=== PATIENT | female | born 1965 | race Caucasian/White ===

== ENCOUNTER → 2017-07-18 22:21 | Outpatient (CLI) | payer BC, SELFPAY ==
[2017-07-21 15:13] LABS: HPV Reflexed? NOT INDICATED
== END ==
PROVIDERS: Visit Provider Obstetrics & Gynecology
DX: Z12.4 Encounter for screening for malignant neoplasm of cervix (principal); Z12.72 Encounter for screening for malignant neoplasm of vagina
CPT/HCPCS: 88175; G0145

== ENCOUNTER → 2017-08-15 09:14 | Outpatient (CLI) | payer BC, SELFPAY ==
--- NOTE | 2017-08-15 09:17 | BI_ITS ---
MAMMOGRAPHY - BILATERAL SCREENING REASON FOR EXAM: Female, 52 years old. Routine annual screening examination. PERTINENT HISTORY: Non-contributory. TECHNIQUE: Digital bilateral breast allyson (3D mammographic acquisition) in the CC and MLO projections. 2-D mediolateral oblique (MLO) and craniocaudad (CC) views of both breasts were obtained. CAD: Full Field Digital Mammography with Computer Added Detection was performed. COMPARISON: Comparison is made with prior study dated August 09, 2016 and May 05, 2015. FINDINGS: Breast Composition: There are scattered areas of fibroglandular density. There are no dominant masses or suspicious calcifications. Stable benign-appearing bilateral axillary lymph nodes. No other significant abnormalities are identified. There has been no significant change since the prior study. BI/SCREENING MAMM (CAD), BILAT IMPRESSION: Stable bilateral screening mammogram. Yearly follow-up mammogram recommended. (A) ASSESSMENT CATEGORY: BIRADS Category 2: Benign. A letter regarding these results will be sent to the patient by the facility within 30 days. Approximately 10% of breast cancers are not detected by mammography. A normal mammogram should not delay biopsy of a clinically suspicious abnormality. [id number] Electronically Signed: Jac Chandra MD at 11:12 EDT Tel [phone], Service support ,
== END ==
PROVIDERS: Family Provider Family Medicine; PCP Family Medicine; Visit Provider Obstetrics & Gynecology
DX: Z12.31 Encounter for screening mammogram for malignant neoplasm of breast (principal)
CPT/HCPCS: 77063; 77067

== ENCOUNTER → 2017-10-25 14:41 | Outpatient (CLI) | payer BC, SELFPAY ==
--- NOTE | 2017-10-25 14:47 | CT_ITS ---
STUDY: CT CHEST WITHOUT CONTRAST REASON FOR EXAM: Female, 52 years old. Acute midline thoracic back pain RADIATION DOSAGE (If Supplied By Facility): CTDIvol = ( 18.08 ) mGy, DLP = ( 645.96 ) mGycm TECHNIQUE: Transaxial imaging was performed without the administration of intravenous contrast material. Individualized dose optimization techniques were used for this CT. COMPARISON: None. FINDINGS: Closely unremarkable thyroid. Lungs are adequately inflated and clear. There are several pulmonary micronodules noted bilaterally. One in the right upper lobe measuring 4.3 mm. A second in the right middle lobe measuring 2.8 mm and a third in the left upper lobe measuring 4.5 mm. There is no demonstrated pleural abnormality. There is borderline cardiomegaly. Normal pericardium. Several mediastinal lymph nodes are noted without bulky appearance. Normal hilar regions. Normal unenhanced pulmonary arteries. Normal aorta arch and descending thoracic aorta. There are multi-level degenerative changes of the thoracic spine. There is no demonstrated abnormality of the visualized upper abdomen. CT/Chest without Contrast IMPRESSION: 1. No acute airspace disease. 2. Bilateral pulmonary micronodules as above. Recommend repeat chest CT in 3-6 months 3. Several nonspecific small mediastinal lymph nodes Electronically Signed: Butch Egan DO at 11:48 EDT Tel , Service support ,
== END ==
PROVIDERS: Family Provider Family Medicine; PCP Family Medicine; Visit Provider Family Medicine
DX: M54.6 Pain in thoracic spine (principal)
CPT/HCPCS: 71250

== ENCOUNTER → 2018-07-06 14:07 | Outpatient (CLI) | payer BC, SELFPAY ==
--- NOTE | 2018-07-06 14:10 | CT_ITS ---
STUDY: CT CHEST WITH CONTRAST REASON FOR EXAM: Female, 53 years old. Follow-up of mediastinal lymph nodes RADIATION DOSAGE (If Supplied By Facility): CTDIvol = ( 12.99 ) mGy, DLP = ( 592.94 ) mGycm TECHNIQUE: Transaxial imaging was performed following intravenous administration of Isovue 300 100 IV. Individualized dose optimization techniques were used for this CT. COMPARISON: None. FINDINGS: TRACHEA, THYROID, ESOPHAGUS: No tracheomalacia,stricture or wall thickening. Thyroid and esophagus are normal CARDIOVASCULAR SYSTEM: The thoracic aorta is normal with no focal aneurysm or dissection. There are no abnormal calcifications/metallic densities at the aortic root. The pulmonary trunk and the left and right pulmonary arteries and their lobar and segmental branches all fail to show any abnormal and persistent filling defects to indicate the presence of pulmonary embolism. The heart is normal in size with no demonstration of any right ventricular strain. No developmental vascular anomalies are seen. JULIÁN AND LYMPH NODES: No hilar masses and no mediastinal, hilar, axillary or supraclavicular adenopathy the small reactive mediastinal lymph nodes noted in the examination of October 25, 2017 are no more evident LUNGS, LOW-ATTENUATION: No traction bronchiectasis, honeycombing,emphysema, lung cysts or cavitations LUNGS, HIGH ATTENUATION: No nodules/masses, ground glass opacities/consolidations or increased interstitial markings LUNGS, MOSAIC/CRAZY PAVING: Not evident PLEURA AND CHEST WALL: No plural effusions, pneumothoraces,rib fractures or any osteolytic/osteoblastic changes . The soft tissue chest wall including the breasts are normal UPPER ABDOMEN: Fatty infiltration of the liver. CT/Chest WITH Contrast IMPRESSION: No acute findings in the lungs. No evidence of any pulmonary embolism. The thoracic aorta is normal. The small mediastinal lymph nodes noted in the lateral examination of October 26, 2007 seen are no more evident Electronically Signed: Davon Claudio MD at 5:54 EST Tel , Service support ,
[2018-07-06 15:05] LABS: CREATININE FINGERSTICK 1.1 mg/dL (0.55-1.02)
== END ==
PROVIDERS: Family Provider Family Medicine; PCP Family Medicine; Referring Provider Family Medicine; Visit Provider Family Medicine
DX: R59.0 Localized enlarged lymph nodes (principal)
CPT/HCPCS: 71260; Q9967

== ENCOUNTER → 2018-09-11 | Outpatient (CLI) | payer BC, SELFPAY ==
--- NOTE | 2018-09-11 07:40 | BI_ITS ---
MAMMOGRAPHY - BILATERAL SCREENING 3-D TOMOSYNTHESIS REASON FOR EXAM: Female, 53 years old. Bilateral Screening 3-D tomosynthesis PERTINENT HISTORY: Right nipple tenderness times one week.. TECHNIQUE: 2-D mammograms and 3-D Tomosynthesis of the breast (s) were performed. CAD was performed. COMPARISON: August 15, 2017. FINDINGS: The breast composition is composed of scattered fibroglandular density. Scattered benign calcifications are seen. No dense spiculated masses or suspicious microcalcifications are identified. No architectural distortion is identified. There is no skin thickening or retraction. There has been no significant change since the prior study. BI/SCREENING MAMM (CAD), BILAT IMPRESSION: No mammographic signs of malignancy. Routine yearly mammograms recommended. ASSESSMENT CATEGORY: BIRADS Category 1: Negative. A letter regarding these results will be sent to the patient by the facility within 30 days. FOLLOW UP RECOMMENDATION: Yearly follow up mammogram recommended. (A) Approximately 10% of breast cancers are not detected by mammography. A normal mammogram should not delay biopsy of a clinically suspicious abnormality. Electronically Signed: Jason Chaudhry MD at 15:40 EDT , Service support ,
== END | disposition home or self-care (01) ==
LOC: OPBI 07:39
PROVIDERS: Family Provider Family Medicine; PCP Family Medicine; Referring Provider Family Medicine; Visit Provider Family Medicine
DX: Z00.00 Encounter for general adult medical examination without abnormal findings (principal); Z12.31 Encounter for screening mammogram for malignant neoplasm of breast
CPT/HCPCS: 77063; 77067

== ENCOUNTER → 2019-11-23 11:13 | Outpatient (CLI) | payer OTHER, SELFPAY ==
[2019-11-28 19:59] LABS: HPV Reflexed? NOT INDICATED
== END ==
PROVIDERS: PCP Family Medicine; Visit Provider Obstetrics & Gynecology
DX: Z12.4 Encounter for screening for malignant neoplasm of cervix (principal)
CPT/HCPCS: 88175; G0145

== ENCOUNTER → 2020-08-01 11:30 | Outpatient (CLI) | payer OTHER, SELFPAY ==
--- NOTE | 2020-08-01 11:35 | RAD_ITS ---
EXAM: XR RIGHT RIBS, 2 VIEWS : 1965 CLINICAL INDICATION: PAIN TECHNIQUE: Frontal and oblique views of the right ribs. This report was created using [employer] report generation technology. COMPARISON: CT scan of the chest from July 06, 2018 FINDINGS: LUNGS AND PLEURAL SPACES: Unremarkable. No consolidation or edema. No pneumothorax. No effusion. BONES/JOINTS: Unremarkable. No displaced fracture. No sclerotic or destructive changes observed. SOFT TISSUES: Unremarkable. No soft tissue swelling or gas. RAD/Ribs Unil 2V No CXR IMPRESSION: No evidence of displaced rib fracture. at 2111 Reported and signed by: Parish Rocha MD Electronically Signed: Parish Rocha MD at 21:10 EDT Tel , Service support ,
--- NOTE | 2020-08-01 11:35 | RAD_ITS ---
HISTORY: BACK PAIN COMPARISON: CT scan of the chest from July 06, 2018 FINDINGS: # of images incl. paperwork: 2 XR Spine Thoracic 2 Views: Kyphosis persists. Multiple bridging enthesophytes persists. Thoracic vertebral bodies are normal in height. No acute thoracic spine fracture or subluxation. No significant degenerative change. RAD/Thoracic Spine 2 Views IMPRESSION: No acute thoracic spine fracture or subluxation. at 2004 Reported and signed by: Parish Rocha MD Electronically Signed: Parish Rocha MD at 21:08 EDT Tel , Service support ,
--- NOTE | 2020-08-01 11:35 | RAD_ITS ---
HISTORY: PAIN EXAM: XR Chest 2 Views: COMPARISON: May 19, 2015 FINDINGS: # of images incl. paperwork: 2 Lungs are clear. Heart is not enlarged. No acute osseous pathology perceived. Pulmonary vascularity is distinct. No effusions. RAD/Chest PA and Lateral IMPRESSION: No acute cardiopulmonary disease. at 2108 Reported and signed by: Parish Rocha MD Electronically Signed: Parish Rocha MD at 21:07 EDT Tel , Service support ,
== END ==
PROVIDERS: PCP Family Medicine; Referring Provider Family Medicine; Visit Provider Family Medicine
DX: M54.9 Dorsalgia, unspecified (principal)
CPT/HCPCS: 71046; 71100; 72070

== ENCOUNTER 2020-09-08 10:51 | Day surgery (SDC) | payer OTHER, SELFPAY ==
--- NOTE | 2020-09-05 13:30 | EKG12_ITS ---
Test Reason : PRE-OP Blood Pressure : / mmHG Vent. Rate : 073 BPM Atrial Rate : 073 BPM P-R Int : 164 ms QRS Dur : 082 ms QT Int : 372 ms P-R-T Axes : 053 -11 014 degrees QTc Int : 409 ms Normal sinus rhythm Normal ECG Confirmed by CAM BURK, ANKUSH ([id number]), features editor NEHEMIAH TORRES ([id number]) on 09/08/2020 12:30:44 PM Referred By: Godfrey Russell Confirmed By:ANKUSH LEVY MD
--- NOTE | 2020-09-05 13:32 | RAD_ITS ---
STUDY: X-RAY CHEST REASON FOR EXAM: Female, 55 years old. PREOP TECHNIQUE: PA and lateral views of the chest. COMPARISON: 08/01/2020 FINDINGS: The lungs are clear and expanded. There is no demonstrated pleural abnormality. Normal size heart. Normal mediastinum and kenna. Normal visualized pulmonary arteries. Normal visualized aortic arch and descending thoracic aorta. Normal visualized thoracic spine. Normal visualized ribs, clavicles, and shoulders. There is no demonstrated abnormality of the visualized soft tissue structures of the upper abdomen. RAD/Chest PA and Lateral IMPRESSION: Normal x-ray examination of the chest. Electronically Signed: Adonay Easley MD at 12:07 EDT Tel , Service support ,
[2020-09-05 14:54] LABS: Hematocrit 42.2 % (37-47); Hemoglobin 13.7 g/dL (12.0-15.0); Mean Corp Hgb Conc 32.5 g/dL (32-36); Mean Corpuscular Hgb 31.4 pg (27.0-32.0); Mean Corpuscular Volume 96.6 fL (81-99); Mean Platelet Vol. 9.6 fl (6.2-12.0); Platelet Count 294 K/mm3 (150-450); RBC Distribution Width SD 42.9 fl (35.1-43.9); Red Blood Count 4.37 M/mm3 (4.2-5.4); White Blood Count 8.4 K/mm3 (4.4-11.0)
[2020-09-05 15:01] LABS: Prothrombin Time (Protime)PT. 12.4 SECONDS (11.7-14.9)
[2020-09-05 15:03] LABS: Partial Thromboplast Time 24.3 Seconds (24.1-36.2)
[2020-09-05 15:09] LABS: Microalbumin,Random Urine 10.9 mg/L (NO RANGE EST.)
[2020-09-05 16:04] LABS: ALB/GLOB Ratio 1.1 RATIO (0.9-2.4); AST(SGOT) 24 U/L (15-37); Alanine Aminotransfer ALT/SGPT 40 U/L (13-56); Albumin, Serum 3.9 g/dL (3.2-5.0); Alkaline Phosphatase 73 U/L (45-117); Anion Gap 7 (5-15); BUN 14 mg/dL (7-18); BUN/Creat Ratio 19.3 RATIO (10-20); Calcium,Total 9.6 mg/dL (8.5-10.1); Chloride 105 mmol/L (98-107); Cholesterol 145 mg/dL (200); Creatinine, Serum 0.73 mg/dL (0.55-1.02); EST Glomerular Filtration Rate 88 mL/min (>60); Est Glom Filt Rate - Afr Amer 106 mL/min (>60); Globulin 3.5 g/dL (2.2-4.2); Glucose 86 mg/dL (74-106); High Density Lipoprotein 55 mg/dL; Potassium 3.7 mmol/L (3.5-5.1); Protein, Total 7.4 g/dL (6.4-8.2); Sodium Level 138 mmol/L (136-145); Thyroid Stim Hormone (TSH) 2.25 uIU/mL (0.358-3.74); Triglycerides 135 mg/dL; Very Low Density Lipoprotein 27 mg/dL (5-40)
[2020-09-05 16:23] LABS: Hemoglobin A1c 5.5 % (3.8-5.6)
[2020-09-05 16:39] LABS: Internal QC Validated? YES +Cl - CLEAR BKGD; Pregnancy, Serum, hCG Quali. NEGATIVE Negative
[2020-09-05 18:48] LABS: Vitamin D,25 Hydroxy 13.3 ng/mL
--- NOTE | 2020-09-07 15:31 | PCM.HP.BLA ---
History and Physical Date of Admission: 09/08/20 Surgical History and Physical Ondina Foster, a 55 year old female 0 0 1 0 0, presents for D and C and hysteroscopy on September 08, 2020 at 1:00. 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 Vaginal Discharge which began 1 month ago. Ondina claims it started after normal activity and has been present 1 day. It occurs randomly. It is located in the vagina. Ondina characterizes the quality spotting. Severity is mild; It is aggravated by none. It is relieved by none. Associated signs and symptoms are none. Additional comments are: history of simple EM hyperplasia; EM stripe 7 mm. MEDICATIONS HISTORY: Patient is also takin. trazodone 50 mg tablet, 1 tab po PRN HS 2. fluoxetine 10 mg tablet, one by mouth daily 3. Abilify 5 mg tablet, One tablet by mouth daily 4. lisinopril 20 mg tablet, One tablet by mouth twice daily 5. amlodipine 5 mg tablet, One pill by mouth once a day ALLERGIES: NKDA, codeine sulfate, Nausea, fentanyl, Nausea/vomiting, Codeine, Severe nausea & vomiting, Fentanyl and Severe nausea & vomiting Infections - Chicken pox Illnesses - Obsessive-compulsive disorders and Hypertension Accidents - None Hospitalizations - see surgery Anxiety, Hypochondriasis, Low back pain; Review of Systems: GENERAL - Denies fever, or chills SKIN - Denies skin changes EYES - Denies visual changes EARS - Denies difficulty hearing NOSE - Denies nasal congestion or bleeding MOUTH - Denies sore throat or difficulty swallowing NECK - Denies pain or swelling RESPIRATORY - Denies shortness of breath or wheezing CARDIOVASCULAR - Denies palpitations or chest pain GASTROINTESTINAL - Denies nausea, vomiting, diarrhea, constipation GENITOURINARY - Denies dysuria, frequency of urination, incontinence of urine MUSCULOSKELETAL - Denies joint or muscle pain NEUROLOGICAL - Denies localized numbness or weakness PSYCHIATRIC - Denies depression or anxiety ENDOCRINE - Denies heat or cold intolerance, weight loss or gain HEMATO-IMMUNOLOGIC - Denies excesive bleeding with cuts SOCIAL HISTORY: Alcohol Use - drinks occasionally Smoking - Stopped smoking 09/2016, Uses vapor pen Diet - no special diet Lifestyle - moderate stress lifestyle Exercise - none Seat Belt Use - always Employer - [employer] [employer] 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 Father: -- circulatory issues. MENSTRUAL HISTORY: LMP Known?- ApproximateAmount/Duration - 8 day period, Frequency - 5-6 months days, LMP - 11/15/13, Age Onset Menarche - 10 PAST PREGNANCIES: Total Pregnancies - 1; Full Term Pregnancies - 0; Premature - 0; Abortions, Induced - 1; Abortions, Spontaneous - 0; Ectopics - 0; Multiple Births - 0; Living Children - 0 SURGICAL HISTORY: 1. 05/23/2013 hysteroscopy, D and C, polypectomy ; Dr José Luis Longoria - PHYSICAL EXAM BP- 122/94 Sitting, Right arm, large cuff Weight- 249.67750 lbs Height- 65.25 inch BMI:41.24 CONSTITUTIONAL - NAD, well nourished, and well developed SKIN - No rash, lesions, or ulcers HEENT - Normocephalic, PERRLA, EOMI NECK - No nodes, no nuchal rigidity and thyroid normal size and texture LYMPH NODES - Palpation of lymph nodes in neck and groins within normal limits LUNGS - CTA x2 without wheezes, crackles or rales CARDIAC - Regular rate and rhythm without rubs, murmurs, or gallops BREAST - No dominant masses, no tenderness, no axillary adenopathy, no nipple discharge, no skin changes ABDOMEN - Without hepatosplenomegaly, distention, masses, rebound, or guarding; normal bowel sounds; no hernias EXTREMITIES - No edema or calf tenderness NEUROLOGICAL - Cranial nerves II-XII grossly intact PSYCHIATRIC - A and O to time, place, person, mood and affect External Genitial Vagina - non-tender without lesions Urethra/Urethral Meatus - non-tender Bladder - non-tender Vagina - loss of rugae Cervix - without cervical motion tenderness and has normal size and features without evident lesions Uterus - 5-6 cm in size, mobile and nontender Adnexa - clear without massess or tenderness ASSESSMENT/PLAN: 1. Postmenopausal Bleeding U/S shows thickened EM. Pt declined EMBx. History of simple EM Hyperplasia. Will proceed with D and C, H/S. Discussed RBAS and all questions answered.
[2020-09-08] VITALS (8 sets, daily range): BP systolic 116–144; BP diastolic 68–78; PULSE 63–74; RESP 16–18; TEMP 36.1–36.4; O2SAT 99–100; BMI 41.5
--- NOTE | 2020-09-08 | EMB_PTH ---
PATIENT: BLAINE CHIN LOC: [facility] [place] U#:[id number] AGE/SX: 55/F ROOM: RE09/08/[address]: Dr. Godfrey Russell MD : 1965 BED: DIS: 09/08/2020 SPEC #: [id number] RECD: 09/08/20 13:40 STATUS: SHANNAN RELucinda #: [id number] NAVYA: 09/08/20 00:[address]: Godfrey Russell DEPT: SURGICAL PATHOLOGY RECD BY: Aman Bañuelos ENTERED: 09/09/20 08:03 SP TYPE: ENDOM BX/C OT DR: Dr. Ryan Stone MD Tissues: A - Endometrium, NOS B - Endocervical Procedures: Surgery Specimen Level IV HEADER OPERATION: Hysteroscopy, dilation and curettage PRE-OP DIAGNOSIS: Postmenopausal bleeding TISSUE SUBMITTED: A ? Endometrial curettings, B ? Endocervical curettings MICROSCOPIC DIAGNOSIS A. Endometrium, curettings: Polypoid fragments of simple hyperplasia without atypia with focal glandular breakdown. Rare strips of benign superficial squamous mucosa. B. Endocervix, curettings: Rare strips of benign superficial endocervix and squamous mucosa. No evidence of dysplasia. AM:matty 09/10/2020 COMMENT Case has been reviewed in consultation with Dr. Delcid who concurs with the above diagnosis. IDC:ARNALDO MICROSCOPIC DESCRIPTION Slides are reviewed. GROSS DESCRIPTION A - Received in fixative is one container labeled with the patient's name and designated endometrial curettings. The specimen consists of multiple hemorrhagic fragments of shields soft tissue that in aggregate measure 1.5 x 1.5 x 0.2 cm. The specimen is totally submitted in one cassette. B - Received in fixative is one container labeled with the patient's name and designated endocervical curettings. The specimen consists of multiple fragments of hemorrhagic mucoid tissue that in aggregate measure 1.5 x 1.5 x 0.1 cm. The specimen is totally submitted in one cassette. / ARNALDO:matty 09/09/20 TC:5 CPT: 07932 x2
[2020-09-08 09:20] LABS: PTHIN 48.2 pg/mL (18.4-80.1)
[2020-09-08] MEDS: Lactated Ringers 1,000 ML 100 ML IV (11:38)
--- NOTE | 2020-09-08 12:57 | OP.PCM_ITS ---
Problems Associated Problem List Diagnoses (1) Post-menopausal bleeding: Report of Operation Date of Procedure: 09/08/20 Pre-Operative Diagnosis: Postmenopausal Bleeding, Thickened Endometrium Post-Operative Diagnosis: Postmenopausal Bleeding, Thickened Endometrium Surgery/Procedure Performed:: Diagnostic Hysteroscopy, Dilation and Curettage Description of Surgical Findings:: 8 cm uterus with atrophic endometrium and thin 1 cm polyp. Type of Anesthesia: MAC Anesthesiologist: Domenic Dominguez Specimen's removed: Endocervical and endometrial curettings Drains: None Estimated Blood Loss (mL): Minimal Fluids Replaced: Styloid Description of Procedure: Surgeon: Godfrey Russell MD, FACOG Indications: This is a 55 year old patient who has the above diagnosis. The patient has been counseled regarding the risk and indications of this procedure including the possibility of bleeding, infection, and injury to surrounding structures such as bowel bladder. All questions were answered and we consider the patient well-informed. Procedure: The patient was taken to the operating room where after induction of general anesthesia, she was placed in the dorsolithotomy position and prepped a nd draped in the usual sterile fashion. The bladder was drained of approximately 50 cc of clear yellow urine with a catheter. Anterior cervix was grasped with the tenaculum and dilated to about 4-5 mm. A 3 mm hysteroscope was placed in the uterus of the above findings were noted. Cervix was dilated to about 7-8 mm and uterus was gently curetted removing all contents. Hysteroscope was reinserted and all material was noted to be removed. In the course of the procedure approximately 100 cc of saline distending media was used and virtually all of this was recovered. Patient tolerated procedure well was taken to recovery room in satisfactory condition sponge instrument and needle counts were all reportedly correct. Estimated blood loss for the case was minimal. Specimens to pathology was endometrial curettings Complications: None Complications None Admit VTE Documentation VTE Present on Admission: Yes VTE Mechan Device Prophylaxis: SCD's
--- NOTE | 2020-09-08 13:07 | PCM.DC ---
Discharge Instructions Outpatient Procedure Reason For Visit: Postmenopausal Bleeding Diet Discharge Diet: No restrictions (Increase fluid intake for the next 48 hours.) and - (Increase fluid intake for 48 hours.) Activity Discharge Activity: Return to Normal Activity, May Drive (when you are no longer taking narcotic pain medications.), May Shower and May Take a Tub Bath (in 7 days) May resume sexual activity in: 1 week Additional Activity Instructions:: Ambulate often the next week after surgery. Nothing in the vagina for 5 days. Dressing / Incision Call your doctor if your incision/area has: Continuous Slow Oozing, Sudden Increased Bleeding, Increased Pain/ Swelling, Increased Redness and Foul Smelling Discharge Call your doctor if you observe: Fever of 101 or Higher, Inability to urinate, Inability to have a bowel movement and Using more than one pad per hour Follow Up Care Please Follow Up With: Godfrey Russell MD When: 2-3 weeks Test Results: Test results from this visit will be discussed in further detail at your follow-up appointment, if applicable. Discharge Plan Admission Primary Reason for Your Visit: Polstmenopausal Bleeding Attending Provider: Godfrey Russell Primary Care Provider: Ryan Stone Discharge Orders/Prescriptions Prescriptions: Continued trazodone 50 MG tablet 50 mg PO QHS RF: 0 lisinopril 20 mg Tablet 20 mg PO BID RF: 0 amlodipine 5 mg Tablet 5 mg PO DAILY RF: 0 fluoxetine 10 MG capsule 10 mg PO QHS RF: 0 aripiprazole 5 MG tablet 5 mg PO QHS RF: 0 Referrals: Ryan Stone MD [Primary Care Provider] - Disposition Disposition (needs filled in before D/C Order can be placed): Home, self care
--- NOTE | 2020-09-08 13:24 | DCINST_ITS ---
Discharge Instructions Outpatient Procedure Reason For Visit: Postmenopausal Bleeding Diet Discharge Diet: No restrictions and - (Increase fluid intake for 48 hours.) Activity Discharge Activity: May Drive (when you are no longer taking narcotic pain m edications.), May Shower and May Take a Tub Bath (in 7 days) May resume sexual activity in: 1 week Additional Activity Instructions:: Ambulate often the next week after surgery. Nothing in the vagina for 5 days. Dressing / Incision Call your doctor if your incision/area has: Continuous Slow Oozing, Sudden Increased Bleeding, Increased Pain/ Swelling, Increased Redness and Foul Smelling Discharge Call your doctor if you observe: Fever of 101 or Higher, Inability to urinate, Inability to have a bowel movement and Using more than one pad per hour Follow Up Care Please Follow Up With: Godfrey Russell MD Test Results: Test results from this visit will be discussed in further detail at your follow-up appointment, if applicable. Discharge Plan Admission Primary Reason for Your Visit: Polstmenopausal Bleeding Attending Provider: Godfrey Russell Primary Care Provider: Ryan Stone Discharge Orders/Prescriptions Prescriptions: Continued trazodone 50 MG tablet 50 mg PO QHS RF: 0 lisinopril 20 mg Tablet 20 mg PO BID RF: 0 amlodipine 5 mg Tablet 5 mg PO DAILY RF: 0 fluoxetine 10 MG capsule 10 mg PO QHS RF: 0 aripiprazole 5 MG tablet 5 mg PO QHS RF: 0 Referrals: Ryan Stone MD [Primary Care Provider] - Disposition Disposition (needs filled in before D/C Order can be placed): Home, self care
== END 2020-09-08 14:59 | disposition home or self-care (01) ==
LOC: SDC 10:52 → AC 10:55
PROVIDERS: PCP Family Medicine; Referring Provider Obstetrics & Gynecology; Visit Provider Obstetrics & Gynecology
PROC: 0UDB8ZZ Extraction of Endometrium, Via Natural or Artificial Opening Endoscopic (ICD-10-PCS; CPT 58558; principal; 2020-09-08 12:50)
DX: N85.01 Benign endometrial hyperplasia (principal); N95.0 Postmenopausal bleeding; Z20.822 Contact with and (suspected) exposure to COVID-19; I10 Essential (primary) hypertension; F41.9 Anxiety disorder, unspecified; F42.9 Obsessive-compulsive disorder, unspecified; Z79.899 Other long term (current) drug therapy; F17.290 Nicotine dependence, other tobacco product, uncomplicated
CPT/HCPCS: 00952; 58558; 36415; 71046; 80053; 80061; 82043; 82306; 82570; 83036; 83970; 84443; 84703; 85027; 85610; 85730; 86850; 86900; 86901; 87426; 88305; 93005; C9803; J7120; J2405

== ENCOUNTER → 2020-09-18 07:14 | Outpatient (CLI) | payer OTHER, SELFPAY ==
[2020-09-08 11:22] VITALS: BMI 41.5
--- NOTE | 2020-09-18 07:16 | BI_ITS ---
MAMMOGRAPHY - BILATERAL SCREENING REASON FOR EXAM: Female, 55 years old. Routine annual screening examination. PERTINENT HISTORY: Non-contributory. TECHNIQUE: Digital bilateral breast nayla (3D mammographic acquisition) in the CC and MLO projections. 2-D mediolateral oblique (MLO) and craniocaudad (CC) views of both breasts were obtained. CAD: Full Field Digital Mammography with Computer Added Detection was performed. COMPARISON: Comparison is made with prior study dated 09/11/2018 and 08/15/2017. FINDINGS: Breast Composition: There are scattered areas of fibroglandular density. There are no dominant masses or suspicious calcifications. Stable benign-appearing bilateral axillary lymph nodes. No other significant abnormalities are identified. There has been no significant change since the prior study. BI/SCRN MAMM (CAD)W/NAYLA BILAT IMPRESSION: Stable bilateral screening mammogram. Yearly follow-up mammogram recommended. (A) ASSESSMENT CATEGORY: BIRADS Category 2: Benign. A letter regarding these results will be sent to the patient by the facility within 30 days. Approximately 10% of breast cancers are not detected by mammography. A normal mammogram should not delay biopsy of a clinically suspicious abnormality. [id number] Electronically Signed: Jac Chandra MD at 8:29 EDT , Service support ,
== END ==
PROVIDERS: PCP Family Medicine; Referring Provider Obstetrics & Gynecology; Visit Provider Obstetrics & Gynecology
DX: Z12.31 Encounter for screening mammogram for malignant neoplasm of breast (principal)
CPT/HCPCS: 77063; 77067

== ENCOUNTER 2020-10-27 08:31 | Day surgery (SDC) | payer OTHER, SELFPAY ==
[2020-09-08 11:22] VITALS: BMI 41.5
[2020-10-22 14:55] LABS: Hematocrit 41.8 % (37-47); Hemoglobin 13.8 g/dL (12.0-15.0); Mean Corpuscular Hgb 31.9 pg (27.0-32.0); Mean Corpuscular Volume 96.8 fL (81-99); Mean Platelet Vol. 9.4 fl (6.2-12.0); Platelet Count 304 K/mm3 (150-450); RBC Distribution Width CV 12.7 % (11.6-14.6); RBC Distribution Width SD 45.1 fl (35.1-43.9); Red Blood Count 4.32 M/mm3 (4.2-5.4); White Blood Count 7.6 K/mm3 (4.4-11.0)
[2020-10-22 15:03] LABS: Partial Thromboplast Time 24.8 Seconds (24.1-36.2); Prothrombin Time (Protime)PT. 12.1 SECONDS (11.7-14.9)
[2020-10-22 15:54] LABS: ALB/GLOB Ratio 1.1 RATIO (0.9-2.4); AST(SGOT) 17 U/L (15-37); Alanine Aminotransfer ALT/SGPT 25 U/L (13-56); Albumin, Serum 3.8 g/dL (3.2-5.0); Alkaline Phosphatase 71 U/L (45-117); Anion Gap 6 (5-15); BUN 17 mg/dL (7-18); BUN/Creat Ratio 23.3 RATIO (10-20); Calcium,Total 9.4 mg/dL (8.5-10.1); Chloride 105 mmol/L (98-107); Creatinine, Serum 0.73 mg/dL (0.55-1.02); EST Glomerular Filtration Rate 87 mL/min (>60); Est Glom Filt Rate - Afr Amer 106 mL/min (>60); Globulin 3.4 g/dL (2.2-4.2); Glucose 92 mg/dL (74-106); Magnesium 2.1 mg/dL (1.6-2.6); Potassium 3.8 mmol/L (3.5-5.1); Protein, Total 7.2 g/dL (6.4-8.2); Sodium Level 139 mmol/L (136-145)
[2020-10-22 16:15] LABS: Pregnancy, Serum, hCG Quali. NEGATIVE Negative (0-9 Nonpreg)
[2020-10-22 16:54] LABS: Internal QC Validated? YES +Cl - CLEAR BKGD
--- NOTE | 2020-10-25 14:07 | HP.PCM_ITS ---
History and Physical Date of Admission: 10/27/20 Surgical History and Physical Ondina Foster, a 55 year old female 0 0 1 0 0, presents for RAVH/BSO on October at 12:15. 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 She is postmenopausal. Updated medications, allergies and hx. She had a hysteroscopy and D+C done 09/08/20 which showed simple endometrial hyperplasia. With this result, the patient desires to proceed with hysterectomy. MEDICATIONS HISTORY: Patient is also takin. trazodone 50 mg tablet, 1 tab po PRN HS 2. fluoxetine 10 mg tablet, one by mouth daily 3. Abilify 5 mg tablet, One tablet by mouth daily 4. lisinopril 20 mg tablet, One tablet by mouth twice daily 5. amlodipine 5 mg tablet, One pill by mouth once a day ALLERGIES: NKDA, codeine sulfate, Nausea, fentanyl, Nausea/vomiting, Codeine, Severe nausea & vomiting, Fentanyl and Severe nausea & vomiting Infections - Chicken pox Illnesses - Obsessive-compulsive disorders and Hypertension Accidents - None Hospitalizations - see surgery Anxiety, Hypochondriasis, Low back pain; Review of Systems: GENERAL - Denies fever, or chills SKIN - Denies skin changes EYES - Denies visual changes EARS - Denies difficulty hearing NOSE - Denies nasal congestion or bleeding MOUTH - Denies sore throat or difficulty swallowing NECK - Denies pain or swelling RESPIRATORY - Denies shortness of breath or wheezing CARDIOVASCULAR - Denies palpitations or chest pain GASTROINTESTINAL - Denies nausea, vomiting, diarrhea, constipation GENITOURINARY - Denies dysuria, frequency of urination, incontinence of urine MUSCULOSKELETAL - Denies joint or muscle pain NEUROLOGICAL - Denies localized numbness or weakness PSYCHIATRIC - Denies depression or anxiety ENDOCRINE - Denies heat or cold intolerance, weight loss or gain HEMATO-IMMUNOLOGIC - Denies excesive bleeding with cuts SOCIAL HISTORY: Alcohol Use - drinks occasionally Smoking - Stopped smoking 09/2016, Uses vapor pen Diet - no special diet Lifestyle - moderate stress lifestyle Exercise - none Seat Belt Use - always 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 Father: -- circulatory issues. MENSTRUAL HISTORY: LMP Known?- ApproximateAmount/Duration - 8 day period, Frequency - 5-6 months days, LMP - 11/15/13, Age Onset Menarche - 10 PAST PREGNANCIES: Total Pregnancies - 1; Full Term Pregnancies - 0; Premature - 0; Abortions, Induced - 1; Abortions, Spontaneous - 0; Ectopics - 0; Multiple Births - 0; Living Children - 0 SURGICAL HISTORY: 1. 09/08/2020 hysteroscopy, D and C ; Godfrey Russell M.D. 2. 05/23/2013 hysteroscopy, D and C, polypectomy ; Dr José Luis Longoria PHYSICAL EXAM BP- 142/84 Sitting, Right arm, large cuff Weight- 250.96248 lbs Height- 65.25 inch BMI:41.37 CONSTITUTIONAL - NAD, well nourished, and well developed SKIN - No rash, lesions, or ulcers HEENT - Normocephalic, PERRLA, EOMI NECK - No nodes, no nuchal rigidity and thyroid normal size and texture LYMPH NODES - Palpation of lymph nodes in neck and groins within normal limits LUNGS - CTA x2 without wheezes, crackles or rales CARDIAC - Regular rate and rhythm without rubs, murmurs, or gallops BREAST - No dominant masses, no tenderness, no axillary adenopathy, no nipple discharge, no skin changes ABDOMEN - Without hepatosplenomegaly, distention, masses, rebound, or guarding; normal bowel sounds; no hernias EXTREMITIES - No edema or calf tenderness NEUROLOGICAL - Cranial nerves II-XII grossly intact PSYCHIATRIC - A and O to time, place, person, mood and affect External Genitial Vagina - non-tender without lesions Urethra/Urethral Meatus - non-tender Bladder - non-tender Vagina - loss of rugae Cervix - without cervical motion tenderness and has normal size and features without evident lesions Uterus - 5-6 cm in size, mobile and nontender Adnexa - clear without massess or tenderness ASSESSMENT/PLAN: Postmenopausal Bleeding and Simple Endometrial Hyperplasia We discussed treatment options at length including long-term progesterone thera py versus proceeding with hysterectomy. Patient desires that we proceed with robotic assisted vaginal hysterectomy and bilateral salpingo-oophorectomy. We discussed the risks, benefits, and alternatives, at length and all questions were answered.
[2020-10-27] VITALS (8 sets, daily range): BP systolic 109–151; BP diastolic 70–88; PULSE 73–88; RESP 16; TEMP 35.8–36.7; O2SAT 95–99; BMI 41.5
[2020-10-27] MEDS: Gabapentin 600 MG Tablet PO (09:24)
[2020-10-27] MEDS: Lactated Ringers 1,000 ML 40 ML IV ×2 (09:24→13:15)
[2020-10-27] MEDS: Acetaminophen 500 MG Tablet 1000 MG PO (09:24)
[2020-10-27 09:35] LABS: Bedside Glucose 94 mg/dL (70-110)
--- NOTE | 2020-10-27 10:30 | HYST_PTH ---
PATIENT: BLAINE CHIN LOC: [facility] – [place] U#:[id number] AGE/SX: 55/F ROOM: RE10/27/[address]: Dr. Godfrey Russell MD : [id number] BED: DIS: 10/27/2020 SPEC #: [id number] RECD: 10/27/20 14:29 STATUS: SHANNAN RELucinda #: [id number] NAVYA: 10/27/20 10:[address]: Godfrey Russell DEPT: SURGICAL PATHOLOGY RECD BY: Kalyn Mosqueda ENTERED: 10/28/20 09:54 SP TYPE: HYSTERECT OTHR DR: Dr. Ryan Stone MD Tissues: Uterus, NOS Procedures: Surgery Specimen Level V HEADER OPERATION: ERAS, lap robotic hysterectomy, BSO PRE-OP DIAGNOSIS: Postmenopausal bleeding and simple endometrial hyperplasia TISSUE SUBMITTED: Uterus, bilateral fallopian tubes and ovaries MICROSCOPIC DIAGNOSIS Uterus, hysterectomy: Cervix ? nabothian cysts and minimal chronic inflammation. Endometrium ? proliferative endometrium with focal cystic change. Myometrium ? leiomyomas and adenomyosis. Right fallopian tube ? benign paratubal fatty tissue. Right ovary ? corpora albicantia. Left fallopian tube - benign paratubal fatty tissue. Left ovary - corpora albicantia. AM:matty 10/29/2020 MICROSCOPIC DESCRIPTION Slides are reviewed. GROSS DESCRIPTION Received in fixative is one container labeled with the patient's name and designated uterus, bilateral fallopian tubes and ovaries. The specimen consists of a hysterectomy specimen consisting of uterus with cervix and attached bilateral fallopian tubes and ovaries. The uterus with cervix weighs 50 gm and measures 7.5 x 5 x 3.5 cm. The serosal surface is shields, congested and glistening. The external os is slit-like in contour. The ectocervical mucosa is unremarkable. The endocervical canal measures 2.7 cm in length and the endocervical mucosa is shields, glistening and unremarkable. Sections of the cervix reveal a few cysts filled with mucoid material. The triangular endometrial cavity measures 3.5 cm in length and 1.5 cm in width. The endometrium is shields, glistening without any mass lesion and measures <0.1 cm in thickness. Sections of the uterine wall reveal multiple intramural masses. The largest mass measures 1 cm in diameter. Sections of the uterine wall reveal focal interrupted cut surfaces suspicious for adenomyosis. The uterine wall measures up to 1.5 cm in thickness. The right ovary measures 2 x 1 x 0.3 cm. The right fallopian tube measures 7 cm in length and 0.3 cm in diameter. The fimbrial end is identified. The middle portion of the fallopian tube shows an adipose tissue mass surrounding the fallopian tube measuring 3.5 x 3.5 x 1.5 cm. Sections of this mass reveal yellow adipose cut surfaces without area of hemorrhage, necrosis or cystic degeneration. The left ovary appears to be markedly atrophic and measures 1 x 0.7 x 0.3 cm. The left fallopian tube measures 4 cm in length and 0.3 cm in diameter. The fimbrial end is identified. The middle portion of the fallopian tube also shows adipose tissue surrounding it which measures 2.5 x 2 x 1.5 cm. Sections of this adipose tissue shows shields-yellow adipose cut surfaces without area of hemorrhage, necrosis or cystic degeneration. Computer Patternmaker sections are submitted in 12 cassettes as follows: 1 - anterior cervix, 2 - posterior cervix, 3-5 - anterior uterine wall, 6-8 - posterior uterine wall, entire endometrium is submitted, 9 - nodular masses, 10 - right fallopian tube and ovary, 11 - right fallopian tube with surrounding adipose tissue, 12 - left fallopian tube, left ovary, entirely submitted and fallopian tube with surrounding adipose tissue mass. / ARNALDO:matty 10/28/20 TC:1 CPT: 33101
[2020-10-27] MEDS: Cefazolin 2 GM in 0.9% Normal Saline 100 ML IV (11:39)
--- NOTE | 2020-10-27 11:55 | PCM.OPRPT ---
Report of Operation Date of Procedure: 10/27/20 Pre-Operative Diagnosis: Postmenopausal Bleeding; Recurrent Simple Endometrial Hyperplasia without Atypia Post-Operative Diagnosis: Postmenopausal Bleeding; Recurrent Simple Endometrial Hyperplasia without Atypia Surgery/Procedure Performed:: Robotic Assisted Vaginal Hysterectomy and Bilateral Salpingo-Oophorectomy Description of Surgical Findings:: 10 cm size uterus with normal-appearing fallopian tubes and ovaries Surgeon: Godfrey Russell paperhanger supervisor: Jonna York Type of Anesthesia: General (Endotracheal) Anesthesiologist: Rishi Wray Specimen's removed: Uterus with bilateral fallopian tubes and ovaries Drains: Burrell to straight drain Estimated Blood Loss (mL): Minimal Fluids Replaced: Crystalloid Description of Procedure: Indication: This is a 55 year old patient who has been having problems with postmenopausal bleeding and simple endometrial hyperplasia. Conservative measures have not been helpful. The patient has been counseled regarding the risks, benefits and alternatives of this procedure including the possibility of bleeding, infection, and injury to surrounding structures such as bowel bladder and all questions were answered. Procedure: Pt taken to the operating room where, after induction of general anesthesia, the patient was prepped and draped in the usual sterile fashion and placed on a non-slip Huggy-u-vac device. Trendelenburg test was satisfactory. Bladder was drained of urine with a Burrell catheter which was left in place. Anterior cervix grasped and cervix was dilated to about 3-4 mm. Uterus sounded to 8 cms. 0-Vicryl suture was placed at the 3:00 and 9:00 position of the cervix. A small Advincula Senior International Tax Manager Uterine Manipulator was then placed in the uterus and attention was turned to the laparoscopic portion of the procedure. Ropivocaine 0.5% was injected approximately 2-3 cm superior to the umbilicus and an 8 mm robotic camera port was introduced directly with intraperitoneal placement confirmed with CO2 insufflation. 8 mm robotic side ports were introduced under direct visualization approximately 11 cm lateral and 2 cm inferior to the umbilical port. A 5 mm left upper quadrant port was introduced and airseal insufflation with CO2 was started. The above findings were noted. Robot was docked without difficulty and attention turned to the robotic portion of the procedure. Approximately 30 cc of Ropivicaine was used. Bilateral infundibulopelvic ligaments/mesosalpinx were ligated with 35 alejandra bipolar coagulation to the level of the round ligament. The posterior aspect of the cervix was identified and then opened for about 1 cm using 25 watt monopolar cautery identifying the uterine manipulating device which had been placed vaginally. Bladder flap was opened and divided to the level of the round ligaments using monopolar cautery. Progressive bites were then ligated on each side of the cervix with 35 alejandra bipolar cautery to the uterine arteries. The anterior vaginal mucosa was entered and cervix circumscribed with monopolar cautery. Uterus and attached tubes and ovaries were removed through the vagina. Vaginal cuff was closed first with 0-Vicryl Kathleen stitches placed at each angle followed by closure of the mid-cuff with 0-Monocryl V-lock suture in two layers. Pelvis was copiously irrigated with saline and the right ureter was noted to peristalse. Robot was undocked and trocars were removed with as much gas as possible. Incisions were closed with 4-0 Monocryl subcuticular sutures and incisions covered with steri-strips. The patient tolerated the procedure well and was taken to the recovery room in satisfactory condition. Sponge, instruments and needle counts were all correct. There were no apparent complications of the surgery. Ancef 2 gms IV was given prior to the procedure. Grafts/Implants Used: None Complications None Admit VTE Documentation VTE Mechan Device Prophylaxis: SCD's
[2020-10-27] MEDS: Ropivacaine 0.5% 30 ML Vial (12:16)
[2020-10-27] MEDS: Lubricating Jelly 60 GM Tube 30 GM TOPICAL (12:16)
--- NOTE | 2020-10-27 13:39 | PCM.DC ---
Discharge Instructions Diet Discharge Diet: No restrictions Activity Discharge Activity: May Shower and May Take a Tub Bath May resume sexual activity in: 6 weeks (nothing in the vagina.) Lifting Restrictions: 25 pounds for 6 weeks. Dressing / Incision Call your doctor if your incision/area has: Continuous Slow Oozing, Sudden Increased Bleeding, Increased Pain/ Swelling, Increased Redness and Foul Smelling Discharge Call your doctor if you observe: Fever of 101 or Higher, Inability to urinate, Inability to have a bowel movement, Using more than 1 pad per hour and - (Some vaginal bleeding may be noted for up to 4-8 weeks.) Cleanse incision/area with: - (Let the soapy water run over your incision, rinse and pat dry.) Additional Dressing/Incision Instructions:: The white strips (Steri Strips) on your incisions will fall off on their own. If they fall off and it bothers you it is okay to put Band-Aids across the incisions. Follow Up Care Please Follow Up With: Godfrey Russell MD When: Call [phone] for an appointment to be seen in 2 weeks. Test Results: Test results from this visit will be discussed in further detail at your follow-up appointment, if applicable. Discharge Plan Admission Primary Reason for Your Visit: Robotic Vaginal Hysterectomy Attending Provider: Godfery Russell Primary Care Provider: Ryan Stone Discharge Orders/Prescriptions Prescriptions: New docusate sodium 100 mg tablet 100 mg PO BID PRN (Reason: constipation) Qty: 60 RF: 1 oxycodone 5 mg capsule 5 mg PO Q6H PRN (Reason: pain) 7 Days Qty: 10 RF: 0 Continued trazodone 50 MG tablet 50 mg PO QHS RF: 0 lisinopril 20 mg Tablet 20 mg PO BID RF: 0 amlodipine 5 mg Tablet 5 mg PO DAILY RF: 0 fluoxetine 10 MG capsule 10 mg PO QHS RF: 0 aripiprazole 5 MG tablet 5 mg PO QHS RF: 0 cholecalciferol (vitamin D3) [Vitamin D3] 50 mcg (2,000 unit) Capsule 50 mcg PO DAILY RF: 0 Referrals / Follow Up: Ryan Stone MD [Primary Care Provider] - Disposition Disposition (needs filled in before D/C Order can be placed): Home, self care
== END 2020-10-27 17:45 | disposition home or self-care (01) ==
LOC: SDC 08:31 → AC 08:32
PROVIDERS: Anesthesiology; PCP Family Medicine; Referring Provider Obstetrics & Gynecology; Visit Provider Obstetrics & Gynecology
PROC: 0UT94ZZ Resection of Uterus, Percutaneous Endoscopic Approach (ICD-10-PCS; CPT 58571; principal; 2020-10-27 10:10)
DX: N85.01 Benign endometrial hyperplasia (principal); D25.9 Leiomyoma of uterus, unspecified; N83.291 Other ovarian cyst, right side; N83.292 Other ovarian cyst, left side; N95.0 Postmenopausal bleeding; I10 Essential (primary) hypertension; F41.9 Anxiety disorder, unspecified; F32.9 Major depressive disorder, single episode, unspecified; G47.30 Sleep apnea, unspecified; Z79.899 Other long term (current) drug therapy; Z87.891 Personal history of nicotine dependence
CPT/HCPCS: 00840; 58571; S2900; 80053; 82962; 83735; 84703; 85027; 85610; 85730; 86850; 86900; 86901; 87426; 88307; C9803; J7120; J2405

== ENCOUNTER 2021-05-31 20:46 | Inpatient (IN) | payer OTHER, SELFPAY ==
[2021-05-31 20:48] VITALS: BP 127/61; PULSE 94; RESP 18; TEMP 36.6; O2SAT 99; BMI 39.8
--- NOTE | 2021-05-31 21:06 | EDS_ITS ---
HPI History of Present Illness HPI Narrative: Tripped over her dog, fell in the floor injuring her left hip. Chief Complaint: Lower Extremity Injury Informant: patient Occured/Mechanism Mechanism/Context: Yes injury Onset/Context/Timing Onset: Today and Hours Context: Sudden Onset Timing: Continuous Quality of Pain: Sharp Current Severity: Moderate Maximum Severity: Moderate Associated Symptoms Associated Symptoms: Negative for Parasthesia, Weakness and Loss of Funtion Narrative Narrative: 56-year-old female past medical history of hypertension. Prior hysterectomy. She was walking in her home and her dog ran by her feet she tripped and fell landing awkwardly injuring her left hip. She denies hitting her head. No LOC. States she felt fine prior to the fall. Complaining of left hip and lower femur pain. No prior history of hip or femur or knee injury or surgery. Prior similar symptoms: No Recent Illness/Hospitalization: No PFSH PFSH Medical History Alcohol use Anxiety CPAP (continuous positive airway pressure) dependence Depression Easy bruising Heartburn Hepatitis History of edema Hx of cardiovascular stress test Hx of echocardiogram Hypertension Injury of back Post-menopausal Smoker Wears glasses Home Medications trazodone 50 mg PO QHS PRN 12/23/15 [History Last Taken Unknown] aripiprazole 5 mg PO DAILY 09/05/20 [History Last Taken Unknown] fluoxetine 10 mg PO DAILY 09/05/20 [History Last Taken Unknown] methylphenidate HCl 17.25 mg PO DAILY 05/31/21 [History Last Taken Unknown] quinapril 20 mg PO DAILY 05/31/21 [History Last Taken Unknown] verapamil 180 mg PO DAILY 05/31/21 [History Last Taken Unknown] Allergy/AdvReac Type Severity Reaction Status Date / Time esomeprazole magnesium Allergy Other Verified 05/31/21 20:47 [From Nexium] codeine AdvReac Nausea Verified 05/31/21 20:47 fentanyl AdvReac Nausea Verified 05/31/21 20:47 Surgical History History of cervical polypectomy History of hysteroscopy Social History Smoking Status: Current every day smoker tobacco type: e-cigarettes ROS ROS ED ROS Narrative Denies recent illness. Review of Systems ROS Unobtainable: Denies due to encephalopathy Constitutional Constitutional ED: Denies chills, fever(s) or subjective Eyes Eyes: Denies blurry vision or change in vision ENT ENT ED: Denies ear pain Cardiovascular Cardiovascular: Denies chest pain or palpitations Respiratory/Chest Respiratory/Chest: Denies cough or dyspnea Gastrointestinal Gastrointestinal: Denies abdominal pain or nausea Genitourinary Genitourinary ED: Denies dysuria or hematuria Musculoskeletal Musculoskeletal: Denies arthralgias or myalgias Integumentary Denies abscess or rash Neurologic Neurologic: Denies headache(s) or weakness Psychiatric Psychiatric: Denies depression Endocrine Endocrinology: Denies polyuria Hematologic/Lymphatic Hematologic/Lymphatic: Denies easy bruising Allergic/Immunologic Allergic/Immunologic ED: Denies urticaria EXAM Physical Exam Narrative Exam Narrative: White female vital signs are stable afebrile. She is lying in bed on a full body brace. H EENT exam gives her a reactive light. Extremities intact. No facial trauma no scalp or head trauma. C-spine nontender. Trachea midline. Lungs clear to auscultation. Chest wall nontender. Heart regular rate and rhythm rate about 90 no murmur. Ribs are nontender. Abdomen soft nontender. Pelvic girdle intact. Left lower extremity is shortened and rotated. She has tenderness to her left hip and femur. She has dorsi and plantar flexion of left foot with normal sensation. Right lower extremity is unremarkable. Both upper extremities have 5-5 airline radio operator strength. Normal range of motion. No deformity or tenderness. Neurologically she is awake and alert with no focal deficits. Const Vital Signs: 05/31/21 20:48 Temperature 97.8 F Temperature Source Oral Pulse Rate 94 Respiratory Rate 18 Blood Pressure 127/61 H Blood Pressure Mean 83 Pulse Ox 99 Oxygen Delivery Method Room Air Positive well nourished, well developed and obese; Negative for cachectic, contractures or unkempt General Appearance ED: well developed and NAD; Negative for unkempt, cachectic or contractures Nutritional Appearance: obese; Negative for cachectic HEENT Reports moist mucous membranes normocephalic and atraumatic; Negative for trauma or tenderness Eyes PERRL Neck full ROM and supple Thyroid: Negative for tender Chest Wall inspection of chest normal and palpation of chest normal Resp normal respiratory effort, no retractions and clear to auscultation bilaterally Auscultation: Negative for rales, rhonchi or wheezes Cardio regular rate, regular rhythm, S1 normal heart sound, S2 normal heart sound and no murmurs GI non-tender, non-distended and no masses Auscultation: normoactive bowel sounds Palpation: soft; Negative for tender or guarding Back/Spine no CVA tenderness General Back: Negative for CVA tenderness Cervical Spine: Negative for cervical spine tenderness Thoracic Spine / Upper Back: Negative for thoracic spinal tenderness Lumbar Spine / Lower Back: Negative for lumbar spinal tenderness Extremity normal to inspection and full ROM Extremity Narrative: Extremities unremarkable except left lower extremity has tenderness at the left hip. Shortened and rotated. Also mild tenderness along the femur. Left foot appears to be neurovascularly intact. She is able to wiggle her toes. Has normal cap refill. Normal touch sensation. General Extremety ED: Negative for cyanosis or edema General Extremity: Negative for cyanosis or edema Neuro oriented x3 and moves all extremities Sensorium / Orientation: alert, oriented to person, oriented to place and oriented to time; Negative for orientation impaired, confused, lethargic or stuporous Motor Exam: strength 5/5 throughout; Negative for general weakness Psych mental status grossly normal Appearance: Negative for unkempt Mood & Affect: Negative for anxious Skin no wounds Lesions: no lesions Rashes: no rashes Trauma: Negative for abrasion or laceration MDM MDM MDM Narrative Medical decision making narrative: 56-year-old female fall she tripped over her dog. Concern for a left hip fracture. X-rays and labs are being obtained. She will be treated with IV morphine and Zofran. Repeat exam patient is doing well. Pain is well controlled currently with her first dose of morphine. I have already spoken to the hospitalist and the orthopedic physician she will be admitted and they will most likely do surgery on her left hip tomorrow. I did go over the films with the patient and her . Lab Data Attestation: I reviewed the patient's lab results. Lab results narrative: CBC shows a white count 9. Hemoglobin 13. Platelets 288. Electrolytes show potassium of 2.9. Gap of 8 normal BUN and creatinine. Glucose of 105. Labs: Laboratory Results - last 24 hr 05/31/21 05/31/21 05/31/21 21:15 21:15 21:15 WBC 9.9 RBC 4.22 Hgb 13.2 Hct 39.6 MCV 93.8 MCH 31.3 MCHC 33.3 RDW Std Deviation 42.0 RDW Coeff of Kecia 12.1 Plt Count 288 MPV 9.5 Sodium 141 Potassium 2.9 L Chloride 110 H Carbon Dioxide 23.0 Anion Gap 8 BUN 12 Creatinine 0.60 Estim Creat Clear Calc 91.97 Est GFR (MDRD) Af Amer 133 Est GFR (MDRD) Non-Af 110 BUN/Creatinine Ratio 20.2 H Glucose 105 Calcium 8.3 L Blood Type AB POSITIVE Antibody Screen NEGATIVE Radiography Diagnostic Testing: Left hip x-ray and pelvis interpreted by myself shows a intertrochanteric left hip fracture with follow-up of both greater and lesser trochanter. Pelvis unremarkable. Left femur x-ray shows the proximal intertrochanteric fracture. The distal femur is unremarkable. Interpreted by myself. Left knee x-ray shows no acute abnormality. Discharge Plan Triage Chief Complaint: Lower Extremity Injury ED Provider: Delmer Rodrigues Dx/Rx/DC Orders Clinical Impression: Fall, Closed left hip fracture, Acute hypokalemia Prescriptions: No Action trazodone 50 MG tablet 50 mg PO QHS PRN (Reason: Sleep) RF: 0 fluoxetine 10 MG capsule 10 mg PO DAILY RF: 0 aripiprazole 5 MG tablet 5 mg PO DAILY RF: 0 verapamil 180 mg capsule,ext rel. pellets 24 hr 180 mg PO DAILY RF: 0 quinapril 20 mg tablet 20 mg PO DAILY RF: 0 methylphenidate HCl 18 mg tablet extended release 24hr 17.25 mg PO DAILY RF: 0 Primary Care Provider: Ryan Stone Referrals: Ryan Stone MD [Primary Care Provider] - Disposition Disposition: [facility]
--- NOTE | 2021-05-31 21:11 | RAD_ITS ---
STUDY: X-RAY - LEFT FEMUR REASON FOR STUDY: Female, 56 years old. FELL, LEFT HIP AND LEG PAIN TECHNIQUE: 5 view(s) of the femur. COMPARISON: Left knee x-ray on the same day FINDINGS: An acute comminuted fracture of the left intertrochanteric region and proximal one third femoral shaft is present with foreshortening and mild displacement. Normal remaining aspects of the femoral shaft down to the knee joint. RAD/Femur Min 2 Views IMPRESSION: 1. An acute comminuted fracture of the left intertrochanteric region and proximal one third femoral shaft is present with foreshortening and mild displacement. Electronically Signed: Adrian Mobley MD at 22:47 EST , Service support ,
--- NOTE | 2021-05-31 21:11 | RAD_ITS ---
STUDY: X-RAY - LEFT KNEE REASON FOR EXAM: Female, 56 years old. FELL, LEFT LEG PAIN Other Info UNABLE TO MOVE LEG TECHNIQUE: 2 view(s) of the knee. COMPARISON: None. FINDINGS: Normal visualized distal femur. Normal visualized proximal tibia and fibula. Normal proximal tibiofibular articulation. There is no demonstrated fracture. Normal medial femorotibial compartment. Normal lateral femorotibial compartment. Normal patellofemoral articulation. There is no demonstrated joint effusion. The soft tissue structures are unremarkable. RAD/Knee 1 or 2 Views IMPRESSION: Normal x-ray examination of the knee. Electronically Signed: Adrian Mobley MD at 22:44 EST , Service support ,
--- NOTE | 2021-05-31 21:11 | RAD_ITS ---
STUDY: X-RAY - PELVIS REASON FOR EXAM: Female, 56 years old. FELL, LEFT LEG PAIN Other Info UNABLE TO MOVE LEG TECHNIQUE: One view of the pelvis was obtained. COMPARISON: None. FINDINGS: There is a non-specific bowel gas pattern. Normal visualized soft tissue structures. An acute comminuted fracture of the left intertrochanteric region and proximal one third femoral shaft is present with foreshortening and mild displacement. Normal bilateral iliac wings, sacroiliac joints and visualized sacrum. Normal visualized bilateral superior and inferior pubic rami. Normal pubic symphysis. Normal ischial tuberosities. Normal visualized right femoral head. Normal right acetabulum. Normal right hip joint. Normal visualized left femoral head. Normal left acetabulum. Normal left hip joint. RAD/Pelvis 1 or 2 Views IMPRESSION: 1. An acute comminuted fracture of the left intertrochanteric region and proximal one third femoral shaft is present with foreshortening and mild displacement. Electronically Signed: Adrian Mobley MD at 22:46 EST , Service support ,
[2021-05-31] MEDS: Ondansetron 4 MG/2 ML Vial IV (21:14)
[2021-05-31] MEDS: morphine 8 MG/ML Syringe IV (21:14)
[2021-05-31 21:42] LABS: Anion Gap 8 (5-15); BUN 12 mg/dL (7-18); BUN/Creat Ratio 20.2 RATIO (10-20); Calcium,Total 8.3 mg/dL (8.5-10.1); Chloride 110 mmol/L (98-107); EST Glomerular Filtration Rate 110 mL/min (>60); Est Glom Filt Rate - Afr Amer 133 mL/min (>60); Estimated Creatinine Clearance 91.97 ml/min; Glucose 105 mg/dL (74-106); Potassium 2.9 mmol/L (3.5-5.1); Sodium Level 141 mmol/L (136-145)
[2021-05-31 21:44] LABS: Hematocrit 39.6 % (37-47); Hemoglobin 13.2 g/dL (12.0-15.0); Mean Corp Hgb Conc 33.3 g/dL (32-36); Mean Corpuscular Hgb 31.3 pg (27.0-32.0); Mean Corpuscular Volume 93.8 fL (81-99); Mean Platelet Vol. 9.5 fl (6.2-12.0); Platelet Count 288 K/mm3 (150-450); RBC Distribution Width CV 12.1 % (11.6-14.6); Red Blood Count 4.22 M/mm3 (4.2-5.4); White Blood Count 9.9 K/mm3 (4.4-11.0)
--- NOTE | 2021-05-31 21:55 | RAD_ITS ---
STUDY: X-RAY CHEST REASON FOR EXAM: Female, 56 years old. FALL TECHNIQUE: Single AP portable view of the chest. COMPARISON: None. FINDINGS: The lungs are clear and expanded. There is no demonstrated pleural abnormality. Normal size heart. Normal mediastinum and kenna. Normal visualized pulmonary arteries. There is atherosclerotic tortuosity of the aortic arch and descending thoracic aorta. There are diffuse degenerative changes of the visualized thoracic spine. Normal visualized ribs, clavicles, and shoulders. There is no demonstrated abnormality of the visualized soft tissue structures of the upper abdomen. RAD/Chest 1 View IMPRESSION: Degenerative changes, as described above. No demonstrated acute cardiopulmonary process. Electronically Signed: Adrian Mobley MD at 22:46 EST , Service support ,
[2021-05-31 22:32] VITALS: BP 153/84; PULSE 88; RESP 15; O2SAT 98
--- NOTE | 2021-05-31 22:34 | PCM.HP.STD ---
HPI - General General Date of Admission: 05/31/21 HPI Narrative BLAINE CHIN, is a 56 F with a significant history of hypertension; obstructive sleep apnea but noncompliant with CPAP who presents to the emergency department with a fall. Reportedly patient tripped over her dog and landed awkwardly on her left lower extremity. She developed excruciating pain at the left lower extremity. The pain increases with movement and it improves with rest. Imaging at the emergency department was positive for fracture of the left hip. FORMERLY [facility] Medical History Alcohol use Anxiety CPAP (continuous positive airway pressure) dependence Depression Easy bruising Heartburn Hepatitis History of edema Hx of cardiovascular stress test Hx of echocardiogram Hypertension Injury of back Post-menopausal Smoker Wears glasses Home Medications trazodone 50 mg PO QHS PRN 12/23/15 [History Last Taken Unknown] aripiprazole 5 mg PO DAILY 09/05/20 [History Last Taken Unknown] fluoxetine 10 mg PO DAILY 09/05/20 [History Last Taken Unknown] methylphenidate HCl 17.25 mg PO DAILY 05/31/21 [History Last Taken Unknown] quinapril 20 mg PO DAILY 05/31/21 [History Last Taken Unknown] verapamil 180 mg PO DAILY 05/31/21 [History Last Taken Unknown] Allergy/AdvReac Type Severity Reaction Status Date / Time esomeprazole magnesium Allergy Other Verified 05/31/21 20:47 [From Nexium] codeine AdvReac Nausea Verified 05/31/21 20:47 fentanyl AdvReac Nausea Verified 05/31/21 20:47 Surgical History History of cervical polypectomy History of hysteroscopy Social History Smoking Status: Current every day smoker tobacco type: e-cigarettes ROS ROS Narrative Constitutional: Denies fever, chills, fatigue, anorexia and change in weight Eyes: Denies blurry vision, change in eye color, change in vision, discharge from eye(s), double vision, erythema, eye pain, loss of vision or other HEENT: Denies abnormal hearing, dysphagia, ear pain, epistaxis, headache(s), hearing loss, nasal congestion, nasal discharge, post nasal drip, sinus pressure, sore throat or other Cardiovascular: Denies chest pain or palpitations. Denies dyspnea on exertion, orthopnea and paroxysmal nocturnal dyspnea Respiratory/Chest: Denies cough, excessive phlegm production, shortness of breath with exertion and wheezing Gastrointestinal: Denies abdominal pain, coffee ground emesis, constipation, diarrhea, dyspepsia, hematemesis, hematochezia, loose stools, melena, nausea, vomiting or other Genitourinary: Denies burning urination, difficulty urinating, dysuria, hematuria, nocturia, urinary frequency, urinary hesitancy, urinary incontinence, urinary urgency or other Musculoskeletal: Left hip pain. Denies arthralgias. Neurologic: Denies abnormal gait, abnormal speech, confusion, disequilibrium, dizziness, focal weakness, headache(s), numbness, paresthesias, seizure-like activity, seizures, syncope, tingling, tremor(s) or other Psychiatric: Denies anxiety, depression, homicidal ideation, suicidal ideation or other Endocrinology: Denies change in body appearance, cold intolerance, excessive sweating, heat intolerance, polydipsia, polyuria or other Hematologic/Lymphatic: Denies anemia, easy bleeding, easy bruising, lymphadenopathy or other Integumentary: Denies rashes Allergic/Immunologic: Denies rhinitis, hives, eczema, asthma or other Vital Signs Vital Signs Vital Signs: 05/31/21 20:48 05/31/21 22:32 Temperature 97.8 F Temperature Source Oral Pulse Rate 94 88 Respiratory Rate 18 15 Blood Pressure 127/61 H 153/84 H Blood Pressure Mean 83 107 Pulse Ox 99 98 Oxygen Delivery Method Room Air Room Air Weight Weight: 108.5 kg Body Mass Index (BMI) 39.8 Physical Exam Narrative Physical exam: General: Well-nourished, well-developed. Head: Normocephalic, atraumatic, no tenderness Eyes: PERRLA, EOMI ENT, no trauma, moist mucous membranes, no rhinorrhea Neck: Nontender, full range of motion, no spinal tenderness, deformities, step-off CVS: Regular rate and rhythm. S1-S2 present. No murmur, gallop or rub. Respiratory : clear to auscultation bilaterally, chest wall nontender, no wheezing Abdomen: Soft, nontender, nondistended, normal bowel sounds, no masses : Deferred Back: Nontender, no CVA tenderness, no midline spinal tenderness, deformities, step-offs Extremities: Limited range of motion of right lower extremity. Left lower extremity was not tested secondary to fracture. Skin: Normal color, no trauma, abrasions Neuro: Alert, oriented, cranial nerves II through XII grossly intact. Psychiatry: Normal mood. Normal affect. Not depressed. Not anxious. Results Lab / Micro Data Result Diagrams: 05/31/21 21:15 05/31/21 21:15 Labs: Laboratory Results - last 24 hr 05/31/21 21:15: WBC 9.9, RBC 4.22, Hgb 13.2, Hct 39.6, MCV 93.8, MCH 31.3, MCHC 33.3, RDW Std Deviation 42.0, RDW Coeff of Kecia 12.1, Plt Count 288, MPV 9.5 05/31/21 21:15: Sodium 141, Potassium 2.9 L, Chloride 110 H, Carbon Dioxide 23.0, Anion Gap 8, BUN 12, Creatinine 0.60, Estim Creat Clear Calc 91.97, Est GFR (MDRD) Af Amer 133, Est GFR (MDRD) Non-Af 110, BUN/Creatinine Ratio 20.2 H, Glucose 105, Calcium 8.3 L 05/31/21 21:15: Blood Type AB POSITIVE, Antibody Screen NEGATIVE Assessment & Plan Assessment/Plan (1) Closed left hip fracture: QUALIFIERS: Encounter type: initial encounter Qualified Code(s): S72.002A - Fracture of unspecified part of neck of left femur, initial encounter for closed fracture (2) Fall: QUALIFIERS: Encounter type: initial encounter Qualified Code(s): W19.XXXA - Unspecified fall, initial encounter PLAN: Acute comminuted fracture of the left intertrochanteric region and proximal one third femoral shaft. Impression of pelvis x-ray by radiologist: An acute comminuted fracture of the left intertrochanteric region and proximal one third femoral shaft is present with foreshortening and mild displacement. Actual pelvis x-ray was independently interpreted and I agree radiologist interpretation. Femur x-ray was independently interpreted. Femur x-ray is consistent with pelvis x-ray. Knee x-ray is unremarkable Emergent department doctor discussed the case with Dr. Franky Dorado. Inpatient consult for orthopedic surgery. Morphine IV and oxycodone as needed ordered. Tylenol as needed ordered. Bowel protocol and antiemetics IV ordered. Keep n.p.o. While n.p.o. lactated Ringer's ordered. Check vitamin D level. Preoperative EKG ordered Revised cardiac risk index showed a 0.6, class I risk 3.9% 30-day risk of , RI or cardiac arrest. This is below average risk. However patient uses a BiPAP to sleep and classify as moderate risk perioperatively. Hypokalemia Potassium was 2.9. P.o. and IV potassium ordered. Trend BMP. Check magnesium. Placed on MedSurg with telemetry. Hypertension Blood pressure is not within goal Home verapamil and ANGUS inhibitor continued . As needed hydralazine ordered. Trend blood pressure and adjust blood pressure medications. DVT prophylaxis Subcutaneous Lovenox ordered. Charges/Coding Visit Charges Inpatient E&M: 95111 Init Hosp L3
--- NOTE | 2021-05-31 22:56 | EKG12_ITS ---
Test Reason : PRE OP Blood Pressure : / mmHG Vent. Rate : 085 BPM Atrial Rate : 085 BPM P-R Int : 168 ms QRS Dur : 074 ms QT Int : 358 ms P-R-T Axes : 065 035 059 degrees QTc Int : 426 ms Normal sinus rhythm Nonspecific ST and T wave abnormality Abnormal ECG Confirmed by ABBEY BURK, NELLY ([id number]), features editor NEHEMIAH TORRES ([id number]) on 06/02/2021 9:35:58 AM Referred By: NATHALIA Confirmed By:NELLY POTTER MD
[2021-05-31 22:58] LABS: Magnesium 1.6 mg/dL (1.6-2.6)
[2021-05-31] MEDS: morphine 10 MG/ML Syringe 8 MG IV (23:48)
[2021-05-31 23:50] VITALS: BP 136/75; PULSE 91; RESP 15; TEMP 36.6; O2SAT 98
[2021-06-01] VITALS (19 sets, daily range): BP systolic 130–165; BP diastolic 71–92; PULSE 74–100; RESP 14–21; TEMP 36.4–37.2; O2SAT 89–98; BMI 36.4; BMI 36.6
[2021-06-01] MEDS: Ondansetron 4 MG/2 ML Vial IV ×2 (00:17→20:24)
[2021-06-01] MEDS: Lactated Ringers 1,000 ML 75 ML IV ×3 (01:24→23:28)
--- NOTE | 2021-06-01 01:27 | NURSING ---
pt unable to tolerate head of bed being raised due to pain. pt attempted to swallow a drink of water and unable to tolerate drink of water refused pills at this time.
[2021-06-01] MEDS: Potassium Chloride 10mEq/100mL 10 MEQ/100 ML IV.SOLN. 100 MEQ IV BOLUS ×4 (01:33→04:36)
[2021-06-01] MEDS: Morphine 2 MG/ML Syringe IV ×3 (04:41→19:57)
--- NOTE | 2021-06-01 05:55 | EKG12_ITS ---
Test Reason : PRE-OP Blood Pressure : / mmHG Vent. Rate : 082 BPM Atrial Rate : 082 BPM P-R Int : 172 ms QRS Dur : 086 ms QT Int : 366 ms P-R-T Axes : 058 008 038 degrees QTc Int : 427 ms Normal sinus rhythm Normal ECG When compared with ECG of 31-MAY-2021 23:45, MANUAL COMPARISON REQUIRED, DATA IS UNCONFIRMED Confirmed by ABBEY BURK, NELLY ([id number]), market editor NEHEMIAH TORRES ([id number]) on 06/02/2021 10:03:01 AM Referred By: TAMRA Confirmed By:NELLY POTTER MD
[2021-06-01 07:14] LABS: Absolute Lymphocyte Count 1.17 X10^3/uL (0.83-4.51); Absolute Neutrophil Count 7.9 X10^3/uL (2.0-7.7); Basophil# 0.03 X10^3/uL; Basophil% 0.3 % (0-1); Hematocrit 35.9 % (37-47); Hemoglobin 12.1 g/dL (12.0-15.0); Lymphocyte # 1.17 X10^3/ul (0.83-4.51); Lymphocyte % 12.1 % (19-41); Mean Corp Hgb Conc 33.7 g/dL (32-36); Mean Platelet Vol. 9.4 fl (6.2-12.0); Monocyte# 0.59 X10^3/uL; Monocyte% 6.1 % (0-10); NRBC Flagged by Analyzer 0 % (0-5); Neutrophil # 7.85 X10^3/uL (2.7-7.7); Neutrophil % 81.1 % (47-70); Platelet Count 265 K/mm3 (150-450); RBC Distribution Width CV 12.4 % (11.6-14.6); RBC Distribution Width SD 43.4 fl (35.1-43.9); Red Blood Count 3.78 M/mm3 (4.2-5.4); White Blood Count 9.7 K/mm3 (4.4-11.0)
[2021-06-01 07:32] LABS: Anion Gap 5 (5-15); BUN 11 mg/dL (7-18); Calcium,Total 9.2 mg/dL (8.5-10.1); Chloride 105 mmol/L (98-107); Creatinine, Serum 0.61 mg/dL (0.55-1.02); EST Glomerular Filtration Rate 107 mL/min (>60); Est Glom Filt Rate - Afr Amer 129 mL/min (>60); Estimated Creatinine Clearance 90.46 ml/min; Glucose 122 mg/dL (74-106); Potassium 4.4 mmol/L (3.5-5.1); Sodium Level 136 mmol/L (136-145)
--- NOTE | 2021-06-01 08:09 | PN.HOSP_ITS ---
Subjective Subjective Patient is a 56-year-old lady who presented with a fall after she tripped while her dog. Imaging studies demonstrated comminuted fracture of the left intertrochanteric region and proximal one third of the femoral shaft. Immobilized and admitted to regular nursing floor with consultation placed orthopedic surgery Objective Data Objective Data Vital Signs: Vital Signs Temp Pulse Resp BP Pulse Ox 97.9 F 91 18 157/92 H 94 06/01/21 05:37 06/01/21 05:37 06/01/21 05:37 06/01/21 05:37 06/01/21 05:37 Oxygen Delivery Method Room Air Weight: 99.3 kg Body Mass Index (BMI) 36.4 Intake & Output: Intake and Output for Last 24 Hours 05/30/21 05/31/21 06/01/21 23:59 23:59 23:59 Intake Total 378.33 / 378.33 Output Total 375 / 375 Balance 3.33 / 3.33 Lab / Micro Data Result Diagrams: 06/01/21 06:40 06/01/21 06:40 Labs: Laboratory Results - last 24 hr 05/31/21 21:15: WBC 9.9, RBC 4.22, Hgb 13.2, Hct 39.6, MCV 93.8, MCH 31.3, MCHC 33.3, RDW Std Deviation 42.0, RDW Coeff of Kecia 12.1, Plt Count 288, MPV 9.5 05/31/21 21:15: Sodium 141, Potassium 2.9 L, Chloride 110 H, Carbon Dioxide 23.0, Anion Gap 8, BUN 12, Creatinine 0.60, Estim Creat Clear Calc 91.97, Est GFR (MDRD) Af Amer 133, Est GFR (MDRD) Non-Af 110, BUN/Creatinine Ratio 20.2 H, Glucose 105, Calcium 8.3 L 05/31/21 21:15: Blood Type AB POSITIVE, Antibody Screen NEGATIVE 05/31/21 21:15: Magnesium 1.6 06/01/21 06:40: WBC 9.7, RBC 3.78 L, Hgb 12.1, Hct 35.9 L, MCV 95.0, MCH 32.0, MCHC 33.7, RDW Std Deviation 43.4, RDW Coeff of Kecia 12.4, Plt Count 265, MPV 9.4, Immature Gran % (Auto) 0.400, Neut % (Auto) 81.1 H, Lymph % (Auto) 12.1 L, [place] % (Auto) 6.1, Eos % (Auto) 0.0, Baso % (Auto) 0.3, Absolute Neuts (auto) 7.9 H, Absolute Lymphs (auto) 1.17, Nucleated RBC % 0 06/01/21 06:40: Sodium 136, Potassium 4.4, Chloride 105, Carbon Dioxide 26.0, Anion Gap 5, BUN 11, Creatinine 0.61, Estim Creat Clear Calc 90.46, Est GFR (MDRD) Af Amer 129, Est GFR (MDRD) Non-Af 107, BUN/Creatinine Ratio 18.0, Glucose 122 H, Calcium 9.2 Micro: Microbiology 05/31/21 23:51 Nasal Secretion SARS-CoV-2 Antigen (Rapid) - Final Radiography Diagnostic Testing: Radiology Impression Femur X-Ray 05/31/21 21:11 IMPRESSION: 1. An acute comminuted fracture of the left intertrochanteric region and proximal one third femoral shaft is present with foreshortening and mild displacement. Electronically Signed: Adrian Mobley MD at 22:47 EST , Service support , Knee X-Ray 05/31/21 21:11 IMPRESSION: Normal x-ray examination of the knee. Electronically Signed: Adrian Mobley MD at 22:44 EST , Service support , Pelvis X-Ray 05/31/21 21:11 IMPRESSION: 1. An acute comminuted fracture of the left intertrochanteric region and proximal one third femoral shaft is present with foreshortening and mild displacement. Electronically Signed: Adrian Mobley MD at 22:46 EST , Service support , Chest X-Ray 05/31/21 21:55 IMPRESSION: Degenerative changes, as described above. No demonstrated acute cardiopulmonary process. Electronically Signed: Adrian Mobley MD at 22:46 EST , Service support , Physical Exam Narrative GENERAL: cooperative HEENT: Atraumatic; EYES; Anicteric, Normal Conjunctiva NECK; supple, normal thyroid, RESPIRATORY: Diminished to auscultation CARDIOVASCULAR: Regular S1 S2, GI: soft, normoactive bowel sounds, : No Renal angle tenderness; EXTREMITIES: No edema, no clubbing, MUSCULOSKELETAL: Lower extremity immobilized NEURO: Awake; no lateralizing signs. SKIN: No Rash PSYCH; Flat affect Assessment & Plan Assessment/Plan (1) Closed left hip fracture: QUALIFIERS: Encounter type: initial encounter Qualified Code(s): S72.002A - Fracture of unspecified part of neck of left femur, initial encounter for closed fracture (2) Fall: QUALIFIERS: Encounter type: initial encounter Qualified Code(s): W19.XXXA - Unspecified fall, initial encounter PLAN: Patient is a 56-year-old lady who presented with a fall after she tripped while her dog. Imaging studies demonstrated comminuted fracture of the left intertrochanteric region and proximal one third of the femoral shaft. Immobilized and admitted to regular nursing floor with consultation placed orthopedic surgery 1. Acute comminuted fracture of the left intertrochanteric region and proximal one third femoral shaft. -Admitted to regular nursing floor. Managed with pain meds immobilization with consultation placed to orthopedic surgery?Dr. Dorado. Decision regarding surgical intervention deferred to orthopedic surgery. Patient patient surgical risk rating regards to intra and perioperative morbidity/mortality as documented by admitting physician 2. Hypokalemia -Corrected per protocol, with subsequent BMP ordered for monitoring 3. Hypertension - Blood pressure controlled, home medications continued with dose adjustment as needed 4. Class III obesity with BMI of 36.4 ?Patient counseled on cessation 5. Depression ?Patient is on fluoxetine did continue 6. DVT prophylaxis ?Do plan to initiate chemoprophylaxis following patient surgical procedure Charges/Coding Visit Charges Inpatient E&M: 73427 Subs Hosp L3
[2021-06-01 08:41] LABS: Vitamin D,25 Hydroxy 21.4 ng/mL
[2021-06-01] MEDS: Verapamil SR 180 MG CAPSULE PO (09:37)
[2021-06-01] MEDS: Lisinopril 20 MG Tablet PO (09:40)
--- NOTE | 2021-06-01 11:20 | CASEMGMT ---
[employer] CM to room to meet with patient for initial transition planning/care coordination assessment. [place] introduced self and role at [facility]. Pt voices understanding and consents to assessment at this time. Pt resting in bed in no distress at this time. Significant other, Fadi Benson, @ bedside. Pt is A/O at this time and answers all questions appropriately. Care providers, pharmacy, and demographics verified/updated at this time. PCP: Dr Ryan Stone Specialists:Dr Barbour-psychiatrist Preferred Pharmacy: [facility] in [place] Insurance: [employer] Prescription Benefit: Yes Living Will/HPOA: Pt does not currently have LW/HCPOA and would like to talk w/SW to complete. SW, Annie, made aware. Pt states she would like Fadi to be her HPOA. [place]: Significant other, Fadi. Parents are , she has not siblings and no children. Dee Dee/1st cousin in [place]. Living Arrangements: Lives w/Fadi in 2-story home w/2-3 steps to enter. Bedroom and full bath on 2nd floor. Partial bath on main floor. Was independent prior to fall and fx. Transportation: Pt and Fadi DME: Does not use or have any DME. She used to have a CPAP, but was non-compliant w/it and does not have it anymore. HHC/SNF: No hx of either. Discussed options of SNF and HHC @ d/c. Pt states she is not sure yet. She would like to talk w/Fadi about it and see how she does after surgery. PLAN: TBD by course of treatment and progress w/therapy. Pt going to surgery today. PT/OT evals pending. Alice ADAMESN [place]
--- NOTE | 2021-06-01 11:56 | CASEMGMT ---
Social Work As per CM, pt may need to go somewhere for rehab, and she would also like to complete Healthcare POA prior to surgery. SW brought pt a list of [facility] facilities in pt's preferred geographic area, that take's pt's insurance, complete with quality and resource use data. SW explained we can see how it goes with therapy tomorrow to see if she is able to return home or will need rehab in a [facility] facility. SW then assisted pt in completing POA for Healthcare. SW also offered support as pt tearful. SW gave pt original and copy of POA form, and copy placed in chart. Pt put significant other Fadi as Healthcare POA. SW will follow up tomorrow. MELISSA Adams
--- NOTE | 2021-06-01 14:00 | RAD_ITS ---
STUDY: INTRAOPERATIVE FLUOROSCOPY TECHNIQUE: The examination was performed with referring physician in attendance. Under fluoroscopic observation, fluoroscopic images were obtained. Radiologist was not present for the study. Radiologist did not perform the procedure. This dictation is for documentation of the radiation dosage only. There is no interpretation of the images. TOTAL NUMBER OF IMAGES: 1 COMPARISON: None RADIATION DOSE: 83 mGy FLUOROSCOPY TIME: 315 seconds REASON FOR EXAM: ORIF, FX left hip Female, 56 years old. FINDINGS: There is metallic hardware noted in the left hip. RAD/Hip 1 view with Pelvis IMPRESSION: Fluoroscopic assistance images were obtained. Dictation for documentation purposes only. Electronically Signed: Salvador Gonzalez MD at 19:01 EST , Service support ,
[2021-06-01] MEDS: Cefazolin 2 GM in 0.9% Normal Saline 100 ML IV (16:09)
--- NOTE | 2021-06-01 16:45 | NURSING ---
This RN received report at this time, pt in surgery not on floor at this time. This RN will be taking over care when pt returns to floor.
--- NOTE | 2021-06-01 18:12 | PCM.CONS.GEN ---
Assessment & Plan Assessment/Plan (1) Closed left hip fracture: QUALIFIERS: Encounter type: initial encounter Qualified Code(s): S72.002A - Fracture of unspecified part of neck of left femur, initial encounter for closed fracture PLAN: Her diagnosis and treatment options regarding her comminuted subtrochanteric left femoral fracture discussed with her and her at length. Surgery was recommended. She did wish to proceed with left hip open reduction internal fixation, long gamma nailing. She understood she may need cerclage wiring. She understood she may need more formal incisions than typical. Risk of surgery including but not limited to from operative or postoperative complications. Risk of anesthetic complications such as heart attacks, strokes, seizures, or . Risk of infections. Risk of damage to nerves arteries tendons. Risk of inadvertent fractures or dislocations. Risk of bone or wound healing complications. Possibility of nonunion malunion pain stiffness weakness. Possible need for further surgery such as hardware removal. Risk of DVT PE and other potential complications could lead to or disability explained. No guarantees were stated or implied. All of their questions were answered. Appropriate informed consent was obtained and signed for surgical intervention. Patient understood increased risk associated with COVID-19 pandemic. Ancef chosen for perioperative antibiotic. We will use aspirin 81 mg twice a day for DVT prevention. She can be 25% weightbearing on her left hip with a walker or crutches. Multiple medical comorbidities including hypertension, sleep apnea, obesity, history of osteopenia, further evaluation and treatment per hospitalist service and/or primary care physician This note was generated with setObject dictation software. It may contain incorrect words, spelling, and punctuation that were not noted in checking the note before signing. HPI Consult Data Date of Consult: 06/01/21 HPI Narrative HPI Narrative: BLAINE CHIN, is a 56 F who presents after falling yesterday sustaining a left hip fracture. She was at home and tripped over her dog. She was brought to [facility]. Orthopedics was consulted. She was admitted to the medical service. Patient denies any pre-existing left hip pain. She did have intermittent right hip pain preoperatively. She has never needed a cane or walker. She denies any history of cancer or any known bone disease. She has been diagnosed with osteopenia previously. She has not had a bone density test in many years. Denies head injury or loss of consciousness. [facility] Medical History (Updated 06/01/21 @ 01:08 by Patrick Chan) Alcohol use Anxiety CPAP (continuous positive airway pressure) dependence Depression Easy bruising Heartburn Hepatitis History of edema History of stress test Hx of cardiovascular stress test Hx of echocardiogram Hypertension Injury of back Post-menopausal Smoker Wears glasses Home Medications trazodone 50 mg PO QHS PRN 12/23/15 [History Last Taken 05/31/21] aripiprazole 5 mg PO DAILY 09/05/20 [History Last Taken 05/31/21] fluoxetine 10 mg PO DAILY 09/05/20 [History Last Taken 05/31/21] methylphenidate HCl 17.25 mg PO DAILY 05/31/21 [History Last Taken 05/31/21] quinapril 20 mg PO DAILY 05/31/21 [History Last Taken 05/31/21] verapamil 180 mg PO DAILY 05/31/21 [History Last Taken 05/31/21] Allergy/AdvReac Type Severity Reaction Status Date / Time esomeprazole magnesium Allergy Other Verified 05/31/21 20:47 [From Nexium] codeine AdvReac Nausea Verified 05/31/21 20:47 fentanyl AdvReac Nausea Verified 05/31/21 20:47 Surgical History History of cervical polypectomy History of hysteroscopy Social History Smoking Status: Current every day smoker tobacco type: e-cigarettes ROS ROS Narrative Denies any recent problems with eyes ears nose or throat heart or lungs bowel or bladder. She does admit to some previous right hip pain. She does admit to vaping. Physical Exam Narrative Patient is lying comfortably in her hospital bed. Seen with her present. Left lower extremity is shortened and externally rotated. Left hip has pain on palpation. No pain at the left knee calf foot or ankle. She can plantarflex and dorsiflex toes and ankle. She had no calf pain or swelling on the right. Negative Homans' sign bilaterally. Distal pulses and sensation are intact. Skin is intact about the left hip. X-rays AP pelvis AP and lateral of left hip shows a comminuted subtrochanteric left hip fracture with displacement and angulation. No obvious apparent right hip fracture. No obvious apparent pre-existing lesions or signs of pathologic fracture. Lab / Micro Data Result Diagrams: 06/01/21 06:40 06/01/21 06:40 Labs: Laboratory Results - last 24 hr 05/31/21 21:15: WBC 9.9, RBC 4.22, Hgb 13.2, Hct 39.6, MCV 93.8, MCH 31.3, MCHC 33.3, RDW Std Deviation 42.0, RDW Coeff of Kecia 12.1, Plt Count 288, MPV 9.5 05/31/21 21:15: Sodium 141, Potassium 2.9 L, Chloride 110 H, Carbon Dioxide 23.0, Anion Gap 8, BUN 12, Creatinine 0.60, Estim Creat Clear Calc 91.97, Est GFR (MDRD) Af Amer 133, Est GFR (MDRD) Non-Af 110, BUN/Creatinine Ratio 20.2 H, Glucose 105, Calcium 8.3 L 05/31/21 21:15: Blood Type AB POSITIVE, Antibody Screen NEGATIVE 05/31/21 21:15: Magnesium 1.6 06/01/21 06:40: WBC 9.7, RBC 3.78 L, Hgb 12.1, Hct 35.9 L, MCV 95.0, MCH 32.0, MCHC 33.7, RDW Std Deviation 43.4, RDW Coeff of Kecia 12.4, Plt Count 265, MPV 9.4, Immature Gran % (Auto) 0.400, Neut % (Auto) 81.1 H, Lymph % (Auto) 12.1 L, [place] % (Auto) 6.1, Eos % (Auto) 0.0, Baso % (Auto) 0.3, Absolute Neuts (auto) 7.9 H, Absolute Lymphs (auto) 1.17, Nucleated RBC % 0 06/01/21 06:40: Sodium 136, Potassium 4.4, Chloride 105, Carbon Dioxide 26.0, Anion Gap 5, BUN 11, Creatinine 0.61, Estim Creat Clear Calc 90.46, Est GFR (MDRD) Af Amer 129, Est GFR (MDRD) Non-Af 107, BUN/Creatinine Ratio 18.0, Glucose 122 H, Calcium 9.2 06/01/21 06:40: Vitamin D 25-Hydroxy 21.4 Micro: Microbiology 05/31/21 23:51 Nasal Secretion SARS-CoV-2 Antigen (Rapid) - Final Radiology Impression Femur X-Ray 05/31/21 21:11 IMPRESSION: 1. An acute comminuted fracture of the left intertrochanteric region and proximal one third femoral shaft is present with foreshortening and mild displacement. Electronically Signed: Adrian Mobley MD at 22:47 EST , Service support , Knee X-Ray 05/31/21 21:11 IMPRESSION: Normal x-ray examination of the knee. Electronically Signed: Adrian Mobley MD at 22:44 EST , Service support , Pelvis X-Ray 05/31/21 21:11 IMPRESSION: 1. An acute comminuted fracture of the left intertrochanteric region and proximal one third femoral shaft is present with foreshortening and mild displacement. Electronically Signed: Adrian Mobley MD at 22:46 EST , Service support , Chest X-Ray 05/31/21 21:55 IMPRESSION: Degenerative changes, as described above. No demonstrated acute cardiopulmonary process. Electronically Signed: Adrian Mobley MD at 22:46 EST , Service support ,
--- NOTE | 2021-06-01 18:37 | OP.PCM_ITS ---
Problems Associated Problem List Diagnoses (1) Closed left hip fracture: Operative Report Date of Procedure: 06/01/21 Preoperative diagnosis: Left hip displaced unstable subtrochanteric fracture Postoperative diagnosis: Same Title of operation: Left hip open reduction internal fixation, intramedullary nail fixation, locked Surgeon: Dr. Franky Dorado Brass Molder: Jaz Olivares PA-C Anesthesia: General Medications: Ancef 2 g Indications for surgery: Patient is an 56-year-old female sustained a left hip fracture yesterday at home. Patient and their family explained diagnosis and treatment options. Patient evaluated by the medical services. Patient did wish to have surgery. Appropriate informed consent obtained and signed. Findings: Patient had a displaced unstable subtrochanteric hip fracture. They underwent standard reduction, internal fixation using a Lesa long gamma nail. X-rays taken throughout. front end assistant, physician electrician's assistant, was utilized throughout the entire procedure. They were vital to the procedure from beginning to end. They help with patient transfer, patient padding and positioning, fracture reduction, maintenance of fracture reduction, internal fixation of implants, wound closure, bandage application, patient transfer. Without surgical services assistant, surgical time would have been significantly increased and surgical outcome could have been less optimal. Procedure: Patient was taken to the operating room. Placed under a general anesthetic and transferred to the operating table with the help of the electrician's assistant. With the help of the electrician's assistant patient was prepped and padded for surgery. Left foot was well-padded and placed in the traction boot. Right lower extremity was abducted and flexed out of harm's way. RAMU hose and SCDs utilized. Fluoroscopy was brought in. With the help of the electrician's assistant and manipulation of the limb, reduction was nicely obtained as verified under AP lateral and oblique fluoroscopic images. Reduction was improved with lateral to medial pressure on the fracture site. Left hip was prepped padded draped in usual orthopedic sterile fashion for the procedure. Longitudinal incision was made just proximal to the greater trochanter. Taken through skin and subcutaneous tissue. Sharp awl was placed on the tip of the greater trochanter. Position verified under AP and lateral fluoroscopic images. This was then taken down inside the bone. Slightly bent ball-tipped guide olayinka was then placed from the tip of the greater trochanter into the intra-medullary canal of the femur. Its position verified radiographically. Guide olayinka was verified to be just above the patella on the AP and lateral x-rays of the knee. We measured the length of the guide olayinka within the bone. Short reamer was then done over the tip of this with the help of the electrician's assistant holding the soft tissue protector appropriately. Long reaming was done starting with a 9 mm reamer and reaming up to 12.5 mm distally. Was then with the help of the electrician's assistant . once reaming was done we placed the short 125? angle device over the guidepin. This was easily introduced. Guide olayinka removed. Outrigger device was utilized to position a guidepin from the lateral cortex of the femur across the fracture site and into the femoral head in a good position centrally, as noted on AP lateral and oblique fluoroscopic images. This was measured. Appropriate reaming done. Appropriate length lag screw was placed from the lateral cortex of the femur into the femoral head. A small amount of the screw was noted to be protruding laterally as planned. No cartilage penetration of the femoral head noted on any x-ray. Fracture was then compressed with the outrigger device. Screw was placed seated down completely, confirmed, and then loosened one fourth turn. Fluoroscopy was utilized distally to verify the position of the olayinka on AP and lateral images. Lateral image was used to verify the holes within the olayinka. We placed a bit with the help of fluoroscopy through the slotted hole distally to allow for compression. We then measured and placed the appropriate length to cross locking screw through the slotted hole this was confirmed to be of adequate length in good position on AP and lateral images. Outrigger device removed. Final set of AP and lateral proximal and distal x-rays taken and saved. Incisions were thoroughly irrigated. Closing by the electrician's assistant with deep 0 Vicryl, mid layer 0 Vicryl, inverted 2-0 Vicryl, skin agustina. Puncture wounds closed with inverted 2-0 Vicryl and agustina. Xeroform 4 x 4's ABD tape applied. Patient was awoken from their anesthetic, transferred back to their [facility] with the help of the electrician's assistant and into recovery room in satisfactory condition. Patient will continue to be admitted to the hospital under the hospitalist service. Patient will be 25% weightbearing on her left lower extremity until radiographic and clinical healing is expected. We plan to use aspirin 81 mg twice a day for DVT prevention. This note was generated with BiOWiSHation software. It may contain incorrect words, spelling, and punctuation that were not noted in checking the note before signing.
[2021-06-01] MEDS: Acetaminophen 325 MG Tablet 650 MG PO (19:58)
[2021-06-01] MEDS: Cefazolin 1 GM/50 ML BAG IV (23:28)
[2021-06-02] VITALS (15 sets, daily range): BP systolic 112–143; BP diastolic 58–77; PULSE 76–85; RESP 12–16; TEMP 36.6–37.1; O2SAT 92–99
[2021-06-02] MEDS: Morphine 2 MG/ML Syringe IV ×2 (03:03→13:34)
[2021-06-02 06:26] LABS: Absolute Lymphocyte Count 0.55 X10^3/uL (0.83-4.51); Absolute Neutrophil Count 7.2 X10^3/uL (2.0-7.7); Hematocrit 31.3 % (37-47); Hemoglobin 10.3 g/dL (12.0-15.0); Lymphocyte # 0.55 X10^3/ul (0.83-4.51); Lymphocyte % 6.6 % (19-41); Mean Corp Hgb Conc 32.9 g/dL (32-36); Mean Corpuscular Hgb 31.6 pg (27.0-32.0); Mean Platelet Vol. 9.6 fl (6.2-12.0); NRBC Flagged by Analyzer 0 % (0-5); Neutrophil # 7.19 X10^3/uL (2.7-7.7); Neutrophil % 86.9 % (47-70); POSITIVE DIFFERENTIAL YES; Platelet Count 220 K/mm3 (150-450); RBC Distribution Width CV 12.2 % (11.6-14.6); RBC Distribution Width SD 42.6 fl (35.1-43.9); Red Blood Count 3.26 M/mm3 (4.2-5.4); White Blood Count 8.3 K/mm3 (4.4-11.0)
[2021-06-02 06:38] LABS: Differential Indicated SCAN CRITERIA MET
[2021-06-02 06:55] LABS: Anion Gap 5 (5-15); BUN 8 mg/dL (7-18); Calcium,Total 8.9 mg/dL (8.5-10.1); Chloride 107 mmol/L (98-107); Creatinine, Serum 0.57 mg/dL (0.55-1.02); EST Glomerular Filtration Rate 116 mL/min (>60); Est Glom Filt Rate - Afr Amer 140 mL/min (>60); Estimated Creatinine Clearance 96.81 ml/min; Glucose 145 mg/dL (74-106); Magnesium 2.1 mg/dL (1.6-2.6); Potassium 4.2 mmol/L (3.5-5.1); Sodium Level 138 mmol/L (136-145)
--- NOTE | 2021-06-02 07:35 | PCM.PN.ORT ---
Subjective Subjective Patient is postoperative day #1 from left hip open reduction internal fixation. Pain is much better than before surgery. Pain is currently 1 or 2 out of 10. She is much more comfortable moving around in bed. Denies chest pain or shortness of breath. Denies productive cough. Hoping for discharge to home soon. Objective Data Objective Data Vital Signs: Vital Signs Temp Pulse Resp BP Pulse Ox 98.4 F 79 14 120/63 94 06/02/21 04:00 06/02/21 04:21 06/02/21 04:00 06/02/21 04:00 06/02/21 04:00 Oxygen Flow Rate (L/min) 1 Oxygen Delivery Method Room Air Weight: 99.932 kg Body Mass Index (BMI) 36.6 Intake & Output: Intake and Output for Last 24 Hours 05/31/21 06/01/21 06/02/21 23:59 23:59 23:59 Intake Total 2252.08 / 2372.08 170 / 170 Output Total 1425 / 2225 1150 / 1150 Balance 827.08 / 147.08 -980 / -980 Lab / Micro Data Result Diagrams: 06/02/21 05:37 06/02/21 05:37 Labs: Laboratory Results - last 24 hr 06/01/21 06:40: Vitamin D 25-Hydroxy 21.4 06/02/21 05:37: WBC 8.3, RBC 3.26 L, Hgb 10.3 L, Hct 31.3 L, MCV 96.0, MCH 31.6, MCHC 32.9, RDW Std Deviation 42.6, RDW Coeff of Kecia 12.2, Plt Count 220, MPV 9.6, Immature Gran % (Auto) 0.500, Neut % (Auto) 86.9 H, Lymph % (Auto) 6.6 L, [place] % (Auto) 6.0, Eos % (Auto) 0.0, Baso % (Auto) 0.0, Absolute Neuts (auto) 7.2, Absolute Lymphs (auto) 0.55 L, Nucleated RBC % 0 06/02/21 05:37: Sodium 138, Potassium 4.2, Chloride 107, Carbon Dioxide 26.0, Anion Gap 5, BUN 8, Creatinine 0.57, Estim Creat Clear Calc 96.81, Est GFR (MDRD) Af Amer 140, Est GFR (MDRD) Non-Af 116, BUN/Creatinine Ratio 14.0, Glucose 145 H, Calcium 8.9, Magnesium 2.1 Micro: Microbiology 05/31/21 23:51 Nasal Secretion SARS-CoV-2 Antigen (Rapid) - Final Radiography Diagnostic Testing: Radiology Impression Hip/Pelvis X-Ray 06/01/21 14:00 IMPRESSION: Fluoroscopic assistance images were obtained. Dictation for documentation purposes only. Electronically Signed: Salvador Gonzalez MD at 19:01 EST , Service support , Physical Exam Narrative Left hip bandages are on clean and dry with no signs of drainage. Clinically leg lengths are equal. She has good active motion toes and ankles. No calf pain or swelling. Negative Homans' sign. Legs are neurovascular intact. No hip pain with axial loading. Very good passive motion of the hip without any significant pain Lab work and vital signs reviewed Assessment & Plan Assessment/Plan (1) Closed left hip fracture: QUALIFIERS: Encounter type: initial encounter Qualified Code(s): S72.002A - Fracture of unspecified part of neck of left femur, initial encounter for closed fracture PLAN: Her diagnosis and treatment options regarding her left hip fracture surgery discussed with her at length. She will continue on aspirin for DVT prevention 81 mg twice a day for 1 month. Continue with incentive spirometer use. Upright position. She would do ankle and foot exercises. She will be 25% weightbearing on her left hip. Importance of not using tobacco products again explained. Plan to see her in the office in 10 to 14 days for wound check, x-rays, evaluation. Blood loss anemia expected for surgical procedure. Asymptomatic. Orthopedic service will sign off. Can be notified
--- NOTE | 2021-06-02 07:52 | PN.HOSP_ITS ---
Subjective Subjective Patient underwent Left hip open reduction internal fixation, intramedullary nail fixation, locked by Dr. Franky Dorado on 06/01/2021. Seen this a.m. pain is tolerable. Case management consulted to assist with discharge planning Objective Data Objective Data Vital Signs: Vital Signs Temp Pulse Resp BP Pulse Ox 98.4 F 76 14 120/63 94 06/02/21 04:00 06/02/21 07:25 06/02/21 04:00 06/02/21 04:00 06/02/21 04:00 Oxygen Flow Rate (L/min) 1 Oxygen Delivery Method Room Air Weight: 99.932 kg Body Mass Index (BMI) 36.6 Intake & Output: Intake and Output for Last 24 Hours 05/31/21 06/01/21 06/02/21 23:59 23:59 23:59 Intake Total 2252.08 / 2372.08 170 / 170 Output Total 1425 / 2225 1150 / 1150 Balance 827.08 / 147.08 -980 / -980 Lab / Micro Data Result Diagrams: 06/02/21 05:37 06/02/21 05:37 Labs: Laboratory Results - last 24 hr 06/01/21 06:40: Vitamin D 25-Hydroxy 21.4 06/02/21 05:37: WBC 8.3, RBC 3.26 L, Hgb 10.3 L, Hct 31.3 L, MCV 96.0, MCH 31.6, MCHC 32.9, RDW Std Deviation 42.6, RDW Coeff of Kecia 12.2, Plt Count 220, MPV 9.6, Immature Gran % (Auto) 0.500, Neut % (Auto) 86.9 H, Lymph % (Auto) 6.6 L, [place] % (Auto) 6.0, Eos % (Auto) 0.0, Baso % (Auto) 0.0, Absolute Neuts (auto) 7.2, Absolute Lymphs (auto) 0.55 L, Nucleated RBC % 0 06/02/21 05:37: Sodium 138, Potassium 4.2, Chloride 107, Carbon Dioxide 26.0, Anion Gap 5, BUN 8, Creatinine 0.57, Estim Creat Clear Calc 96.81, Est GFR (MDRD) Af Amer 140, Est GFR (MDRD) Non-Af 116, BUN/Creatinine Ratio 14.0, Glucose 145 H, Calcium 8.9, Magnesium 2.1 Micro: Microbiology 05/31/21 23:51 Nasal Secretion SARS-CoV-2 Antigen (Rapid) - Final Radiography Diagnostic Testing: Radiology Impression Hip/Pelvis X-Ray 06/01/21 14:00 IMPRESSION: Fluoroscopic assistance images were obtained. Dictation for documentation purposes only. Electronically Signed: Salvador Gonzalez MD at 19:01 EST , Service support , Physical Exam Narrative GENERAL: cooperative HEENT: Atraumatic; EYES; Anicteric, Normal Conjunctiva NECK; supple, normal thyroid, RESPIRATORY: Diminished to auscultation CARDIOVASCULAR: Regular S1 S2, GI: soft, normoactive bowel sounds, : No Renal angle tenderness; EXTREMITIES: No edema, no clubbing, MUSCULOSKELETAL: Lower extremity immobilized NEURO: Awake; no lateralizing signs. SKIN: No Rash PSYCH; Flat affect Assessment & Plan Assessment/Plan (1) Closed left hip fracture: QUALIFIERS: Encounter type: initial encounter Qualified Code(s): S72.002A - Fracture of unspecified part of neck of left femur, initial encounter for closed fracture (2) Fall: QUALIFIERS: Encounter type: initial encounter Qualified Code(s): W19.XXXA - Unspecified fall, initial encounter PLAN: Patient is a 56-year-old lady who presented with a fall after she tripped while her dog. Imaging studies demonstrated comminuted fracture of the left intertrochanteric region and proximal one third of the femoral shaft. Immobilized and admitted to regular nursing floor with consultation placed orthopedic surgery 1. Acute comminuted fracture of the left intertrochanteric region and proximal one third femoral shaft. -Admitted to regular nursing floor. Managed with pain meds immobilization with consultation placed to orthopedic surgery?Dr. Dorado. Decision regarding surgical intervention deferred to orthopedic surgery. Patient patient surgical risk rating regards to intra and perioperative morbidity/mortality as documented by admitting physician -06/02/2021 patient underwent Left hip open reduction internal fixation, intram edullary nail fixation, locked by Dr. Franky Dorado on 06/01/2021. Seen this a.m. pain is tolerable. Case management consulted to assist with discharge planning 2. Hypokalemia -Corrected per protocol, with subsequent BMP ordered for monitoring 3. Hypertension - Blood pressure controlled, home medications continued with dose adjustment as needed 4. Class III obesity with BMI of 36.4 ?Patient counseled on cessation 5. Depression ?Patient is on fluoxetine did continue 6. DVT prophylaxis ?Aspirin 81 mg p.o. twice daily as ordered by orthopedic surgery. Preference with IV Lovenox however patient has underlying history of postmenopausal bleeding excluding the Lovenox 7. Anemia - Secondary to chronic disorder monitoring H&H and transfuse if patient becomes symptomatic or hemoglobin falls below 7. Patient started on iron supplement Charges/Coding Visit Charges Inpatient E&M: 97868 Subs Hosp L3
[2021-06-02] MEDS: FLUoxetine 10 MG Capsule PO (08:50)
[2021-06-02] MEDS: Aspirin 81 MG TAB.CHEW PO ×2 (08:50→16:06)
[2021-06-02] MEDS: ARIPiprazole 5 MG Tablet PO (08:50)
[2021-06-02] MEDS: Cefazolin 1 GM/50 ML BAG IV (08:50)
[2021-06-02] MEDS: oxyCODONE 5 MG Tablet PO ×3 (11:33→21:56)
[2021-06-02] MEDS: Lactated Ringers 1,000 ML 75 ML IV (13:04)
--- NOTE | 2021-06-02 14:40 | CASEMGMT ---
Addendum entered by Izabela Cowan 06/02/21 15:01: SW provided patient with a list of HH providers including quality and resource use data and consistent with the patient?s preferred geographic region, medical needs, and insurance network. SW let patient know the agencies highlighted in pink are the ones that take her insurance. Izabela RESTREPO Original Note: SW reviewed PT/OT and patient did not do well. SW met with patient. Introduced self and role at [facility]. SW explained that most of the time hip fractures are not able to go home right away. Patient said she is aware. SW then went to give patient a list of SNF providers including quality and resource use data and consistent with the patient?s preferred geographic region, medical needs, and insurance network. Patient said she is going home. Patient said her boyfriend is going to move her bed downstairs for her. SW explained to patient that she will likely be discharged tomorrow. Patient verbalized understanding. Patient would like home health. SW told her we will get her a list of home health agencies that take her insurance. Izabela RESTREPO
--- NOTE | 2021-06-02 20:07 | PCS.PANDOC ---
PANDEMIC DOCUMENTATION INITIATED: Date: 12/22/2020 Time: 190
[2021-06-02] MEDS: Lisinopril 20 MG Tablet PO (21:56)
[2021-06-02] MEDS: Verapamil SR 180 MG CAPSULE PO (21:56)
[2021-06-03] MEDS: Lactated Ringers 1,000 ML 75 ML IV (01:16)
[2021-06-03 03:24] VITALS: PULSE 70
[2021-06-03 04:51] LABS: Absolute Lymphocyte Count 1.96 X10^3/uL (0.83-4.51); Basophil# 0.02 X10^3/uL; Basophil% 0.3 % (0-1); Eosinophil# 0.02 X10^3/uL; Eosinophils% 0.3 % (0-5); Hematocrit 28.6 % (37-47); Hemoglobin 9.2 g/dL (12.0-15.0); Lymphocyte # 1.96 X10^3/ul (0.83-4.51); Lymphocyte % 25.5 % (19-41); Mean Corp Hgb Conc 32.2 g/dL (32-36); Mean Corpuscular Hgb 31.4 pg (27.0-32.0); Mean Corpuscular Volume 97.6 fL (81-99); Mean Platelet Vol. 9.2 fl (6.2-12.0); Monocyte# 0.67 X10^3/uL; Monocyte% 8.7 % (0-10); NRBC Flagged by Analyzer 0 % (0-5); Neutrophil # 4.99 X10^3/uL (2.7-7.7); Neutrophil % 64.7 % (47-70); Platelet Count 179 K/mm3 (150-450); RBC Distribution Width CV 12.3 % (11.6-14.6); Red Blood Count 2.93 M/mm3 (4.2-5.4); White Blood Count 7.7 K/mm3 (4.4-11.0)
[2021-06-03 05:00] VITALS: BP 131/68; PULSE 79; RESP 16; TEMP 36.7; O2SAT 97
[2021-06-03] MEDS: oxyCODONE 5 MG Tablet PO ×2 (05:12→09:24)
[2021-06-03 07:00] VITALS: PULSE 74
--- NOTE | 2021-06-03 07:29 | PCM.PN.HOSP ---
Subjective Subjective Since seen pain is tolerable. Patient is agreeable to going to a long-term facility/inpatient rehab to continue with her recuperation Objective Data Objective Data Vital Signs: Vital Signs Temp Pulse Resp BP Pulse Ox 98.1 F 79 16 131/68 H 97 06/03/21 05:00 06/03/21 05:00 06/03/21 05:00 06/03/21 05:00 06/03/21 05:00 Oxygen Flow Rate (L/min) 1 Oxygen Delivery Method Room Air Weight: 99.932 kg Body Mass Index (BMI) 36.6 Intake & Output: Intake and Output for Last 24 Hours 06/01/21 06/02/21 06/03/21 23:59 23:59 23:59 Intake Total 2252.08 / 2372.08 2228.75 / 2228.75 1155 / 1155 Output Total 1425 / 2225 1700 / 1700 800 / 800 Balance 827.08 / 147.08 528.75 / 528.75 355 / 355 Lab / Micro Data Result Diagrams: 06/03/21 04:37 06/03/21 04:37 Labs: Laboratory Results - last 24 hr 06/03/21 04:37: WBC 7.7, RBC 2.93 L, Hgb 9.2 L, Hct 28.6 L, MCV 97.6, MCH 31.4, MCHC 32.2, RDW Std Deviation 44.0 H, RDW Coeff of Kecia 12.3, Plt Count 179, MPV 9.2, Immature Gran % (Auto) 0.500, Neut % (Auto) 64.7, Lymph % (Auto) 25.5, Sharkey % (Auto) 8.7, Eos % (Auto) 0.3, Baso % (Auto) 0.3, Absolute Neuts (auto) 5.0, Absolute Lymphs (auto) 1.96, Nucleated RBC % 0 Micro: Microbiology 05/31/21 23:51 Nasal Secretion SARS-CoV-2 Antigen (Rapid) - Final Physical Exam Narrative GENERAL: cooperative HEENT: Atraumatic; EYES; Anicteric, Normal Conjunctiva NECK; supple, normal thyroid, RESPIRATORY: Diminished to auscultation CARDIOVASCULAR: Regular S1 S2, GI: soft, normoactive bowel sounds, : No Renal angle tenderness; EXTREMITIES: No edema, no clubbing, MUSCULOSKELETAL: Lower extremity immobilized NEURO: Awake; no lateralizing signs. SKIN: No Rash PSYCH; Flat affect Assessment & Plan Assessment/Plan (1) Closed left hip fracture: QUALIFIERS: Encounter type: initial encounter Qualified Code(s): S72.002A - Fracture of unspecified part of neck of left femur, initial encounter for closed fracture (2) Fall: QUALIFIERS: Encounter type: initial encounter Qualified Code(s): W19.XXXA - Unspecified fall, initial encounter PLAN: Patient is a 56-year-old lady who presented with a fall after she tripped while her dog. Imaging studies demonstrated comminuted fracture of the left intertrochanteric region and proximal one third of the femoral shaft. Immobilized and admitted to regular nursing floor with consultation placed orthopedic surgery 1. Acute comminuted fracture of the left intertrochanteric region and proximal one third femoral shaft. -Admitted to regular nursing floor. Managed with pain meds immobilization with consultation placed to orthopedic surgery?Dr. Dorado. Decision regarding surgical intervention deferred to orthopedic surgery. Patient patient surgical risk rating regards to intra and perioperative morbidity/mortality as documented by admitting physician -06/02/2021 patient underwent Left hip open reduction internal fixation, intramedullary nail fixation, locked by Dr. Franky Dorado on 06/01/2021. Seen this a.m. pain is tolerable. Case management consulted to assist with discharge planning -06/03/2021; Since seen pain is tolerable. Patient is agreeable to going to a long-term facility/inpatient rehab to continue with her recuperation 2. Hypokalemia -Corrected per protocol, with subsequent BMP ordered for monitoring 3. Hypertension - Blood pressure controlled, home medications continued with dose adjustment as needed 4. Class III obesity with BMI of 36.4 ?Patient counseled on cessation 5. Depression ?Patient is on fluoxetine did continue 6. DVT prophylaxis ?Aspirin 81 mg p.o. twice daily as ordered by orthopedic surgery. Preference with IV Lovenox however patient has underlying history of postmenopausal bleeding excluding the Lovenox 7. Anemia - Secondary to chronic disorder monitoring H&H and transfuse if patient becomes symptomatic or hemoglobin falls below 7. Patient started on iron supplement
[2021-06-03 07:33] LABS: Anion Gap 4 (5-15); BUN 10 mg/dL (7-18); BUN/Creat Ratio 21.3 RATIO (10-20); Calcium,Total 8.6 mg/dL (8.5-10.1); Chloride 108 mmol/L (98-107); Creatinine, Serum 0.47 mg/dL (0.55-1.02); EST Glomerular Filtration Rate 145 mL/min (>60); Est Glom Filt Rate - Afr Amer 175 mL/min (>60); Glucose 99 mg/dL (74-106); Potassium 3.7 mmol/L (3.5-5.1); Sodium Level 141 mmol/L (136-145)
[2021-06-03] MEDS: Aspirin 81 MG TAB.CHEW PO (07:55)
[2021-06-03] MEDS: Methylphenidate HCl 5 MG Tablet PO (07:55)
--- NOTE | 2021-06-03 09:12 | CASEMGMT ---
Per RN patient realizes she needs to go somewhere for rehab. HANNA met with patient. HANNA gave her a list yesterday. Patient agreed to [facility] or the Acute Rehab Uni. HANNA spoke with [facility] and she said they have beds both places. [facility] will try and get authorization for the Rehab Unit. HANNA was in patient's room when [facility] called. HANNA updated patient, physician, and RN. Plan: Acute Rehab Unit pending pre-cert. Izabela RESTREPO
[2021-06-03] MEDS: FLUoxetine 10 MG Capsule PO (09:23)
[2021-06-03] MEDS: ARIPiprazole 5 MG Tablet PO (09:23)
[2021-06-03] MEDS: Iron Polysaccharide Complex 150 MG CAPSULE PO (09:24)
[2021-06-03] MEDS: Senna/Docusate Sodium 1 Tablet 2 TABLET PO (09:24)
[2021-06-03 10:00] VITALS: BP 111/61; PULSE 92; RESP 16; TEMP 36.8; O2SAT 100
--- NOTE | 2021-06-03 11:32 | PCM.DC.SUM ---
Providers Date of Admission: 05/31/21 Primary Care Physician: Dr. Ryan Stone MD Consultations 06/01/21 00:43 Consult: Orthopedics Routine Consulting Provider: Franky Dorado Reason for Consult: Left hip fracture EMERGENT Consult: No MD Notified: Yes Date Notified: 05/31/21 Time Notified: 22:56 Method of Notification: Page Comments:: notified by ED Reason For Visit: LEFT HIP FRACTURE Diagnosis Discharge Diagnosis (1) Closed left hip fracture: Status: Acute Code(s): S72.002A - Fracture of unspecified part of neck of left femur, initial encounter for closed fracture Qualifiers: Encounter type: initial encounter Qualified Code(s): S72.002A - Fracture of unspecified part of neck of left femur, initial encounter for closed fracture (2) Fall: Status: Acute Code(s): W19.XXXA - Unspecified fall, initial encounter Qualifiers: Encounter type: initial encounter Qualified Code(s): W19.XXXA - Unspecified fall, initial encounter Medications at Discharge Home Medications trazodone 50 mg PO QHS PRN 12/23/15 aripiprazole 5 mg PO DAILY 09/05/20 fluoxetine 10 mg PO DAILY 09/05/20 methylphenidate HCl 17.25 mg PO DAILY 05/31/21 quinapril 20 mg PO DAILY 05/31/21 verapamil 180 mg PO DAILY 05/31/21 acetaminophen [Tylenol] 650 mg PO Q6H PRN PRN #0 tab 06/03/21 aspirin 81 mg PO BIDCM #0 tab 06/03/21 melatonin 3 mg PO QHS PRN PRN #0 tab 06/03/21 oxycodone 5 mg PO Q4H PRN PRN #0 tab 06/03/21 polysaccharide iron complex [Ferrex 150] 150 mg PO DAILY #0 cap 06/03/21 sennosides-docusate sodium [Stool Softener-Stimulant Laxat] 2 tab PO BID PRN PRN #0 tab 06/03/21 Hospital Course Summary of Care Provided Minutes Spent on Discharge: 40 Hospital Course: Patient is a 56-year-old lady who presented with a fall after she tripped while her dog. Imaging studies demonstrated comminuted fracture of the left intertrochanteric region and proximal one third of the femoral shaft. Immobilized and admitted to regular nursing floor with consultation placed orthopedic surgery 1. Acute comminuted fracture of the left intertrochanteric region and proximal one third femoral shaft. -Admitted to regular nursing floor. Managed with pain meds immobilization with consultation placed to orthopedic surgery?Dr. Dorado. Decision regarding surgical intervention deferred to orthopedic surgery. Patient patient surgical risk rating regards to intra and perioperative morbidity/mortality as documented by admitting physician -06/02/2021 patient underwent Left hip open reduction internal fixation, intramedullary nail fixation, locked by Dr. Franky Dorado on 06/01/2021. Seen this a.m. pain is tolerable. Case management consulted to assist with discharge planning -06/03/2021; Since seen pain is tolerable. Patient is agreeable to going to a fpc facility/inpatient rehab to continue with her recuperation -Transferred to the inpatient rehab unit once insurance precertification was obtained 2. Hypokalemia -Corrected per protocol, with subsequent BMP ordered for monitoring 3. Hypertension - Blood pressure controlled, home medications continued with dose adjustment as needed 4. Class III obesity with BMI of 36.4 ?Patient counseled on cessation 5. Depression ?Patient is on fluoxetine did continue 6. DVT prophylaxis ?Aspirin 81 mg p.o. twice daily as ordered by orthopedic surgery. Preference with IV Lovenox however patient has underlying history of postmenopausal bleeding excluding the Lovenox 7. Anemia - Secondary to chronic disorder monitoring H&H and transfuse if patient becomes symptomatic or hemoglobin falls below 7. Patient started on iron supplement Physical Exam Narrative GENERAL: cooperative HEENT: Atraumatic; EYES; Anicteric, Normal Conjunctiva NECK; supple, normal thyroid, RESPIRATORY: Diminished to auscultation CARDIOVASCULAR: Regular S1 S2, GI: soft, normoactive bowel sounds, : No Renal angle tenderness; EXTREMITIES: No edema, no clubbing, NEURO: Awake; no lateralizing signs. SKIN: No Rash PSYCH; Flat affect Weight / BMI Weight Weight: 99.932 kg Body Mass Index (BMI) 36.6 ABG / Lab / Microbiology Data Result Diagrams: 06/03/21 04:37 06/03/21 04:37 Laboratory: Laboratory Results - last 24 hr 06/03/21 04:37: WBC 7.7, RBC 2.93 L, Hgb 9.2 L, Hct 28.6 L, MCV 97.6, MCH 31.4, MCHC 32.2, RDW Std Deviation 44.0 H, RDW Coeff of Kecia 12.3, Plt Count 179, MPV 9.2, Immature Gran % (Auto) 0.500, Neut % (Auto) 64.7, Lymph % (Auto) 25.5, Victoria % (Auto) 8.7, Eos % (Auto) 0.3, Baso % (Auto) 0.3, Absolute Neuts (auto) 5.0, Absolute Lymphs (auto) 1.96, Nucleated RBC % 0 06/03/21 04:37: Sodium 141, Potassium 3.7, Chloride 108 H, Carbon Dioxide 29.0, Anion Gap 4 L, BUN 10, Creatinine 0.47 L, Estim Creat Clear Calc 117.40, Est GFR (MDRD) Af Amer 175, Est GFR (MDRD) Non-Af 145, BUN/Creatinine Ratio 21.3 H, Glucose 99, Calcium 8.6 Microbiology: Microbiology 05/31/21 23:51 Nasal Secretion SARS-CoV-2 Antigen (Rapid) - Final D/C Instructions Discharge Diet: No restrictions Discharge Activity: Return to Normal Activity Call your doctor if you observe: Fever of 101 or Higher, Shortness of breath, Fainting spells and Chest pain Meaningful Use Info Meaningful Use Diagnoses (Choose all that apply): None applicable Discharge Plan Admission Admit Date/Time: 05/31/21 22:26 Attending Provider: José Luis Ochoa Primary Care Provider: Ryan Stone Consulting Providers: Franky Dorado Discharge Orders/Prescriptions Prescriptions: New acetaminophen [Tylenol] 325 mg Tablet 650 mg PO Q6H PRN PRN (Reason: Pain Score 1-10/Temp > 100.7 F) Qty: 0 RF: 0 polysaccharide iron complex [Ferrex 150] 150 mg iron Capsule 150 mg PO DAILY Qty: 0 RF: 0 sennosides-docusate sodium [Stool Softener-Stimulant Laxat] 8.6-50 mg Tablet 2 tab PO BID PRN PRN (Reason: Constipation) Qty: 0 RF: 0 melatonin 3 mg Tablet 3 mg PO QHS PRN PRN (Reason: Insomnia) Qty: 0 RF: 0 aspirin 81 mg Tablet,Chewable 81 mg PO BIDCM Qty: 0 RF: 0 oxycodone 5 mg Tablet 5 mg PO Q4H PRN PRN (Reason: Pain Score 4-5) Qty: 0 RF: 0 Continued trazodone 50 MG tablet 50 mg PO QHS PRN (Reason: Sleep) RF: 0 fluoxetine 10 MG capsule 10 mg PO DAILY RF: 0 aripiprazole 5 MG tablet 5 mg PO DAILY RF: 0 verapamil 180 mg capsule,ext rel. pellets 24 hr 180 mg PO DAILY RF: 0 quinapril 20 mg tablet 20 mg PO DAILY RF: 0 methylphenidate HCl 18 mg tablet extended release 24hr 17.25 mg PO DAILY RF: 0 Referrals / Follow Up: Ryan Stone MD [Primary Care Provider] - Disposition Discharge Orders: Discharge Patient (Routine); Ordered 06/03/21 Ordered By: Dr. José Luis Ochoa Charges/Coding Visit Charges Inpatient E&M: 60969 Disch Hosp
--- NOTE | 2021-06-03 11:37 | CASEMGMT ---
Patient was approved to go to [facility] Inpatient Rehab Unit. SW notified patient and gave her a pamphlet. HANNA also notified physician, rim fire charger operator and executive legal secretary. Plan: d/c to [facility] 4th floor rehab unit. Izabela RESTREPO
[2021-06-03 13:28] VITALS: BP 111/61; PULSE 92; RESP 16; TEMP 36.8; O2SAT 100
== END 2021-06-03 13:49 | DRG 482 ==
LOC: ED 22:31 → MS2 23:51 → PCU 06-01 15:46
PROVIDERS: Orthopaedic Surgery; Admitting Provider Hospitalist; Emergency Provider Emergency Medicine; PCP Family Medicine; Visit Provider Internal Medicine
PROC: 0QS706Z Reposition Left Upper Femur with Intramedullary Internal Fixation Device, Open Approach (ICD-10-PCS; CPT 27245; principal; 2021-06-01 14:30)
DX: S72.142A Displaced intertrochanteric fracture of left femur, initial encounter for closed fracture (principal); Z68.36 Body mass index [BMI] 36.0-36.9, adult; D50.0 Iron deficiency anemia secondary to blood loss (chronic); E87.6 Hypokalemia; F17.290 Nicotine dependence, other tobacco product, uncomplicated; E66.9 Obesity, unspecified; W01.0XXA Fall on same level from slipping, tripping and stumbling without subsequent striking against object, initial encounter; I10 Essential (primary) hypertension; G47.33 Obstructive sleep apnea (adult) (pediatric); F41.9 Anxiety disorder, unspecified; F32.A Depression, unspecified; Z79.82 Long term (current) use of aspirin; Z23 Encounter for immunization; Z20.822 Contact with and (suspected) exposure to COVID-19; Z78.0 Asymptomatic menopausal state; Z79.899 Other long term (current) drug therapy; Z91.19 Patient's noncompliance with other medical treatment and regimen
CPT/HCPCS: 36415; 51702; 71045; 72170; 73501; 73552; 73560; 76000; 80048; 82306; 83735; 85025; 85027; 86850; 86900; 86901; 87426; 93005; 97110; 97116; 97162; 97166; 97530; 97535; 99251; 99285; 99406; C1713; J7120; 90686; A4216; G0463; J2405

== ENCOUNTER 2021-06-03 14:09 | Inpatient (IN) | payer OTHER, SELFPAY ==
[2021-06-03 14:16] VITALS: BMI 37.5
[2021-06-03 14:50] VITALS: BP 146/73; PULSE 90; RESP 18; TEMP 36.3; O2SAT 100
[2021-06-03] MEDS: oxyCODONE 5 MG Tablet PO ×2 (16:05→23:44)
[2021-06-03] MEDS: Aspirin 81 MG TAB.CHEW PO (18:25)
[2021-06-03 19:08] VITALS: O2SAT 98
[2021-06-03 19:45] VITALS: BP 148/77; PULSE 78; RESP 18; TEMP 36.7; O2SAT 92
[2021-06-04] MEDS: oxyCODONE 5 MG Tablet PO ×3 (05:48→20:00)
[2021-06-04 07:31] VITALS: BP 146/79; PULSE 94; RESP 18; TEMP 36.6; O2SAT 96
[2021-06-04] MEDS: Aspirin 81 MG TAB.CHEW PO ×2 (09:01→17:14)
[2021-06-04] MEDS: ARIPiprazole 5 MG Tablet PO (09:01)
[2021-06-04] MEDS: Iron Polysaccharide Complex 150 MG CAPSULE PO (09:01)
[2021-06-04] MEDS: Lisinopril 20 MG Tablet PO (09:02)
[2021-06-04] MEDS: Senna/Docusate Sodium 1 Tablet 2 TABLET PO ×2 (09:02→20:01)
[2021-06-04] MEDS: Methylphenidate HCl 5 MG Tablet PO (09:02)
[2021-06-04] MEDS: FLUoxetine 10 MG Capsule PO (09:02)
[2021-06-04] MEDS: Verapamil SR 180 MG CAPSULE PO (09:48)
--- NOTE | 2021-06-04 15:02 | PCM.HP.STD ---
HPI - General General Date of Admission: 06/03/21 HPI Narrative BLAINE CHIN, is a 56 YO F with a past medical history of hypertension, AKIRA (not compliant with CPAP), obesity, anxiety/depression, adult attention deficit disorder on Ritalin, GERD, tobacco dependence and history of HALL who had a fall at home and came to the ED at [facility] c/o pain in the left leg. XRAY in the ED showed an acute comminuted fracture of the left intertrochanteric region and proximal one third of the femoral shaft with foreshortening and mild displacement. X-rays of the pelvis and the left knee were normal. She was admitted to the hospital and consult was obtained with Dr. Franky Dorado. She ws taken to surgery on 06/01/21 for ORIF of the left hip with intramedullary nail fixation. Post operatively she was seen by PT/OT and they recommended acute rehab. She was transferred to the acute rehab floor of [facility] on 06/03/21 for 3 hours of therapy daily to restore function/independence at or near her level prior to the fracture. All lab from the hospital was reviewed and she has acute anemia, due to blood loss from the fracture and ORIF. Hemoglobin at admission to the hospital was 13.2 and on 06/03/2021 it is 9.2. Vitamin D is on the low side at 21.4 and would like to see it 30 or greater. [facility] Medical History (Updated 06/04/21 @ 16:[address] Kidnra Bryan, DO) Alcohol use Anxiety Attention deficit disorder CPAP (continuous positive airway pressure) dependence Depression Easy bruising GERD (gastroesophageal reflux disease) History of edema Hx of cardiovascular stress test Hx of echocardiogram Hypertension Injury of back HALL (nonalcoholic steatohepatitis) Obesity (BMI 35.0-39.9 without comorbidity) Osteopenia Post-menopausal Smoker Vitamin D insufficiency Wears glasses Home Medications trazodone 50 mg PO QHS PRN 12/23/15 [History Last Taken 05/31/21] aripiprazole 5 mg PO DAILY 09/05/20 [History Last Taken 05/31/21] fluoxetine 10 mg PO DAILY 09/05/20 [History Last Taken 05/31/21] methylphenidate HCl 17.25 mg PO DAILY 05/31/21 [History Last Taken 05/31/21] quinapril 20 mg PO DAILY 05/31/21 [History Last Taken 05/31/21] verapamil 180 mg PO DAILY 05/31/21 [History Last Taken 05/31/21] acetaminophen [Tylenol] 650 mg PO Q6H PRN PRN #0 tab 06/03/21 [Rx Last Taken Unknown] aspirin 81 mg PO BIDCM 06/03/21 [History Last Taken Unknown] melatonin 3 mg PO QHS PRN PRN #0 tab 06/03/21 [Rx Last Taken Unknown] oxycodone 5 mg PO Q4H PRN PRN 06/03/21 [History Last Taken Unknown] polysaccharide iron complex [Ferrex 150] 150 mg PO DAILY 06/03/21 [History Last Taken Unknown] sennosides-docusate sodium [Stool Softener-Stimulant Laxat] 2 tab PO BID 06/03/21 [History Last Taken Unknown] Allergy/AdvReac Type Severity Reaction Status Date / Time esomeprazole magnesium Allergy Other Verified 05/31/21 20:47 [From Nexium] codeine AdvReac Nausea Verified 05/31/21 20:47 fentanyl AdvReac Nausea Verified 05/31/21 20:47 Family History (Updated 06/04/21 @ 16:[address] Kindra Bryan DO) Mother , at 88 YOA She had both cervical CA and lung CA. She was a smoker. Cancer CAD (coronary artery disease) Father PVD (peripheral vascular disease) Family History no significant family his Surgical History (Updated 06/04/21 @ 16:[address] Kindra Bryan DO) History of cervical polypectomy History of hysteroscopy History of total abdominal hysterectomy and bilateral salpingo-oophorectomy Status post open reduction and internal fixation (ORIF) of fracture Social History (Updated 06/04/21 @ 16:[address] 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 [employer] pets and animals: Yes (small dog) Smoking Status: Current every day smoker tobacco type: e-cigarettes Tobacco: How many years used: 40 Electronic Cigarette Use: with nicotine how long ago did patient quit smoking: smoked up to 1 PPD until a few years ago when she started vaping quit status: considering quitting counseling given: provider counseling alcohol intake: current alcohol intake frequency: a few times a month substance use type: does not use ROS Constitutional Constitutional: Reports change in weight and other Details: had a weight gain after being started on Abilify and now she is trying to lose wt ; Denies anorexia, chills, fatigue, fever(s), night sweats or weakness Eyes Eyes: Denies blurry vision, change in vision, eye pain or loss of vision ENT HEENT: Denies abnormal hearing, dysphagia, headache(s), hearing loss, nasal congestion or sore throat Cardiovascular Cardiovascular: Reports leg edema; Denies chest pain, clubbing, cyanosis, dyspnea on exertion, lightheadedness, orthopnea, palpitations, paroxysmal nocturnal dyspnea or syncope Respiratory/Chest Respiratory/Chest: Denies cough, dyspnea, shortness of breath at rest, shortness of breath with exertion or wheezing Gastrointestinal Gastrointestinal: Denies abdominal pain, constipation, diarrhea, dyspepsia, hematemesis, hematochezia, nausea or vomiting Genitourinary Genitourinary: Denies dysuria, hematuria, nocturia, urinary frequency, urinary hesitancy, urinary incontinence or urinary urgency Musculoskeletal Musculoskeletal: Denies back pain, joint pain, joint swelling or neck pain Neurologic Neurologic: Denies confusion, disequilibrium, dizziness, focal weakness, headache(s), paresthesias, seizures or tremor(s) Psychiatric Psychiatric: Reports anxiety and depression; Denies homicidal ideation, suicidal ideation, suicidal thoughts or visual hallucinations Endocrine Endocrinology: Denies change in body appearance, polydipsia or polyuria Hematologic/Lymphatic Hematologic/Lymphatic: Reports easy bruising; Denies easy bleeding or lymphadenopathy Allergic/Immunologic Allergic/Immunologic: Denies rhinitis, eczemia or asthma Vital Signs Vital Signs Vital Signs: 06/03/21 19:08 06/03/21 19:45 06/03/21 22:15 Temperature 98.1 F Temperature Source Temporal Pulse Rate 78 Pulse Strength Normal (2+) Respiratory Rate 18 Blood Pressure 148/77 H Blood Pressure Mean 100 Blood Pressure Source Monitor Blood Pressure Position Semi-Fowlers Blood Pressure Location Right Arm Pulse Ox 98 92 Oxygen Delivery Method Room Air Room Air 06/04/21 07:31 Temperature 97.9 F Temperature Source Temporal Pulse Rate 94 Pulse Strength Respiratory Rate 18 Blood Pressure 146/79 H Blood Pressure Mean 101 Blood Pressure Source Monitor Blood Pressure Position Semi-Fowlers Blood Pressure Location Left Arm Pulse Ox 96 Oxygen Delivery Method Room Air Weight Weight: 225 lb 8.526 oz Body Mass Index (BMI) 37.5 Physical Exam Const alert, oriented x3 and no apparent distress Constitutional Narrative: Making good eye contact, appropriate General Appearance: cooperative, comfortable, well kempt and well developed HEENT normocephalic and hearing grossly normal bilaterally HEENT Narrative: MM are dry Throat: posterior oropharynx normal Eyes PERRL, EOMs intact bilaterally, conjunctivae normal and no scleral icterus General Eye: normal appearance of both eyes Neck no lymphadenopathy, supple, no JVD and no carotid bruits General: trachea midline Chest Chest: symmetrical chest wall rise Resp normal respiratory effort, normal air movement, no use of accessory muscles and clear to auscultation bilaterally Resp Narrative: Not tachypneic and no conversational dyspnea. Cardio regular rate, regular rhythm, S1 normal heart sound, S2 normal heart sound, no murmurs, no rub and no gallops GI normal to inspection, nondistended, normoactive bowel sounds and non-tender GI Narrative: No guarding with palpation. Extremity normal capillary refill Extremity Narrative: Negative Tyree's and Kely's signs. She has mild edema of the R ankle. She had an injury to the R ankle in the past and it has swollen ever since. She has no edema of the L ankle Peripheral Pulses: Yes pulses 2+ throughout Skin Skin Narrative: No rashes, no skin breakdown. Wound Narrative: The incision from the L hip ORIF is covered with a dressing that is not to be removed for another 4 days. There is no erythema around the bandage and the bandage is dry. Neuro oriented x3, CN's II-XII intact bilaterally, no focal motor deficits and no sensory deficits noted Motor Exam: strength 5/5 throughout Psych mental status grossly normal, thought process normal, affect normal, speech normal, activity/motor behavior normal, denies hallucinations, denies homicidal ideation and denies suicidal ideation Psych Narrative: Appropriate, making good eye contact. Able to stay on topic and focus. No flight of ideas. Does not appear anxious or depressed. Conversant and relating well to staff. Assessment & Plan Assessment/Plan (1) Physical debility: (2) Fall: QUALIFIERS: Encounter type: initial encounter Qualified Code(s): W19.XXXA - Unspecified fall, initial encounter (3) Closed left hip fracture: QUALIFIERS: Encounter type: initial encounter Qualified Code(s): S72.002A - Fracture of unspecified part of neck of left femur, initial encounter for closed fracture (4) Status post open reduction and internal fixation (ORIF) of fracture: (5) Acute blood loss anemia: (6) Acute post-operative pain: (7) Smoker: (8) Obesity (BMI 35.0-39.9 without comorbidity): (9) Attention deficit disorder: (10) Vitamin D insufficiency: (11) Anxiety: (12) HALL (nonalcoholic steatohepatitis): (13) Depression: PLAN: PLAN PT for gait stability OT for ADL's Analgesics as needed Bowel protocol Fall precautions Assess for Anxiety/Depression GI prophylaxis not necessary - will prescribe Mylanta for GERD PRN DVT prophylaxis with aspirin 81 mg p.o. twice daily per Dr. Dorado Follow up with Dr. Franky Dorado, Dr. Ryan Stone and psychiatry following DC from [facility] AM lab including CMP, CBC, Mag and Phos She had a sleep study 5 years ago and has not seen a beading machine operator. She can not tolerate the mask so she does not wear the CPAP. Has never tried more than the 1 mask. she has gained weight since being started on Abilify. I recommended she follow up with either Dr. Encarnacion or Dr. Jeffrey for a new sleep study and trial of differ masks/pillows to see if she can tolerate a different apparatus. She and I discussed that the attention deficit......which was only recently diagnosed, may be due to untreated AKIRA and chronic lack of REM sleep. She may not need Ritalin. She has RF's for CVD, HTN, smoking, FH, obesity and if she does not need a stimulant (henrry with chronic anxiety) it would be best for her not to be on Ritalin. Smoking cessation counselling was given. Unit Exclusion This patient is an acute care inpatient being housed in the excluded unit because of capacity issues related to the disaster or emergency.: Yes Charges/Coding Visit Charges Inpatient E&M: 29289 Init Hosp L2
--- NOTE | 2021-06-04 15:03 | CASEMGMT ---
Social Work Several attempts to complete initial assessment with pt, but pt unavailable. Will continue to attempt. Solange Rodriges, RESEARCH PROFESSOR OF BIOSTATISTICS CONSULTING SYSTEMS ENGINEER
[2021-06-04 15:11] VITALS: O2SAT 96
--- NOTE | 2021-06-04 16:36 | PCM.RU.PYE ---
Admission Information Primary Diagnosis:: Physical debility secondary to a fall resulting in left hip fracture. Status post ORIF with medullary nail fixation. Status Changes from Prescreening?: No changes Identified Actual Problem List:: Falls, Skin Intergrity, Pain, ALteration in Cmfrt, Depression, Bowel, Constipation, Mobility Impaired, Self Care Deficit and Alteration-Leisure Activ. Potential Problem List:: DVT, Bleeding, Infection, UTI, Aspiration, Falls, Skin Integrity and Depression Risk of Complications DVT: RAMU [place] and - (ASA 81 mg BID No personal or FH of VTE) Bleeding: Monitor Lab Values, Nursing to Teach Precautions for anti-coagulation therapy., Wound, if applicable, to be assessed every shift. and Stroke patients assessed for lethargy or change in status. Infection: Clinical Staff to Monitor for S/S of infection: and S/S of infection include fever, redness, warmth, etc. Urinary Tract Infection: Monitor for frequency, burning, discomfort, or incontinence. and Nursing will obtain urine sample for urinalysis and C&S when ordered. Aspiration: Clinical staff will monitor for coughing, drooling, congestion., Speech will evaluate swallowing and dsyphasia. and Nursing will monitor patient swallowing during meals. Falls: Patient will be evaluated for Fall Precautions and Patient will be placed on Fall Precautions as indicated per protocol. Skin Breakdown: Nursing will assess skin daily using assessment tool. and Nursing will place on Skin Breakdown Precautions as indicated. Pain: Clinical staff will assess patient's pain level per protocol., Medications will be given, if needed, and the pain level reassessed. and Other methods: Massage, distraction, decrease stimulus, etc. used PRN. Plan of Care Patient requires physician specializing in physical medicine and rehab oversight to provide close medical supervision of rehab issues including: Pain Management, Sleep Problems, Bowel and Bladder, Medical and co-morbidity Management, DVT prophylaxis, Rehabilitation Leadership and Coordination of treatment team Patient needs Physical Therapy: For a minimum of 1 hour and At least 5 out of 7 days Patient needs Physical Therapy to improve:: Mobility, Strengthening, Transfers, Stretching, ROM, Endurance, Stairs, Gait and Balance Patient needs Occupational Therapy: For a minimum of 1 hour and At least 5 out of 7 days Patient needs Occupational Therapy to improve ADL's incl.: Eating, Grooming, Bathing, Dressing, Toileting, Toilet transfers, Community Reintegration, Higher functioning activities, Household tasks, Adaptive Equipment, Splinting and Other activities as determined Patient requires 24/7 Rehabilitation Nursing for: Pain Issues, Identifying and preventing risk factors, Monitoring and reporting current medical conditions, Assisting with ambulation, transfer, and all ADL's, Teaching patients about disease process and medications, Family teaching, Providing safe environment, Bowel and Bladder Issues, Skin integrity and Medication Management Patient needs Licensed Mortgage Loan Officer/ Case Management for: Discharge Planning, Arranging Home Equipment or Services and Family Interventions Patient needs Dietary and Nutrition Services for: Adequate Nutrition, Nutritional Supplements and Nutritional Education Goals Patient will remain: free from falls and or injury at time of discharge. Patient will perform bed mobility at: MOD I level of assist. Patient will complete transfers from bed to chair at: MOD I level of assist. Patient will ambulate: with LRD and - (Feet with a wheeled walker at mod I on various surfaces while maintaining 25% weightbearing on the left lower extremity.) Patient will complete upper body dressing at: MOD I level of assist. (With AED as needed ) Patient will complete lower body dressing at: MOD I level of assist. Patient will complete toileting at: - (She will demonstrate transfer on and off an elevated commode and toileting tasks at a supervision level.) Patient will perform bathing at: - (She will transfer on and off a shower chair with use of a mounted grab bar and perform bathing tasks at mod I.) Patient will complete grooming at: MOD I level of assist. Patient will complete home management skills at: MOD I level of assist. Patient will achieve: - (1 curb step and 3 steps with shower bench technique to allow entrance into her home at Min assist while maintaining 25% wt bearing) Patient will have pain level of: of 3 or less Patient's skin will: remain intact Patient will receive: adequate nutrition. Discharge Planning Pt Prognosis for Sig. Practical Improv. w/in Reasonable Time: Good Estimated Length of stay (days): 21 Anticipated D/C Destination: Home Was Preadmission Assessment Accurate?: Yes
[2021-06-04 20:04] VITALS: BP 109/57; PULSE 83; RESP 18; TEMP 36.4; O2SAT 98
[2021-06-05] MEDS: oxyCODONE 5 MG Tablet PO ×4 (00:51→20:09)
[2021-06-05 07:56] VITALS: BP 139/76; PULSE 92; RESP 18; TEMP 36.6; O2SAT 97
[2021-06-05] MEDS: Verapamil SR 180 MG CAPSULE PO (08:15)
[2021-06-05] MEDS: FLUoxetine 10 MG Capsule PO (08:15)
[2021-06-05] MEDS: Iron Polysaccharide Complex 150 MG CAPSULE PO (08:15)
[2021-06-05] MEDS: ARIPiprazole 5 MG Tablet PO (08:15)
[2021-06-05] MEDS: Aspirin 81 MG TAB.CHEW PO ×2 (08:15→16:32)
[2021-06-05] MEDS: Lisinopril 20 MG Tablet PO (08:16)
[2021-06-05] MEDS: Methylphenidate HCl 5 MG Tablet PO (08:16)
[2021-06-05] MEDS: Senna/Docusate Sodium 1 Tablet 2 TABLET PO ×2 (08:16→20:10)
[2021-06-05 13:13] VITALS: O2SAT 98
--- NOTE | 2021-06-05 15:30 | CASEMGMT ---
Social Work Met with patient for initial assessment. Confirmed full code. Explained [employer] insurance with NRD 06/15 and continued stay is not guaranteed with each review. Pt explained she has been without employment since July 2020 when lay-offs happened in her company [employer]. She did receive a settlement at the time, but is long sondra now. She reports her S.O. is handling the finances and does not need assistance/resources currently. Pt did express her current COBRA insurance is very expensive and has been actively searching for different coverage. She is aware a change of insurance will impact her coverage on RU, thus she will notify this worker of any changes. The goal is for pt to return home with S.O. but he works long hours multimedia journalist, thus she will be home alone the majority of the time. Pt has steps to enter her home and her bedroom and full bathroom is on the 2nd floor. Her S.O. stated he can potentially move the bed to the 1st floor and she has access to the half bath. Pt does not own any DME. SW will order needed DME and continued therapy at [facility]. S.O. to be present at Team meeting. SW to continue to follow. Solange Rodriges, ALIN BURROUGHSW
[2021-06-05 19:34] VITALS: BP 142/84; PULSE 80; RESP 14; TEMP 36.6; O2SAT 99
--- NOTE | 2021-06-05 21:17 | PN_ITS ---
Progress Note Afebrile VSS Maintaining appropriate oxygen saturation on RA Oral intake is good Discussed with nursing - no problems that need addressed Reviewed the PT/OT notes Medication list reviewed. She has no complaints today. She slept well last night. Pain is adequately controlled. Alert and oriented x3 Lungs-clear to auscultation with good air exchange Mucous membranes are moist Heart has a regular rate and rhythm with no gallop, rub or murmur The abdomen is soft, nontender and nondistended with and has no guarding with palpation No ankle edema No calf pain Impressions 1. Status post fall resulting in a left hip fracture 2. Status post ORIF of the left hip with intramedullary nailing 3. Anxiety/depression-stable Plan Continue therapy No changes to the drug regimen at this time. Visit Charges Inpatient E&M: 20693 [facility] Hosp L1
[2021-06-06] MEDS: oxyCODONE 5 MG Tablet PO ×5 (02:00→21:00)
[2021-06-06] MEDS: Aspirin 81 MG TAB.CHEW PO ×2 (08:00→17:00)
[2021-06-06] MEDS: Iron Polysaccharide Complex 150 MG CAPSULE PO (10:00)
[2021-06-06] MEDS: ARIPiprazole 5 MG Tablet PO (10:00)
[2021-06-06] MEDS: Verapamil SR 180 MG CAPSULE PO (10:00)
[2021-06-06] MEDS: Methylphenidate HCl 5 MG Tablet PO (10:00)
[2021-06-06] MEDS: Lisinopril 20 MG Tablet PO (10:00)
[2021-06-06] MEDS: FLUoxetine 10 MG Capsule PO (10:00)
[2021-06-06 19:30] VITALS: BP 131/68; PULSE 71; RESP 16; TEMP 36.7; O2SAT 98
[2021-06-06] MEDS: Senna/Docusate Sodium 1 Tablet 2 TABLET PO (22:00)
[2021-06-07] MEDS: oxyCODONE 5 MG Tablet PO ×4 (02:15→19:38)
[2021-06-07] MEDS: Aspirin 81 MG TAB.CHEW PO ×2 (09:25→17:23)
[2021-06-07] MEDS: Verapamil SR 180 MG CAPSULE PO (09:35)
[2021-06-07] MEDS: ARIPiprazole 5 MG Tablet PO (09:35)
[2021-06-07] MEDS: FLUoxetine 10 MG Capsule PO (09:35)
[2021-06-07] MEDS: Iron Polysaccharide Complex 150 MG CAPSULE PO (09:35)
[2021-06-07] MEDS: Lisinopril 20 MG Tablet PO (09:35)
[2021-06-07] MEDS: Senna/Docusate Sodium 1 Tablet 2 TABLET PO ×2 (09:36→21:04)
[2021-06-07] MEDS: Methylphenidate HCl 5 MG Tablet PO (09:36)
[2021-06-07 10:00] VITALS: BP 137/83; PULSE 88; RESP 18; TEMP 36.7; O2SAT 97
[2021-06-07 15:07] VITALS: O2SAT 96
[2021-06-07 19:30] VITALS: BP 133/73; PULSE 85; RESP 16; TEMP 36.6; O2SAT 97
[2021-06-08] MEDS: oxyCODONE 5 MG Tablet PO ×5 (01:01→23:29)
[2021-06-08 07:02] VITALS: BP 154/91; PULSE 87; RESP 18; TEMP 36.4; O2SAT 96
[2021-06-08] MEDS: Senna/Docusate Sodium 1 Tablet 2 TABLET PO ×2 (08:13→19:49)
[2021-06-08] MEDS: Lisinopril 20 MG Tablet PO (08:13)
[2021-06-08] MEDS: FLUoxetine 10 MG Capsule PO (08:13)
[2021-06-08] MEDS: ARIPiprazole 5 MG Tablet PO (08:13)
[2021-06-08] MEDS: Aspirin 81 MG TAB.CHEW PO ×2 (08:13→16:33)
[2021-06-08] MEDS: Verapamil SR 180 MG CAPSULE PO (08:14)
[2021-06-08] MEDS: Iron Polysaccharide Complex 150 MG CAPSULE PO (08:14)
[2021-06-08] MEDS: Methylphenidate HCl 5 MG Tablet PO (08:17)
--- NOTE | 2021-06-08 09:30 | NURSING ---
Addendum entered by Zita Barry 06/08/21 10:53: Received call form Treva at Dr Wick office. remove dressing 5 days post op can leave RAVINDER if not draining. Remove agustina [address] Dorado will do xrays at office when pt follows up Original Note: Spoke with Daphnie at Dr Wick office for dressing change orders & staple removal date. office will call back
--- NOTE | 2021-06-08 11:04 | PCM.PN.BLA ---
Progress Note Ondina was seen on team rounds today. Her significant other Fadi was present for rounds. All questions were answered. Afebrile VSS Maintaining appropriate oxygen saturation on RA Oral intake is good Discussed with nursing - no problems that need addressed Reviewed the PT/OT/ST notes Medication list reviewed. Taking oxycodone 5 mg 4-5 times daily for pain. She tells me that her pain is adequately controlled. She is fearful of doing things with the therapists and has to be encouraged to try things. She is sleeping well at night. Denies calf pain, shortness of breath, chest pain, lightheadedness, nausea/vomiting, abdominal pain, palpitations. Physical Exam Const alert, oriented x3 and no apparent distress Constitutional Narrative: Sitting in the recliner at the bedside and appears comfortable Resp clear to auscultation bilaterally Cardio regular rate and regular rhythm GI normal to inspection, nondistended, normoactive bowel sounds, soft to palpation and non-tender Extremity Extremity Narrative: Bandage is not due to be removed for a few days yet but it is dry and there is no erythema around the dressing. Skin General Skin Exam: no breakdown Rashes: no rashes Psych mental status grossly normal, thought process normal and cooperative Psych Narrative: Fearful of trying things with therapy. She has a child like voice at times and the therapists feel she is infantile in behavior at times. She follows with a psychiatrist and is known to have anxiety about her health and admits to being a hypochondriac She was appropriate with me when I saw her today. Thought process seems normal. Assessment & Plan Assessment/Plan (1) Acute blood loss anemia: (2) Anxiety: (3) Depression: (4) Physical debility: (5) Attention deficit disorder: (6) Status post open reduction and internal fixation (ORIF) of fracture: (7) Closed left hip fracture: QUALIFIERS: Encounter type: initial encounter Qualified Code(s): S72.002A - Fracture of unspecified part of neck of left femur, initial encounter for closed fracture PLAN: 1. H&H in the a.m. 2. Continue therapy. 3. Plan on home at [place]. Visit Charges Inpatient E&M: 49695 Subs Hosp L2
[2021-06-08 13:48] LABS: Hematocrit 31.8 % (37-47); Hemoglobin 10.6 g/dL (12.0-15.0)
--- NOTE | 2021-06-08 14:10 | CASEMGMT ---
Social Work IDT met with patient and S.O. for Team meeting. Discussed patient's progress in PT/OT and nursing. Pt making progress but needs to be able to complete steps inside home to return home safely. S.O. 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 Explained [employer] insurance with NRD 06/15 and continued stay is not guaranteed with each review. Will continue to follow progress. Solange Rodriges, LIVERY CAR DRIVER WHARF LABOURER
--- NOTE | 2021-06-08 15:32 | NURSING ---
Dressing to left hip incisions removed at this time. Hayes are intact. No drainage noted. No signs/symptoms of infection noted. Patient tolerated well, no complaints of further pain during removal.
--- NOTE | 2021-06-08 15:35 | NURSING ---
Addendum to previous note- Incisions left open to air at this time with no new drainage noted.
[2021-06-08 19:39] VITALS: BP 155/84; PULSE 88; RESP 16; TEMP 36.7; O2SAT 97
[2021-06-09] MEDS: oxyCODONE 5 MG Tablet PO ×4 (05:27→22:00)
[2021-06-09 07:29] VITALS: BP 145/77; PULSE 75; RESP 18; TEMP 36.2; O2SAT 97
[2021-06-09] MEDS: ARIPiprazole 5 MG Tablet PO (07:57)
[2021-06-09] MEDS: Lisinopril 20 MG Tablet PO (07:57)
[2021-06-09] MEDS: Iron Polysaccharide Complex 150 MG CAPSULE PO (07:57)
[2021-06-09] MEDS: Verapamil SR 180 MG CAPSULE PO (07:57)
[2021-06-09] MEDS: Aspirin 81 MG TAB.CHEW PO ×2 (07:57→16:53)
[2021-06-09] MEDS: FLUoxetine 10 MG Capsule PO (07:57)
[2021-06-09] MEDS: Senna/Docusate Sodium 1 Tablet 2 TABLET PO ×2 (07:57→21:58)
[2021-06-09] MEDS: Methylphenidate HCl 5 MG Tablet PO (08:01)
[2021-06-09] MEDS: COVID-19 VACC, MRNA(PFIZER)/PF 30 MCG/0.3 ML SYRINGE IM (15:32)
[2021-06-09 21:55] VITALS: BP 125/71; PULSE 77; RESP 16; TEMP 36.4; O2SAT 99
--- NOTE | 2021-06-10 04:27 | NURSING ---
Reviewed and agree with Jim RHODES on her assessment and handoff.
[2021-06-10] MEDS: oxyCODONE 5 MG Tablet PO ×4 (05:47→21:12)
[2021-06-10] MEDS: Aspirin 81 MG TAB.CHEW PO ×2 (08:58→17:56)
[2021-06-10] MEDS: Verapamil SR 240 MG Tablet PO (08:59)
[2021-06-10] MEDS: ARIPiprazole 5 MG Tablet PO (08:59)
[2021-06-10] MEDS: Iron Polysaccharide Complex 150 MG CAPSULE PO (08:59)
[2021-06-10] MEDS: FLUoxetine 10 MG Capsule PO (09:00)
[2021-06-10] MEDS: Senna/Docusate Sodium 1 Tablet 2 TABLET PO ×2 (09:00→21:13)
[2021-06-10] MEDS: Lisinopril 20 MG Tablet PO (09:00)
[2021-06-10 09:02] VITALS: BP 116/73; PULSE 79; RESP 16; TEMP 36.5; O2SAT 96
[2021-06-10] MEDS: Methylphenidate HCl 5 MG Tablet PO (09:02)
--- NOTE | 2021-06-10 13:53 | PN_ITS ---
Progress Note Afebrile VSS Maintaining appropriate oxygen saturation on RA Oral intake is good Discussed with nursing - no problems that need addressed Reviewed the PT/OT notes Medication list reviewed. She is feeling sore and achy today and she thinks this is due to receiving a second COVID vaccine. She is AF. She denies dysuria, cough, sore throat, chi lls. No vomiting and no abd pain. No CP, SOB, calf pain. Physical Exam Const alert, oriented x3 and healthy appearing General Appearance: cooperative HEENT oropharynx normal Chest Chest: symmetrical chest wall rise Resp normal respiratory effort and clear to auscultation bilaterally Effort and Inspection: able to speak in complete sentences Cardio regular rate, regular rhythm, no murmurs and no gallops GI normal to inspection, nondistended, normoactive bowel sounds and soft to palpation GI Narrative: no guarding with palpation Extremity no calf tenderness and no pedal edema Skin General Skin Exam: no breakdown Rashes: no rashes Wound Narrative: The incision is healing and there is no erythema and no DC. Assessment & Plan Assessment/Plan (1) Physical debility: (2) Status post open reduction and internal fixation (ORIF) of fracture: (3) Acute post-operative pain: (4) Closed left hip fracture: QUALIFIERS: Encounter type: initial encounter Qualified Code(s): S72.002A - Fracture of unspecified part of neck of left femur, initial encounter for closed fracture (5) Myalgia: PLAN: 1. Add Motrin 400 mg Q6H PRN myalgia 2. Continue therapy - she is progressing well. Did less with ambulation today but probably due to muscles aches. Visit Charges Inpatient E&M: 89068 Subs Hosp L1
[2021-06-10 22:47] VITALS: BP 148/79; PULSE 79; RESP 14; TEMP 36.7; O2SAT 99
--- NOTE | 2021-06-11 03:44 | NURSING ---
Reviewed and agree wioth PLATING TANK OPERATOR documentation and assessment charting.
[2021-06-11] MEDS: oxyCODONE 5 MG Tablet PO ×3 (05:07→20:53)
[2021-06-11] MEDS: Aspirin 81 MG TAB.CHEW PO ×2 (08:03→16:32)
[2021-06-11 08:47] VITALS: BP 143/94; PULSE 82; RESP 16; TEMP 36.9; O2SAT 98
[2021-06-11 09:05] VITALS: O2SAT 99
[2021-06-11] MEDS: ARIPiprazole 5 MG Tablet PO (09:50)
[2021-06-11] MEDS: FLUoxetine 10 MG Capsule PO (09:51)
[2021-06-11] MEDS: Verapamil SR 240 MG Tablet PO (09:51)
[2021-06-11] MEDS: Lisinopril 20 MG Tablet PO (09:52)
[2021-06-11] MEDS: Senna/Docusate Sodium 1 Tablet 2 TABLET PO ×2 (09:52→20:53)
[2021-06-11] MEDS: Methylphenidate HCl 5 MG Tablet PO (09:55)
[2021-06-11] MEDS: Iron Polysaccharide Complex 150 MG CAPSULE PO (14:21)
[2021-06-11 21:00] VITALS: PULSE 83; RESP 14; O2SAT 98
[2021-06-11 21:18] VITALS: BP 143/94; PULSE 82; RESP 16; TEMP 36.9; O2SAT 98
--- NOTE | 2021-06-12 03:27 | NURSING ---
Reviewed and agreed with documentation and assessment charting.
[2021-06-12] MEDS: oxyCODONE 5 MG Tablet PO ×4 (05:03→23:50)
[2021-06-12 07:48] VITALS: BP 143/81; PULSE 76; RESP 18; TEMP 36.4; O2SAT 96
[2021-06-12] MEDS: Iron Polysaccharide Complex 150 MG CAPSULE PO (07:53)
[2021-06-12] MEDS: ARIPiprazole 5 MG Tablet PO (07:53)
[2021-06-12] MEDS: Lisinopril 20 MG Tablet PO (07:53)
[2021-06-12] MEDS: FLUoxetine 10 MG Capsule PO (07:53)
[2021-06-12] MEDS: Verapamil SR 240 MG Tablet PO (07:54)
[2021-06-12] MEDS: Aspirin 81 MG TAB.CHEW PO ×2 (07:55→17:21)
[2021-06-12] MEDS: Methylphenidate HCl 5 MG Tablet PO (07:55)
--- NOTE | 2021-06-12 13:18 | PCM.PN.BLA ---
Progress Note Afebrile VSS-occasionally mild elevation in blood pressure - asymptomatic Maintaining appropriate oxygen saturation on RA Oral intake is good Discussed with nursing - no problems that need addressed Reviewed the PT/OT notes Medication list reviewed. Anika reports good pain control. She is progressing in therapy. She has no complaints today. A and OX3 Calm and making good eye contact L- CTA HRRR abd - soft and NT, good bowel function she has some edema of the ankles but, sits with her legs dependent when she is not doing therapy. no rashes and no skin breakdown. Impressions 1. S/P fall resulting in Left hip fracture - S/P ORIF 2. anxiety 3. Uncontrolled HTN -verapamil increased to 240 mg 4. Continue therapy - must be able to go up 2 steps to gain entry to her house through the garage. 5. Needs grab bars in the shower and in the garage. 6. anxiety seems better and she is less fearful and resistant to trying new things. Visit Charges Inpatient E&M: 46308 Subs Hosp L1
[2021-06-12 19:14] VITALS: BP 128/68; PULSE 78; RESP 16; TEMP 36.4; O2SAT 99
[2021-06-12 21:20] VITALS: PULSE 78; RESP 16
[2021-06-12] MEDS: traZODone 50 MG Tablet PO (21:26)
[2021-06-12] MEDS: Senna/Docusate Sodium 1 Tablet 2 TABLET PO (21:26)
--- NOTE | 2021-06-13 03:36 | NURSING ---
Reviewed and agree with HAND FINISHER documentation and assessment charting.
[2021-06-13] MEDS: Aspirin 81 MG TAB.CHEW PO ×2 (07:46→16:16)
[2021-06-13 08:57] VITALS: BP 109/60; PULSE 84; RESP 16; TEMP 36.1; O2SAT 100
[2021-06-13] MEDS: Iron Polysaccharide Complex 150 MG CAPSULE PO (10:53)
[2021-06-13] MEDS: Methylphenidate HCl 5 MG Tablet PO (10:53)
[2021-06-13] MEDS: ARIPiprazole 5 MG Tablet PO (10:53)
[2021-06-13] MEDS: FLUoxetine 10 MG Capsule PO (10:54)
[2021-06-13] MEDS: Verapamil SR 240 MG Tablet PO (10:54)
[2021-06-13] MEDS: Lisinopril 20 MG Tablet PO (10:55)
[2021-06-13] MEDS: Senna/Docusate Sodium 1 Tablet 2 TABLET PO (10:56)
[2021-06-13] MEDS: oxyCODONE 5 MG Tablet PO ×2 (16:14→20:55)
[2021-06-13 20:03] VITALS: BP 142/82; PULSE 74; RESP 14; TEMP 36.2; O2SAT 98
[2021-06-13] MEDS: traZODone 50 MG Tablet PO (23:03)
[2021-06-14] MEDS: oxyCODONE 5 MG Tablet PO ×3 (05:37→20:24)
[2021-06-14] MEDS: Verapamil SR 240 MG Tablet PO (08:17)
[2021-06-14] MEDS: ARIPiprazole 5 MG Tablet PO (08:17)
[2021-06-14] MEDS: FLUoxetine 10 MG Capsule PO (08:17)
[2021-06-14] MEDS: Senna/Docusate Sodium 1 Tablet 2 TABLET PO ×2 (08:18→20:24)
[2021-06-14] MEDS: Iron Polysaccharide Complex 150 MG CAPSULE PO (08:18)
[2021-06-14] MEDS: Methylphenidate HCl 5 MG Tablet PO (08:18)
[2021-06-14] MEDS: Aspirin 81 MG TAB.CHEW PO ×2 (08:18→17:16)
[2021-06-14] MEDS: Lisinopril 20 MG Tablet PO (08:19)
[2021-06-14 09:54] VITALS: BP 99/80; PULSE 83; RESP 16; TEMP 36.4; O2SAT 96
[2021-06-14 19:37] VITALS: BP 124/74; PULSE 78; RESP 17; TEMP 36; O2SAT 97
[2021-06-15] MEDS: oxyCODONE 5 MG Tablet PO ×2 (02:41→14:12)
[2021-06-15] MEDS: Senna/Docusate Sodium 1 Tablet 2 TABLET PO (07:56)
[2021-06-15] MEDS: Iron Polysaccharide Complex 150 MG CAPSULE PO (07:56)
[2021-06-15] MEDS: Aspirin 81 MG TAB.CHEW PO ×2 (07:56→18:01)
[2021-06-15] MEDS: ARIPiprazole 5 MG Tablet PO (07:56)
[2021-06-15] MEDS: FLUoxetine 10 MG Capsule PO (07:56)
[2021-06-15] MEDS: Verapamil SR 240 MG Tablet PO (07:56)
[2021-06-15] MEDS: Methylphenidate HCl 5 MG Tablet PO (07:56)
[2021-06-15] MEDS: Lisinopril 20 MG Tablet PO (07:56)
[2021-06-15 09:01] VITALS: BP 109/61; PULSE 89; RESP 12; TEMP 36.7; O2SAT 97
--- NOTE | 2021-06-15 10:37 | PN_ITS ---
Progress Note Ondina was seen on TEAM rounds today and her significant other Fadi participated by phone. Afebrile VSS-blood pressure is better controlled with increasing verapamil to 240 mg daily from 180 mg daily. Heart rate is within normal limits. Maintaining appropriate oxygen saturation on RA Oral intake is good Discussed with nursing - no problems that need addressed Reviewed the PT/OT notes Medication list reviewed. Making good progress in therapy. Worked on home making tasks today. She denies pain. She is sleeping well. Denies CP, SOB, N/V/abd pain, dysuria, lightheadedness. Good bowel function - was a little soft on Tuesday but, she refused 2 doses of stool softeners and back to normal today. she is much less anxious and fearful now. Physical Exam Const alert and no apparent distress Constitutional Narrative: Sitting in the recliner at the bedside. She appears calm today. Not requiring nearly the assistance and encouragement that she did when first admitted. General Appearance: cooperative and comfortable Resp normal respiratory effort and clear to auscultation bilaterally Effort and Inspection: able to speak in complete sentences Cardio regular rate, regular rhythm, no murmurs, no rub and no gallops GI normal to inspection, nondistended, normoactive bowel sounds and soft to p alpation Extremity no calf tenderness Extremity Narrative: trace ankle edema on the left. There is edema of the Left thigh. The incision is intact and there is no erythema and No DC. Skin General Skin Exam: no breakdown Rashes: no rashes Assessment & Plan Assessment/Plan (1) Physical debility: (2) Fall: (3) Hip fracture, left: (4) Status post open reduction and internal fixation (ORIF) of fracture: (5) Acute post-operative pain: (6) Anxiety: (7) Acute blood loss anemia: (8) Vitamin D insufficiency: PLAN: 1. Continue therapy 2. Pt given info/list of people to call to have grab bars installed in the garage ad the shower. 3. Fadi asked when he should start preparing for her to come home......he was told he should start preparing now. She is ambulating with a cane now at times. There are 2 steps to enter the house through the garage. Apparently there needs to be a pathway made through the garage because there is a lot of stuff in there. Visit Charges Inpatient E&M: [id number] Subs Hosp L2
--- NOTE | 2021-06-15 14:09 | CASEMGMT ---
Addendum entered by Solange Rodriges 06/15/21 14:13: Pt asked this worker further questions about switching insurances as her COBRA ends 07/06. She has not received any updates from Medicaid and she needs that to continue with her insurance process. Sent email to [facility] to follow up on application status. Pt appreciative. SW to continue to follow. Original Note: Social Work IDT met with patient and via conference call for Team meeting. Discussed patient's progress in PT/OT and nursing. Pt progressing well. Explained [employer] insurance with [employer]D 06/15 and continued stay is not guaranteed. The goal is for pt to return home with . 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 SW to order [facility] PT/OT and FWW. Provided resources for handrails and grab bar installation. SW to continue to follow. Solange Rodriges, PACKAGING CLERK ADOLESCENT PSYCHIATRIST
[2021-06-15] MEDS: traZODone 50 MG Tablet PO (19:51)
[2021-06-15 20:43] VITALS: BP 128/66; PULSE 77; RESP 18; TEMP 36.2; O2SAT 96
[2021-06-16] MEDS: oxyCODONE 5 MG Tablet PO ×3 (01:03→20:42)
--- NOTE | 2021-06-16 04:17 | NURSING ---
Charting from wrong pt.
[2021-06-16 08:27] VITALS: BP 123/67; PULSE 82; RESP 17; TEMP 36.6; O2SAT 96
[2021-06-16] MEDS: ARIPiprazole 5 MG Tablet PO (09:11)
[2021-06-16] MEDS: Aspirin 81 MG TAB.CHEW PO ×2 (09:11→17:07)
[2021-06-16] MEDS: FLUoxetine 10 MG Capsule PO (09:12)
[2021-06-16] MEDS: Verapamil SR 240 MG Tablet PO (09:12)
[2021-06-16] MEDS: Iron Polysaccharide Complex 150 MG CAPSULE PO (09:12)
[2021-06-16] MEDS: Lisinopril 20 MG Tablet PO (09:12)
[2021-06-16] MEDS: Methylphenidate HCl 5 MG Tablet PO (09:16)
[2021-06-16 20:00] VITALS: BP 144/77; PULSE 82; RESP 18; TEMP 36.5; O2SAT 97
[2021-06-16 20:30] VITALS: PULSE 82; RESP 18; O2SAT 97
[2021-06-16] MEDS: traZODone 50 MG Tablet PO (23:10)
[2021-06-17] MEDS: oxyCODONE 5 MG Tablet PO ×3 (03:19→22:41)
[2021-06-17 07:52] VITALS: BP 118/62; PULSE 89; RESP 16; TEMP 36.2; O2SAT 96
[2021-06-17] MEDS: Methylphenidate HCl 5 MG Tablet PO (09:12)
[2021-06-17] MEDS: ARIPiprazole 5 MG Tablet PO (09:12)
[2021-06-17] MEDS: Lisinopril 20 MG Tablet PO (09:12)
[2021-06-17] MEDS: FLUoxetine 10 MG Capsule PO (09:12)
[2021-06-17] MEDS: Iron Polysaccharide Complex 150 MG CAPSULE PO (09:13)
[2021-06-17] MEDS: Verapamil SR 240 MG Tablet PO (09:13)
[2021-06-17] MEDS: Senna/Docusate Sodium 1 Tablet 2 TABLET PO ×2 (09:13→20:04)
[2021-06-17] MEDS: Aspirin 81 MG TAB.CHEW PO ×2 (09:13→16:30)
[2021-06-17 19:00] VITALS: BP 168/78; PULSE 79; RESP 16; TEMP 36.2; O2SAT 98
[2021-06-17] MEDS: traZODone 50 MG Tablet PO (20:04)
[2021-06-18] MEDS: Acetaminophen 325 MG Tablet 650 MG PO (02:15)
[2021-06-18] MEDS: oxyCODONE 5 MG Tablet PO ×3 (06:12→23:08)
[2021-06-18 08:27] VITALS: BP 113/62; PULSE 82; RESP 18; TEMP 36.4; O2SAT 97
[2021-06-18] MEDS: Lisinopril 20 MG Tablet PO (09:13)
[2021-06-18] MEDS: ARIPiprazole 5 MG Tablet PO (09:13)
[2021-06-18] MEDS: Iron Polysaccharide Complex 150 MG CAPSULE PO (09:13)
[2021-06-18] MEDS: FLUoxetine 10 MG Capsule PO (09:13)
[2021-06-18] MEDS: Senna/Docusate Sodium 1 Tablet 2 TABLET PO ×2 (09:13→20:14)
[2021-06-18] MEDS: Aspirin 81 MG TAB.CHEW PO ×2 (09:13→17:14)
[2021-06-18] MEDS: Methylphenidate HCl 5 MG Tablet PO (09:13)
[2021-06-18] MEDS: Verapamil SR 240 MG Tablet PO (09:13)
[2021-06-18 19:30] VITALS: BP 118/60; PULSE 70; RESP 16; TEMP 36.6; O2SAT 98
[2021-06-18] MEDS: traZODone 50 MG Tablet PO (20:32)
[2021-06-19 08:40] VITALS: BP 128/72; PULSE 88; RESP 16; TEMP 36.6; O2SAT 93
[2021-06-19] MEDS: FLUoxetine 10 MG Capsule PO (09:11)
[2021-06-19] MEDS: Aspirin 81 MG TAB.CHEW PO ×2 (09:11→17:45)
[2021-06-19] MEDS: Methylphenidate HCl 5 MG Tablet PO (09:11)
[2021-06-19] MEDS: Iron Polysaccharide Complex 150 MG CAPSULE PO (09:11)
[2021-06-19] MEDS: Senna/Docusate Sodium 1 Tablet 2 TABLET PO (09:11)
[2021-06-19] MEDS: Verapamil SR 240 MG Tablet PO (09:11)
[2021-06-19] MEDS: ARIPiprazole 5 MG Tablet PO (09:11)
[2021-06-19] MEDS: Lisinopril 20 MG Tablet PO (09:11)
[2021-06-19] MEDS: oxyCODONE 5 MG Tablet PO (15:43)
[2021-06-19 19:30] VITALS: BP 123/75; PULSE 71; RESP 16; TEMP 36.6; O2SAT 96
[2021-06-19] MEDS: traZODone 50 MG Tablet PO (21:13)
[2021-06-20] MEDS: oxyCODONE 5 MG Tablet PO ×2 (00:08→16:14)
[2021-06-20] MEDS: Aspirin 81 MG TAB.CHEW PO ×2 (07:29→16:15)
[2021-06-20 08:00] VITALS: BP 108/57; PULSE 74; RESP 18; TEMP 36.8; O2SAT 96
[2021-06-20] MEDS: Verapamil SR 240 MG Tablet PO (10:09)
[2021-06-20] MEDS: ARIPiprazole 5 MG Tablet PO (10:09)
[2021-06-20] MEDS: Lisinopril 20 MG Tablet PO (10:09)
[2021-06-20] MEDS: FLUoxetine 10 MG Capsule PO (10:09)
[2021-06-20] MEDS: Methylphenidate HCl 5 MG Tablet PO (10:09)
[2021-06-20] MEDS: Iron Polysaccharide Complex 150 MG CAPSULE PO (10:09)
[2021-06-20 19:29] VITALS: BP 143/78; PULSE 75; RESP 16; TEMP 36.5; O2SAT 98
[2021-06-20] MEDS: Senna/Docusate Sodium 1 Tablet 2 TABLET PO (20:28)
[2021-06-20] MEDS: traZODone 50 MG Tablet PO (20:28)
[2021-06-21 07:00] VITALS: BP 127/79; PULSE 62; RESP 16; TEMP 36.7; O2SAT 100
[2021-06-21] MEDS: FLUoxetine 10 MG Capsule PO (08:11)
[2021-06-21] MEDS: Aspirin 81 MG TAB.CHEW PO ×2 (08:11→17:14)
[2021-06-21] MEDS: Verapamil SR 240 MG Tablet PO (08:11)
[2021-06-21] MEDS: ARIPiprazole 5 MG Tablet PO (08:11)
[2021-06-21] MEDS: Lisinopril 20 MG Tablet PO (08:11)
[2021-06-21] MEDS: Iron Polysaccharide Complex 150 MG CAPSULE PO (08:12)
[2021-06-21] MEDS: Methylphenidate HCl 5 MG Tablet PO (08:12)
[2021-06-21] MEDS: oxyCODONE 5 MG Tablet PO ×2 (08:12→17:16)
--- NOTE | 2021-06-21 12:32 | PCM.PN.BLA ---
Progress Note Afebrile VSS Maintaining appropriate oxygen saturation on RA Oral intake is good Discussed with nursing - no problems that need addressed Reviewed the PT/OT notes-she ambulated 175 feet with wheeled walker and Tuesday. She did the steps in the hallway in a step to pattern and descended backwards for better control and to maintain weightbearing status. Medication list reviewed. She has no complaints today. She feels ad though she will be ready to go home on Tuesday. Pain is well controlled and she is feeling more confident. the Grab bars are being installed in the house and arrangements are being made so that she will be able to safely go home Tuesday. Physical Exam Const alert, oriented x3 and no apparent distress Resp clear to auscultation bilaterally Effort and Inspection: able to speak in complete sentences Cardio regular rate, regular rhythm and no gallops GI normal to inspection, nondistended, normoactive bowel sounds, soft to palpation and non-tender Extremity no calf tenderness Extremity Narrative: ankle edema is mostly controlled with RAMU hose......she always has her legs dependent when I enter the room. Skin Skin Narrative: Incisions are intact with no dehiscence and no erythema or DC. Assessment & Plan Assessment/Plan (1) Hip fracture, left: (2) Depression: (3) Anxiety: (4) Physical debility: (5) Status post open reduction and internal fixation (ORIF) of fracture: PLAN: 1. She will be seen on TEAM rounds tomorrow and we will finalize plans for DC with the [facility] 2. No change to the drug regimen. She is taking the Oxycodone 1-2 times a day and will give her a RX at [facility]. 3. She ordered a quad cane from [employer] which should arrive tomorrow. [facility] arranged for a FWW. 4. HHC at [facility] Visit Charges Inpatient E&M: [id number] Subs Hosp L1
[2021-06-21 19:47] VITALS: BP 134/80; PULSE 77; RESP 15; TEMP 36.3; O2SAT 99
[2021-06-21] MEDS: Senna/Docusate Sodium 1 Tablet 2 TABLET PO (20:11)
[2021-06-21] MEDS: traZODone 50 MG Tablet PO (20:29)
--- NOTE | 2021-06-22 04:39 | NURSING ---
Reviewed and agree with FARM MACHINERY ERECTOR documentation and assessment charting.
[2021-06-22 08:55] VITALS: BP 124/65; PULSE 72; RESP 17; TEMP 36.6; O2SAT 97
[2021-06-22] MEDS: Methylphenidate HCl 5 MG Tablet PO (09:10)
[2021-06-22] MEDS: Lisinopril 20 MG Tablet PO (09:10)
[2021-06-22] MEDS: Iron Polysaccharide Complex 150 MG CAPSULE PO (09:10)
[2021-06-22] MEDS: Senna/Docusate Sodium 1 Tablet 2 TABLET PO (09:10)
[2021-06-22] MEDS: FLUoxetine 10 MG Capsule PO (09:10)
[2021-06-22] MEDS: Verapamil SR 240 MG Tablet PO (09:10)
[2021-06-22] MEDS: ARIPiprazole 5 MG Tablet PO (09:10)
[2021-06-22] MEDS: oxyCODONE 5 MG Tablet PO ×2 (09:15→18:17)
[2021-06-22] MEDS: Aspirin 81 MG TAB.CHEW PO ×2 (12:26→17:28)
--- NOTE | 2021-06-22 13:59 | CASEMGMT ---
Social Work IDT met with patient and via conference call for Team meeting. Discussed patient's progress in PT/OT and nursing. Pt progressing well. Explained [employer] insurance with [employer]D 06/22. IDT and pt requesting DC 06/23. Referred to [facility] PT/OT, per request and [employer] for FWW. to transport. Plan: DC home 06/23 with , [facility] PT/OT, FWW Solange Rodriges, DIALYSIS RN AIRLINE FLIGHT ATTENDANT
--- NOTE | 2021-06-22 16:00 | PCM.DC ---
Discharge Instructions Diet Discharge Diet: - (low salt and low fat) Activity Discharge Activity: May Not Drive and May Shower Ice area for (Minutes): 10 Weight Bearing Status: Partial weight bearing (25% weight bearing on the L leg) Lifting Restrictions: 5 lbs Keep extremity elevated above heart level: Left Leg Additional Activity Instructions:: use the front wheeled walker for ambulation outside the hosue. In side the house you may use the quad cane or the walker. Dressing / Incision Call your doctor if your incision/area has: Increased Pain/ Swelling, Increased Redness, Foul Smelling Discharge and Swelling at the incision site Call your doctor if you observe: Fever of 101 or Higher, Inability to urinate, Inability to have a bowel movement, Shortness of breath, Chest pain, Increased palpitations (irregular heartbeat), Calf discomfort and Uncontrolled pain Suture Line Care: Avoid Pulling/Pushing, Avoid Pinching/Bending and - (Ok to leave the incision open to air but if you prefer you can cover with a dry gauze) Cleanse incision/area with: Soap & Water Follow Up Care Please Follow Up With: Ryan Stone MD When: 7-10 days post DC Test Results: Test results from this visit will be discussed in further detail at your follow-up appointment, if applicable. Pending Tests Upon Discharge: none Discharge Plan Admission Admit Date/Time: 06/03/21 14:09 Primary Reason for Your Visit: Physical debility due to Left hip fracture. S/P ORIF. Attending Provider: Kindra Bryan Primary Care Provider: Ryan Stone Consulting Providers: Franky Dorado Instructions Patient Instructions: ED Sleep Apnea, Obstructive Additional Instructions / Restrictions: 1. Motrin and Naprosyn are both good pain relievers and they are over the counter. You can take 400-600 mg of Motrin (Ibuprofen) up to 3 times a day or Naprosyn (Alleve) 400 mg twice a day. 2. Ice helps with pain so if your have pain after exercise ice for 10-15 minutes. 3. Pain lessens over time but, you have to keep moving or you will lose muscle strength and get stiff and you will will have difficulty ambulating. Do the exercises given to you by the therapists at least once every day. 4. she have been diagnosed with sleep apnea in the past and you were prescribed CPAP but, you were not able to tolerate the mask and so you have untreated sleep apnea. You have also gained weight since the last sleep study so the sleep apnea may be worse. One of the side effects of Abilify is it is associated with weight gain. Untreated sleep apnea cause chronic fatigue, decreased motivation, depression, inability to concentrate, memory difficulties, increased blood pressure in the lungs called pulmonary Hypertension, problems with the rhythm of the heart and increases your risk for strokes. It also can lead to addictions because you never feel good and you look for something that makes you feel better. I recommend you discuss getting a new sleep study with Dr. Stone. There are many different masks available now and there are tubes that go in your nose (like getting oxygen) so you may not even need to wear a mask. 5. We have 2 pulmonologists at [facility] that treat sleep apnea and we have a sleep lab. They can try the different masks and nasal apparatus with you to see what works for you. 6. Your blood pressures were high and I increased the Verapamil from 180 mg daily to 240 mg daily. The blood pressures are better. In the morning 1 day prior to discharge your BP was 124/65. 7. You had a bone density test in 2017 and it showed osteopenia which means you have some bone loss. Bone loss leads to fractures. You had a Vitamin D level in the hospital and it was 21.4 which is considered insufficiency. Vitamin D is necessary to absorb calcium from the GI tract. Vitamin D comes from the sun and we do not see much of that in [place] in the winter. I advise you discuss this with Dr. Stone and get on a Vitamin D supplement. You are also due for a new bone density scan. 8. It was a pleasure to meet you Ondina. You did well in therapy and worked hard. If you have any questions after you leave rehab please do not hesitate to call me. My office number is [phone]. If I do not answer please leave a VM and I will get back to you. Discharge Orders/Prescriptions Prescriptions: New oxycodone 5 mg Tablet 5 mg PO Q4H PRN PRN (Reason: Pain 4-10) 7 Days Qty: 28 RF: 0 sennosides-docusate sodium [Stool Softener-Stimulant Laxat] 8.6-50 mg Tablet 2 tab PO BID Qty: 60 RF: 0 verapamil 240 mg Tablet Extended Release 240 mg PO DAILY Qty: 30 RF: 0 Continued trazodone 50 MG tablet 50 mg PO QHS PRN (Reason: Sleep) RF: 0 fluoxetine 10 MG capsule 10 mg PO DAILY RF: 0 aripiprazole 5 MG tablet 5 mg PO DAILY RF: 0 quinapril 20 mg tablet 20 mg PO DAILY RF: 0 methylphenidate HCl 18 mg tablet extended release 24hr 17.25 mg PO DAILY RF: 0 acetaminophen [Tylenol] 325 mg Tablet 650 mg PO Q6H PRN PRN (Reason: Pain Score 1-10/Temp > 100.7 F) Qty: 0 RF: 0 melatonin 3 mg Tablet 3 mg PO QHS PRN PRN (Reason: Insomnia) Qty: 0 RF: 0 polysaccharide iron complex [Ferrex 150] 150 mg iron capsule 150 mg PO DAILY RF: 0 aspirin 81 mg tablet,chewable 81 mg PO BIDCM Qty: 0 RF: 0 Discontinued verapamil 180 mg capsule,ext rel. pellets 24 hr 180 mg PO DAILY RF: 0 oxycodone 5 mg tablet 5 mg PO Q4H PRN PRN (Reason: Pain) RF: 0 No Action sennosides-docusate sodium [Stool Softener-Stimulant Laxat] 8.6-50 mg tablet 2 tab PO BID RF: 0 Referrals / Follow Up: Ryan Stone MD [Primary Care Provider] - 07/03/21 11:50 am () Franky Dorado MD [STAFF PHYSICIAN] - 06/26/21 1:15 pm Disposition Disposition (needs filled in before D/C Order can be placed): Home Health Service
--- NOTE | 2021-06-22 17:10 | PCM.DC.SUM ---
Providers Date of Admission: 06/03/21 Date of Discharge: 06/23/21 Primary Care Physician: MD Dr. Franky Costello Reason For Visit: Debility due to Left hip fracture. S/P ORIF Diagnosis Discharge Diagnosis (1) Physical debility: Status: Acute Code(s): R53.81 - Other malaise (2) Fall: Status: Acute Code(s): W19.XXXA - Unspecified fall, initial encounter (3) Hip fracture, left: Status: Acute Code(s): S72.002A - Fracture of unspecified part of neck of left femur, initial encounter for closed fracture (4) Status post open reduction and internal fixation (ORIF) of fracture: Status: Acute Code(s): Z98.890 - Other specified postprocedural states; Z87.81 - Personal history of (healed) traumatic fracture (5) Acute post-operative pain: Status: Acute Code(s): G89.18 - Other acute postprocedural pain (6) Osteopenia: Status: Acute Code(s): M85.80 - Other specified disorders of bone density and structure, unspecified site (7) Vitamin D insufficiency: Status: Acute Code(s): E55.9 - Vitamin D deficiency, unspecified (8) Smoker: Status: Acute Code(s): F17.200 - Nicotine dependence, unspecified, uncomplicated (9) Acute blood loss anemia: Status: Acute Code(s): D62 - Acute posthemorrhagic anemia (10) Depression: Status: Acute Code(s): F32.9 - Major depressive disorder, single episode, unspecified (11) Anxiety: Status: Acute Code(s): F41.9 - Anxiety disorder, unspecified Plan: DC home on 06/23/21. C with [facility] for PT/OT. [employer] for FWW. she purchased a quad cane on [employer]. Grab bars have been installed and she has a Shower chair. Medications at Discharge Home Medications trazodone 50 mg PO QHS PRN 12/23/15 aripiprazole 5 mg PO DAILY 09/05/20 fluoxetine 10 mg PO DAILY 09/05/20 methylphenidate HCl 17.25 mg PO DAILY 05/31/21 quinapril 20 mg PO DAILY 05/31/21 acetaminophen [Tylenol] 650 mg PO Q6H PRN PRN #0 tab 06/03/21 melatonin 3 mg PO QHS PRN PRN #0 tab 06/03/21 polysaccharide iron complex [Ferrex 150] 150 mg PO DAILY 06/03/21 sennosides-docusate sodium [Stool Softener-Stimulant Laxat] 2 tab PO BID 06/03/21 aspirin 81 mg PO BIDCM #0 tab 06/22/21 oxycodone 5 mg PO Q4H PRN PRN 7 Days #28 tab 06/22/21 sennosides-docusate sodium [Stool Softener-Stimulant Laxat] 2 tab PO BID #60 tab 06/22/21 verapamil 240 mg PO DAILY #30 tab 06/22/21 Hospital Course Operations - (06/01/21 left hip open reduction internal fixation with intramedullary nail fixation on 06/01/[address] Franky Dorado.) Procedures None Summary of Care Provided Minutes Spent on Discharge: 40 Hospital Course: ONDINA CHIN, is a 56 YO F with a past medical history of hypertension, AKIRA (not compliant with CPAP), obesity, anxiety/depression, adult attention deficit disorder on Ritalin, GERD, tobacco dependence and history of HALL who had a fall at home and came to the ED at [facility] c/o pain in the left leg. XRAY in the ED showed an acute comminuted fracture of the left intertrochanteric region and proximal one third of the femoral shaft with foreshortening and mild displacement. X-rays of the pelvis and the left knee were normal. She was admitted to the hospital and consult was obtained with Dr. Franky Dorado. She was taken to surgery on 06/01/21 for ORIF of the left hip with intramedullary nail fixation. Post operatively she was seen by PT/OT and they recommended acute rehab. She was transferred to the acute rehab floor of [facility] on 06/03/21 for 3 hours of therapy daily to restore function/independence at or near her level prior to the fracture. All lab from the hospital was reviewed and she has acute anemia, due to blood loss from the fracture and ORIF. Hemoglobin at admission to the hospital was 13.2 and on 06/03/2021 it is 9.2. Vitamin D is on the low side at 21.4 and would like to see it 30 or greater. She had a DEXA in 2017 that sowed osteopenia and she is a smoker. HGB was rechecked in rehab and was 10.6. BP's were elevated in rehab. After monitoring for a few days the BP was still over goal and Verapamil was increased for 180 mg daily to 240 mg daily. BP is now well controlled and 1 at the time of my visit was 124/65. Goal BP is less than 135/80. Ondina progressed in therapy. Progress was initially slow due to anxiety and fear of falling. Prior to DC she was able to ambulate 165 ft with a FWW at standby assist with a reciprocal gait pattern. She was able to maintain partial weightbearing on the left lower extremity. She was able to a send/descend 13 steps with 1 handrail and a quad cane on the right at contact-guard assist when backwards to descend to decrease her anxiety. Hand rails and grab bars were installed at her home prior to her DC from rehab. At the time of discharge she was independent with all ADLs. She was discharged home on 06/23/21. BP for 24 hours prior to DC ranged from 109/59 to 143/78. HR is WNL. She denied lightheadedness. Ondina's last DEXA was in 2017 and she had osteopenia at that time. She is a smoker and she has a low Vitamin D level at 21 and it should be > 30. Would consider repeating a DEXA and starting a Vitamin D supplement. she has recently been place on Ritalin for attention deficit. she has a known hx of AKIRA and she is non-compliant with PAP therapy because she can not tolerate the mask. She has gained weight since being placed on Abilify. The attention deficit may be due to untreated AKIRA father than ADD. Would consider getting a new sleep study and treating if she has AKIRA to see if attention and focus improve. Ondina was instructed to discuss the sleep study and a DEXA with Dr. Stone at her next visit. Physical Exam Const alert, oriented x3 and no apparent distress General Appearance: cooperative and comfortable HEENT normocephalic Eyes PERRL, EOMs intact bilaterally, conjunctivae normal and no scleral icterus Neck full ROM, No nuchal rigidity and no carotid bruits General: trachea midline Lymph Lymphatic: no lymphadenopathy noted Chest Chest: symmetrical chest wall rise Resp normal respiratory effort, normal air movement and clear to auscultation bilaterally Effort and Inspection: able to speak in complete sentences Cardio regular rate, regular rhythm, S1 normal heart sound, S2 normal heart sound, no murmurs, no rub and no gallops GI normal to inspection, nondistended, normoactive bowel sounds, soft to palpation and non-tender Back/Spine no CVA tenderness Extremity no calf tenderness Extremity Narrative: She has some ankle edema that is mostly controlled with RAMU hose. She sits with her legs dependent most of the day. Skin Skin Narrative: The incisions are intact with no dehiscence and no erythema or DC. General Skin Exam: no breakdown Rashes: no rashes Neuro oriented x3, CN's II-XII intact bilaterally, moves all extremities, no focal motor deficits and no sensory deficits noted Neuro Narrative: Gait is slow with a FWW with reciprocal step pattern and no LOB. Psych mental status grossly normal, thought process normal, cooperative and affect normal Weight / BMI Weight Weight: 222 lb 6.4 oz Body Mass Index (BMI) 37.5 ABG / Lab / Microbiology Data Result Diagrams: 06/08/21 12:26 D/C Instructions Discharge Diet: - (low salt and low fat) Ice area for (Minutes): 10 Weight Bearing Status: Partial weight bearing (25% weight bearing on the L leg) Keep extremity elevated above heart level: Left Leg Additional Activity Instructions: use the front wheeled walker for ambulation outside the hosue. In side the house you may use the quad cane or the walker. Call your doctor if your incision/area has: Increased Pain/ Swelling, Increased Redness, Foul Smelling Discharge and Swelling at the incision site Call your doctor if you observe: Fever of 101 or Higher, Inability to urinate, Inability to have a bowel movement, Shortness of breath, Chest pain, Increased palpitations (irregular heartbeat), Calf discomfort and Uncontrolled pain Suture Line Care: Avoid Pulling/Pushing, Avoid Pinching/Bending and - (Ok to leave the incision open to air but if you prefer you can cover with a dry gauze) Cleanse incision/area with: Soap & Water Pending Tests Upon Discharge: none Please Follow Up With: Ryan Stone MD When: 7-10 days post DC Meaningful Use Info Meaningful Use Diagnoses (Choose all that apply): None applicable Discharge Plan Admission Admit Date/Time: 06/03/21 14:09 Primary Reason for Your Visit: Physical debility due to Left hip fracture. S/P ORIF. Attending Provider: Kindra Bryan Primary Care Provider: Ryan Stone Consulting Providers: Franky Dorado Instructions Patient Instructions: ED Sleep Apnea, Obstructive Additional Instructions / Restrictions: 1. Motrin and Naprosyn are both good pain relievers and they are over the counter. You can take 400-600 mg of Motrin (Ibuprofen) up to 3 times a day or Naprosyn (Alleve) 400 mg twice a day. 2. Ice helps with pain so if your have pain after exercise ice for 10-15 minutes. 3. Pain lessens over time but, you have to keep moving or you will lose muscle strength and get stiff and you will will have difficulty ambulating. Do the exercises given to you by the therapists at least once every day. 4. she have been diagnosed with sleep apnea in the past and you were prescribed CPAP but, you were not able to tolerate the mask and so you have untreated sleep apnea. You have also gained weight since the last sleep study so the sleep apnea may be worse. One of the side effects of Abilify is it is associated with weight gain. Untreated sleep apnea cause chronic fatigue, decreased motivation, depression, inability to concentrate, memory difficulties, increased blood pressure in the lungs called pulmonary Hypertension, problems with the rhythm of the heart and increases your risk for strokes. It also can lead to addictions because you never feel good and you look for something that makes you feel better. I recommend you discuss getting a new sleep study with Dr. Stone. There are many different masks available now and there are tubes that go in your nose (like getting oxygen) so you may not even need to wear a mask. 5. We have 2 pulmonologists at [facility] that treat sleep apnea and we have a sleep lab. They can try the different masks and nasal apparatus with you to see what works for you. 6. Your blood pressures were high and I increased the Verapamil from 180 mg daily to 240 mg daily. The blood pressures are better. In the morning 1 day prior to discharge your BP was 124/65. 7. You had a bone density test in 2017 and it showed osteopenia which means you have some bone loss. Bone loss leads to fractures. You had a Vitamin D level in the hospital and it was 21.4 which is considered insufficiency. Vitamin D is necessary to absorb calcium from the GI tract. Vitamin D comes from the sun and we do not see much of that in [place], [place] in the winter. I advise you discuss this with Dr. Stone and get on a Vitamin D supplement. You are also due for a new bone density scan. 8. It was a pleasure to meet you Ondina. You did well in therapy and worked hard. If you have any questions after you leave rehab please do not hesitate to call me. My office number is [phone]. If I do not answer please leave a VM and I will get back to you. Discharge Orders/Prescriptions Prescriptions: New oxycodone 5 mg Tablet 5 mg PO Q4H PRN PRN (Reason: Pain 4-10) 7 Days Qty: 28 RF: 0 sennosides-docusate sodium [Stool Softener-Stimulant Laxat] 8.6-50 mg Tablet 2 tab PO BID Qty: 60 RF: 0 verapamil 240 mg Tablet Extended Release 240 mg PO DAILY Qty: 30 RF: 0 Continued trazodone 50 MG tablet 50 mg PO QHS PRN (Reason: Sleep) RF: 0 fluoxetine 10 MG capsule 10 mg PO DAILY RF: 0 aripiprazole 5 MG tablet 5 mg PO DAILY RF: 0 quinapril 20 mg tablet 20 mg PO DAILY RF: 0 methylphenidate HCl 18 mg tablet extended release 24hr 17.25 mg PO DAILY RF: 0 acetaminophen [Tylenol] 325 mg Tablet 650 mg PO Q6H PRN PRN (Reason: Pain Score 1-10/Temp > 100.7 F) Qty: 0 RF: 0 melatonin 3 mg Tablet 3 mg PO QHS PRN PRN (Reason: Insomnia) Qty: 0 RF: 0 polysaccharide iron complex [Ferrex 150] 150 mg iron capsule 150 mg PO DAILY RF: 0 aspirin 81 mg tablet,chewable 81 mg PO BIDCM Qty: 0 RF: 0 Discontinued verapamil 180 mg capsule,ext rel. pellets 24 hr 180 mg PO DAILY RF: 0 oxycodone 5 mg tablet 5 mg PO Q4H PRN PRN (Reason: Pain) RF: 0 No Action sennosides-docusate sodium [Stool Softener-Stimulant Laxat] 8.6-50 mg tablet 2 tab PO BID RF: 0 Referrals / Follow Up: Ryan Stone MD [Primary Care Provider] - 07/03/21 11:50 am () Franky Dorado MD [STAFF PHYSICIAN] - 06/26/21 1:15 pm Disposition Disposition (needs filled in before D/C Order can be placed): Home Health Service Charges/Coding Visit Charges Inpatient E&M: 96653 Disch Hosp
[2021-06-22 21:20] VITALS: BP 109/59; PULSE 76; RESP 17; TEMP 36.6; O2SAT 97
[2021-06-22] MEDS: traZODone 50 MG Tablet PO (21:24)
--- NOTE | 2021-06-23 03:24 | NURSING ---
Reviewed and agree with SENIOR ACCOUNT REPRESENTATIVE assessment and note.
[2021-06-23] MEDS: Aspirin 81 MG TAB.CHEW PO (09:12)
[2021-06-23] MEDS: Verapamil SR 240 MG Tablet PO (09:12)
[2021-06-23] MEDS: Iron Polysaccharide Complex 150 MG CAPSULE PO (09:12)
[2021-06-23] MEDS: ARIPiprazole 5 MG Tablet PO (09:12)
[2021-06-23] MEDS: Methylphenidate HCl 5 MG Tablet PO (09:13)
[2021-06-23] MEDS: FLUoxetine 10 MG Capsule PO (09:13)
[2021-06-23] MEDS: Lisinopril 20 MG Tablet PO (09:13)
[2021-06-23 10:00] VITALS: BP 127/71; PULSE 78; RESP 18; TEMP 36.5; O2SAT 97
[2021-06-23] MEDS: oxyCODONE 5 MG Tablet PO (11:09)
--- NOTE | 2021-06-23 15:09 | NURSING ---
pt given discharge instructions at this time. denies questions or concerns. pt discharges home with significant other via car transfer.
== END 2021-06-23 15:12 | disposition home health service (06) | DRG 560 ==
PROVIDERS: Admitting Provider Internal Medicine; PCP Family Medicine; Visit Provider Internal Medicine
DX: S72.142D Displaced intertrochanteric fracture of left femur, subsequent encounter for closed fracture with routine healing (principal); D62 Acute posthemorrhagic anemia; K75.81 Nonalcoholic steatohepatitis (NASH); K21.9 Gastro-esophageal reflux disease without esophagitis; F17.290 Nicotine dependence, other tobacco product, uncomplicated; I10 Essential (primary) hypertension; W19.XXXD Unspecified fall, subsequent encounter; E55.9 Vitamin D deficiency, unspecified; G47.33 Obstructive sleep apnea (adult) (pediatric); F41.9 Anxiety disorder, unspecified; F32.A Depression, unspecified; G89.18 Other acute postprocedural pain; E66.9 Obesity, unspecified; Z23 Encounter for immunization; Z68.37 Body mass index [BMI] 37.0-37.9, adult; Z79.899 Other long term (current) drug therapy; Z79.82 Long term (current) use of aspirin
CPT/HCPCS: 0002A; 85014; 85018; 91300; 97110; 97116; 97162; 97166; 97530; 97535; 97537; 97542; 97802; 97803; 99251; 99406; G0463

== ENCOUNTER 2021-07-22 09:53 | Outpatient (CLI) | payer MEDICAID, SELFPAY ==
--- NOTE | 2021-07-22 10:00 | BD_ITS ---
STUDY: DUAL ENERGY X-RAY ABSORPTIOMETRY / DXA REASON FOR EXAM: Female, 56 years old. FEMUR FRAC TECHNIQUE: Bone Mineral Density (BMD) measurements of lumbar spine and right hip were obtained. COMPARISON: Comparison is made with prior study of 10/28/2016. FINDINGS: Lumbar Spine (L1-L4): g/cm2 (1.060) / T-score (0.1) / Z-score (1.4) Findings are suggestive of normal bone density with a low fracture risk. Right Femur Total: g/cm2 (0.899) / T-score (-0.4) / Z-score (0.5) Right Femoral Neck: g/cm2 (0.718) / T-score (-1.2) / Z-score (0.0) The T-Scores on the most recent prior examination were: Lumbar Spine (L1-L4): There has been improvement of bone density since the previous examination. Right Femur Total: which represents an improvement of 3.5%. BD/Dexa Bone Density Study IMPRESSION: The patient is considered osteopenic as outlined below according to World [place] Organization (WHO) criteria with a low fracture risk. There has been improvement of bone density since the previous examination. Reference Information: The T-score is the number of standard deviations above or below the standard which is normal for young adults at their peak bone mineral density. The World Health Organization (WHO) interprets the T-scores as follows: Above -1 Normal bone density Between -1 and -2.5 Osteopenia Equal to / or below -2.5 Osteoporosis As a practical clinical guideline, osteopenia may be graded as follows: Mild -1 through -1.5 Moderate -1.6 through -2.0 Severe -2.1 through -2.4 The Z-score is the number of standard deviations above or below age-matched controls. A Z-score of less than -1.5 would be considered abnormal. References: 1. NIH Osteoporosis and Related Bone Diseases www osteo.org 2. International Society for Clinical Densitometry www iscd.org 3. National Osteoporosis Foundation www nof.org Electronically Signed: Jac Chandra MD at 15:24 EDT ,
== END 2021-07-22 23:59 | disposition home or self-care (01) ==
PROVIDERS: PCP Family Medicine; Visit Provider Family Medicine
DX: S72.009A Fracture of unspecified part of neck of unspecified femur, initial encounter for closed fracture (principal)
CPT/HCPCS: 77080

== ENCOUNTER 2021-08-08 10:27 | Emergency (ER) | payer OTHER, MEDICAID, SELFPAY ==
[2021-08-08 10:28] VITALS: BP 198/105; PULSE 81; RESP 18; TEMP 36.4; O2SAT 99; BMI 35.5
--- NOTE | 2021-08-08 10:50 | EDS_ITS ---
HPI History of Present Illness Chief Complaint: Bite Informant: patient Onset/Context/Timing Onset: Days Narrative Narrative: 56-year-old female recent hip fracture. Her had about in her house. The back tested positive for rabies. They are a supposed exposure. But no known bites. Said he came in per their [facility] for rabies immunoglobulin vaccine. Otherwise she feels fine. Prior similar symptoms: No Recent Illness/Hospitalization: No PFSH PFSH Medical History Alcohol use Anxiety Attention deficit disorder CPAP (continuous positive airway pressure) dependence Depression Easy bruising Fall GERD (gastroesophageal reflux disease) Hip fracture, left History of edema Hx of cardiovascular stress test Hx of echocardiogram Hypertension Injury of back HALL (nonalcoholic steatohepatitis) Obesity (BMI 35.0-39.9 without comorbidity) Obstructive sleep apnea Osteopenia Post-menopausal Smoker Vitamin D insufficiency Wears glasses Home Medications trazodone 50 mg PO QHS PRN 12/23/15 [History Last Taken 05/31/21] aripiprazole 5 mg PO DAILY 09/05/20 [History Last Taken 05/31/21] fluoxetine 10 mg PO DAILY 09/05/20 [History Last Taken 05/31/21] methylphenidate HCl 17.25 mg PO DAILY 05/31/21 [History Last Taken 05/31/21] quinapril 20 mg PO DAILY 05/31/21 [History Last Taken 05/31/21] acetaminophen [Tylenol] 650 mg PO Q6H PRN PRN #0 tab 06/03/21 [Rx Last Taken Unknown] melatonin 3 mg PO QHS PRN PRN #0 tab 06/03/21 [Rx Last Taken Unknown] polysaccharide iron complex [Ferrex 150] 150 mg PO DAILY 06/03/21 [History Last Taken Unknown] sennosides-docusate sodium [Stool Softener-Stimulant Laxat] 2 tab PO BID 06/03/21 [History Last Taken Unknown] aspirin 81 mg PO BIDCM #0 tab 06/22/21 [Rx Last Taken Unknown] oxycodone 5 mg PO Q4H PRN PRN 7 Days #28 tab 06/22/21 [Rx Last Taken Unknown] sennosides-docusate sodium [Stool Softener-Stimulant Laxat] 2 tab PO BID #60 tab 06/22/21 [Rx Last Taken Unknown] verapamil 240 mg PO DAILY #30 tab 06/22/21 [Rx Last Taken Unknown] Allergy/AdvReac Type Severity Reaction Status Date / Time esomeprazole magnesium Allergy Other Verified 08/08/21 10:31 [From Nexium] codeine AdvReac Nausea Verified 08/08/21 10:31 fentanyl AdvReac Nausea Verified 08/08/21 10:31 Family History Mother , at 88 YOA She had both cervical CA and lung CA. She was a smoker. 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 Patient is not ill nor having any symptoms of fever, nausea, vomiting or diarrhea. Review of Systems ROS Unobtainable: Denies due to encephalopathy Constitutional Constitutional ED: Denies fever(s) Eyes Eyes: Denies change in vision ENT ENT ED: Denies ear pain Cardiovascular Cardiovascular: Denies chest pain Respiratory/Chest Respiratory/Chest: Denies dyspnea Gastrointestinal Gastrointestinal: Denies abdominal pain Genitourinary Genitourinary ED: Denies dysuria Musculoskeletal Musculoskeletal: Denies myalgias Integumentary Denies rash Neurologic Neurologic: Denies headache(s) Psychiatric Psychiatric: Denies depression Endocrine Endocrinology: Denies polyuria Hematologic/Lymphatic Hematologic/Lymphatic: Denies easy bruising Allergic/Immunologic Allergic/Immunologic ED: Denies urticaria EXAM Physical Exam Narrative Exam Narrative: 56-year-old female no acute distress. Vital signs stable initial blood pressure elevated 198/105. Exam otherwise unremarkable. She is sitting upright in a chair. She has had a recent hip fracture and is using a walker. Const Vital Signs: 08/08/21 10:28 Temperature 97.6 F L Temperature Source Temporal Pulse Rate 81 Respiratory Rate 18 Blood Pressure 198/105 H Blood Pressure Mean 136 Pulse Ox 99 Oxygen Delivery Method Room Air Positive well nourished, well developed and obese; Negative for cachectic, contractures or unkempt General Appearance ED: well developed and NAD; Negative for unkempt, cachectic or contractures Nutritional Appearance: obese; Negative for cachectic HEENT atraumatic; Negative for trauma or tenderness Eyes PERRL and EOMs intact bilaterally Neck full ROM General: tenderness Chest Wall inspection of chest normal and palpation of chest normal Resp normal respiratory effort and clear to auscultation bilaterally Auscultation: Negative for rales, rhonchi or wheezes Cardio regular rhythm, S1 normal heart sound, S2 normal heart sound and no murmurs Rate: regular rate GI normal to inspection, nondistended, normoactive bowel sounds, non-tender, non- distended and no masses Inspection: Negative for abdominal distention Auscultation: normoactive bowel sounds Palpation: soft; Negative for tender, guarding or rebound tenderness present Back/Spine normal to inspection and no thoracic nor lumbar tenderness General Back: Negative for CVA tenderness Thoracic Spine / Upper Back: Negative for thoracic spinal tenderness Extremity normal to inspection General Extremety ED: Negative for deformity or tenderness General Extremity: Negative for deformity Neuro oriented x3 and moves all extremities Sensorium / Orientation: alert, oriented to person, oriented to place and oriented to time; Negative for orientation impaired, lethargic or stuporous Motor Exam: strength 5/5 throughout Psych mental status grossly normal and thought process normal Appearance: Negative for unkempt Skin no rashes or lesions noted and no wounds Skin Narrative: She has a very minimal cat scratch on her left thumb that is not infected. It is several days old. MDM MDM MDM Narrative Medical decision making narrative: Patient with exposure to rabid bat no known bite. Will be treated with rabies immunoglobulin and rabies vaccine and go through the rabies vaccine protocol for days 3, 7 and 14. Discharge Plan Triage Chief Complaint: Bite ED Midlevel Provider: Ti Robert ED Provider: Delmer Rodrigues Dx/Rx/DC Orders Clinical Impression: Exposure to rabies, Need for post exposure prophylaxis for rabies Instructions: Understanding Rabies Prescriptions: No Action trazodone 50 MG tablet 50 mg PO QHS PRN (Reason: Sleep) RF: 0 fluoxetine 10 MG capsule 10 mg PO DAILY RF: 0 aripiprazole 5 MG tablet 5 mg PO DAILY RF: 0 quinapril 20 mg tablet 20 mg PO DAILY RF: 0 methylphenidate HCl 18 mg tablet extended release 24hr 17.25 mg PO DAILY RF: 0 acetaminophen [Tylenol] 325 mg Tablet 650 mg PO Q6H PRN PRN (Reason: Pain Score 1-10/Temp > 100.7 F) Qty: 0 RF: 0 melatonin 3 mg Tablet 3 mg PO QHS PRN PRN (Reason: Insomnia) Qty: 0 RF: 0 polysaccharide iron complex [Ferrex 150] 150 mg iron capsule 150 mg PO DAILY RF: 0 sennosides-docusate sodium [Stool Softener-Stimulant Laxat] 8.6-50 mg tablet 2 tab PO BID RF: 0 oxycodone 5 mg Tablet 5 mg PO Q4H PRN PRN (Reason: Pain 4-10) 7 Days Qty: 28 RF: 0 sennosides-docusate sodium [Stool Softener-Stimulant Laxat] 8.6-50 mg Tablet 2 tab PO BID Qty: 60 RF: 0 verapamil 240 mg Tablet Extended Release 240 mg PO DAILY Qty: 30 RF: 0 aspirin 81 mg tablet,chewable 81 mg PO BIDCM Qty: 0 RF: 0 Primary Care Provider: Ryan Stone Referrals: Ryan Stone MD [Primary Care Provider] - Activity Restrictions/Additional Instructions: Today you be treated both the first rabies vaccine and immunoglobulin. He will need to return days 3, 7 and 14. Just present to the emergency department triage and they will get this done each time. Disposition Disposition: Home, Self Care
[2021-08-08] MEDS: Rabies Vaccine,Human Diploid 2.5 UNITS Vial IM (12:04)
--- NOTE | 2021-08-08 12:42 | ED.RN ---
PT STATES SHE RECEIVED RABIES IMMUNOGLOBULIN AND THE ENTIRE RABIES VACCINE SERIES IN 2016. PER ED MD AND PHARMACIST, PT ONLY REQUIRES 2 DOSE BOOSTERS OF VACCINE.
== END 2021-08-08 12:43 | disposition home or self-care (01) ==
PROVIDERS: Emergency Provider Emergency Medicine; PCP Family Medicine; Visit Provider Emergency Medicine
DX: Z20.3 Contact with and (suspected) exposure to rabies (principal); F17.290 Nicotine dependence, other tobacco product, uncomplicated; I10 Essential (primary) hypertension; F41.9 Anxiety disorder, unspecified; F32.A Depression, unspecified; K21.9 Gastro-esophageal reflux disease without esophagitis; K75.81 Nonalcoholic steatohepatitis (NASH); E66.9 Obesity, unspecified; G47.33 Obstructive sleep apnea (adult) (pediatric); Z78.0 Asymptomatic menopausal state; E55.9 Vitamin D deficiency, unspecified; M85.80 Other specified disorders of bone density and structure, unspecified site; Z79.899 Other long term (current) drug therapy; F98.8 Other specified behavioral and emotional disorders with onset usually occurring in childhood and adolescence; Z79.82 Long term (current) use of aspirin; Z68.35 Body mass index [BMI] 35.0-35.9, adult
CPT/HCPCS: 90375 ×2; 90675; 96372; 99282

== ENCOUNTER 2021-08-11 19:23 | Outpatient (CLI) | payer OTHER, MEDICAID, SELFPAY ==
[2021-08-11] MEDS: Rabies Vaccine,Human Diploid 2.5 UNITS Vial IM (19:48)
[2021-08-11 19:51] VITALS: RESP 16
== END 2021-08-11 23:59 | disposition home or self-care (01) ==
LOC: ED 21:03
PROVIDERS: PCP Family Medicine
DX: Z23 Encounter for immunization (principal)
CPT/HCPCS: 90675; 96372

== ENCOUNTER 2022-03-25 09:52 | Outpatient (CLI) | payer OTHER, MEDICAID, SELFPAY ==
[2022-03-25 13:02] LABS: ALB/GLOB Ratio 1.1 RATIO (0.9-2.4); AST(SGOT) 9 U/L (15-37); Alanine Aminotransfer ALT/SGPT 19 U/L (13-56); Albumin, Serum 3.9 g/dL (3.2-5.0); Alkaline Phosphatase 78 U/L (45-117); Anion Gap 5 (5-15); BUN 14 mg/dL (7-18); BUN/Creat Ratio 22.2 RATIO (10-20); Calcium,Total 9.7 mg/dL (8.5-10.1); Chloride 106 mmol/L (98-107); Creatinine, Serum 0.63 mg/dL (0.55-1.02); EST Glomerular Filtration Rate 103 mL/min (>60); Est Glom Filt Rate - Afr Amer 124 mL/min (>60); Globulin 3.6 g/dL (2.2-4.2); Glucose 89 mg/dL (74-106); Potassium 3.8 mmol/L (3.5-5.1); Protein, Total 7.5 g/dL (6.4-8.2); Sodium Level 138 mmol/L (136-145); Thyroid Stim Hormone (TSH) 2.34 uIU/mL (0.358-3.74)
[2022-03-25 13:34] LABS: Microalbumin,Random Urine < 5.0 mg/L (NO RANGE EST.)
== END 2022-03-25 23:59 | disposition home or self-care (01) ==
LOC: MFPLAB 09:56
PROVIDERS: PCP Family Medicine; Referring Provider Family Medicine; Visit Provider Family Medicine
DX: I10 Essential (primary) hypertension (principal)
CPT/HCPCS: 36415; 80053; 82043; 82570; 84443

== ENCOUNTER 2022-04-07 12:46 | Outpatient (CLI) | payer OTHER, MEDICAID, SELFPAY ==
--- NOTE | 2022-04-07 12:52 | VDLE_ITS ---
Reason For Study: Swelling RIGHT LEFT CFV is compressible, spontaneous, phasic, GSV is normal. competent and demonstrates normal CFV is compressible, spontaneous, phasic, augmentation. competent, and demonstrates normal Procedure augmentation. This is a venous duplex using B-mode, color FV is compressible, spontaneous, phasic, flow and spectral Doppler. competent and demonstrates normal Exam performed in department. augmentation. A preliminary report was called and/or faxed POP V is compressible, spontaneous, phasic, to Dr. Stone. competent and demonstrates normal augmentation. T/P Trunk is compressible. PTV is compressible. LT PerV is compressible. Hypoechoic, non vascular structure noted Lt Pop Fossa measuring 1.11cm x 2.22cm. VL/Venous Duplex US, Unilateral Interpretation Summary Deep veins of the left lower extremity are patent and compressible segmentally. There is no evidence of left lower extremity deep vein thrombosis. Valvular competence appears intac t within the proximal deep venous system on the left . The left great saphenous vein appears patent a nd compressible segmentally. A non-vascular, hypoechoic structure is noted in the left poplitea l space, measuring 1.11 cm x 2.22 cm. This probably represents a popliteal cyst. Clinical correlat ion is advised. Ordering Physician: Ryan Stone Referring Physician: Ryan Stone Performed By: Elle Vizcaino, RDCS, RVT
== END 2022-04-07 23:59 | disposition home or self-care (01) ==
LOC: CVS 12:48
PROVIDERS: PCP Family Medicine; Referring Provider Family Medicine; Visit Provider Family Medicine
DX: M79.89 Other specified soft tissue disorders (principal)
CPT/HCPCS: 93971

== ENCOUNTER → 2022-05-14 | Outpatient (CLI) | payer OTHER, SELFPAY | END | disposition home or self-care (01) | LOC: LABSPEC 15:10 | PROVIDERS: PCP Family Medicine; Visit Provider Family Medicine | DX: R30.0 Dysuria (principal) | CPT/HCPCS: 87086; 87088 ==

== ENCOUNTER 2022-08-24 17:41 | Emergency (ER) | payer OTHER, SELFPAY ==
[2022-08-24 17:42] VITALS: BP 219/110; PULSE 86; RESP 18; TEMP 36.6; O2SAT 96; BMI 38.3
--- NOTE | 2022-08-24 19:50 | EDS_ITS ---
HPI History of Present Illness Chief Complaint: Occup Expose Informant: patient Narrative Narrative: Patient presents after exposure to a bat while she was sleeping. The cat then killed it and brought it into their bathroom where she was exposed to it although did not touch it. Patient has had her original series many years ago. She had a booster about a year or 2 ago. She has no symptoms at all. She has no bite flroez PFSH [facility] Medical History Alcohol use Anxiety Attention deficit disorder CPAP (continuous positive airway pressure) dependence Depression Easy bruising Fall GERD (gastroesophageal reflux disease) Hip fracture, left History of edema Hx of cardiovascular stress test Hx of echocardiogram Hypertension Injury of back HALL (nonalcoholic steatohepatitis) Obesity (BMI 35.0-39.9 without comorbidity) Obstructive sleep apnea Osteopenia Post-menopausal Smoker Vitamin D insufficiency Wears glasses Home Medications trazodone 50 mg tablet 50 mg PO QHS PRN Sleep 12/23/15 [History Last Taken 05/31/21] aripiprazole 5 mg tablet 5 mg PO DAILY mood 09/05/20 [History Last Taken 05/31/21] fluoxetine 10 mg capsule 10 mg PO DAILY depression 09/05/20 [History Last Taken 05/31/21] methylphenidate HCl 18 mg tablet,extended release 24 hr 17.25 mg PO DAILY Check with primary doctor 05/31/21 [History Last Taken 05/31/21] quinapril 20 mg tablet 20 mg PO DAILY blood pressure 05/31/21 [History Last Taken 05/31/21] acetaminophen 325 mg tablet (Tylenol) 650 mg PO Q6H PRN PRN Pain Score 1-10/Temp > 100.7 F #0 tabs 06/03/21 [Rx Last Taken Unknown] melatonin 3 mg tablet 3 mg PO QHS PRN PRN Insomnia #0 tabs 06/03/21 [Rx Last Taken Unknown] polysaccharide iron complex 150 mg iron capsule (Ferrex) 150 mg PO DAILY supplement 06/03/21 [History Last Taken Unknown] sennosides 8.6 mg-docusate sodium 50 mg tablet (Stool Softener-Stimulant Laxative) 2 tab PO BID bowel mobility 06/03/21 [History Last Taken Unknown] aspirin 81 mg chewable tablet 81 mg PO BID heart health #0 tabs 06/22/21 [Rx Last Taken Unknown] oxycodone 5 mg tablet 5 mg PO Q4H PRN PRN Pain 4-10 7 days #28 tabs 06/22/21 [Rx Last Taken Unknown] sennosides 8.6 mg-docusate sodium 50 mg tablet (Stool Softener-Stimulant Laxative) 2 tab PO BID #60 tabs 06/22/21 [Rx Last Taken Unknown] verapamil 240 mg tablet,extended release 240 mg PO DAILY #30 tabs 06/22/21 [Rx Last Taken Unknown] Allergy/AdvReac Type Severity Reaction Status Date / Time esomeprazole magnesium Allergy Other Verified 08/24/22 17:44 [From Nexium] codeine AdvReac Nausea Verified 08/24/22 17:44 fentanyl AdvReac Nausea Verified 08/24/22 17:44 Family History Mother , at 88 YOA She had both cervical CA and lung CA. She was a smoker. 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 Constitutional Constitutional ED: Denies chills or fever(s) Gastrointestinal Gastrointestinal: Denies nausea or vomiting Musculoskeletal Musculoskeletal: Denies myalgias Integumentary Denies abscess, Abrasions or rash EXAM Physical Exam Narrative Exam Narrative: Patient awake alert sitting down very comfortable. HEENT shows no trauma. Neck is supple free range of motion Lungs are clear saturations normal Heart is regular. There is no florez or abrasions on her skin anywhere. Const Vital Signs: 08/24/22 17:42 Temperature 97.9 F Temperature Source Temporal Pulse Rate 86 Respiratory Rate 18 Blood Pressure 219/110 H Blood Pressure Mean 146 Pulse Ox 96 Oxygen Delivery Method Room Air MDM MDM MDM Narrative Medical decision making narrative: Patient has had original series and boosters. She will have shot now and in 3 days. She does not need immunoglobulin. Discharge Plan Triage Chief Complaint: Occup Expose ED Provider: Cuco Urias Dx/Rx/DC Orders Clinical Impression: Contact with and exposure to rabies Instructions: Understanding Rabies Prescriptions: No Action trazodone 50 MG tablet 50 mg PO QHS PRN (Reason: Sleep) fluoxetine 10 MG capsule 10 mg PO DAILY aripiprazole 5 MG tablet 5 mg PO DAILY quinapril 20 mg tablet 20 mg PO DAILY methylphenidate HCl 18 mg tablet extended release 24hr 17.25 mg PO DAILY acetaminophen [Tylenol] 325 mg Tablet 650 mg PO Q6H PRN PRN (Reason: Pain Score 1-10/Temp > 100.7 F) Qty: 0 0RF melatonin 3 mg Tablet 3 mg PO QHS PRN PRN (Reason: Insomnia) Qty: 0 0RF polysaccharide iron complex [Ferrex 150] 150 mg iron capsule 150 mg PO DAILY sennosides-docusate sodium [Stool Softener-Stimulant Laxat] 8.6-50 mg tablet 2 tab PO BID oxycodone 5 mg Tablet 5 mg PO Q4H PRN PRN (Reason: Pain 4-10) 7 Days Qty: 28 0RF sennosides-docusate sodium [Stool Softener-Stimulant Laxat] 8.6-50 mg Tablet 2 tab PO BID Qty: 60 0RF verapamil 240 mg Tablet Extended Release 240 mg PO DAILY Qty: 30 0RF aspirin 81 mg tablet,chewable 81 mg PO BIDCM Qty: 0 0RF Rx Instructions: You can quit taking the Aspirin on July 04 Primary Care Provider: Ryan Stone Referrals: Ryan Stone MD [Primary Care Provider] - As Needed Activity Restrictions/Additional Instructions: VaccineFollow-up in 3 days for second Disposition Disposition: Home, Self Care
[2022-08-24] MEDS: Rabies Vaccine,Human Diploid 2.5 UNITS Vial IM (20:14)
== END 2022-08-24 20:38 | disposition home or self-care (01) ==
PROVIDERS: Emergency Provider Emergency Medicine; PCP Family Medicine; Visit Provider Emergency Medicine
DX: Z20.3 Contact with and (suspected) exposure to rabies (principal); I10 Essential (primary) hypertension; F32.A Depression, unspecified; F98.8 Other specified behavioral and emotional disorders with onset usually occurring in childhood and adolescence; Z79.899 Other long term (current) drug therapy; Z99.89 Dependence on other enabling machines and devices; Z79.82 Long term (current) use of aspirin; Z90.722 Acquired absence of ovaries, bilateral; F17.290 Nicotine dependence, other tobacco product, uncomplicated
CPT/HCPCS: 90675; 99282

== ENCOUNTER 2022-08-27 07:43 | Outpatient (CLI) | payer OTHER, SELFPAY ==
[2022-08-27 07:45] VITALS: BP 178/96; PULSE 84; RESP 16; TEMP 36.9; O2SAT 98
[2022-08-27] MEDS: Rabies Vaccine,Human Diploid 2.5 UNITS Vial IM (08:21)
== END 2022-08-27 08:27 | disposition home or self-care (01) ==
LOC: ED 13:20
PROVIDERS: PCP Family Medicine; Visit Provider Emergency Medicine
DX: Z23 Encounter for immunization (principal)
CPT/HCPCS: 90675; 96372

== ENCOUNTER → 2022-12-09 | Outpatient (CLI) | payer OTHER, SELFPAY ==
--- NOTE | 2022-12-09 07:57 | BI_ITS ---
MAMMOGRAPHY - BILATERAL SCREENING REASON FOR EXAM: Female, 57 years old. Routine annual screening examination. PERTINENT HISTORY: Non-contributory. TECHNIQUE: Digital bilateral breast nayla (3D mammographic acquisition) in the CC and MLO projections. 2-D mediolateral oblique (MLO) and craniocaudad (CC) views of both breasts were obtained. CAD: Full Field Digital Mammography with Computer Added Detection was performed. COMPARISON: Comparison is made with prior study of September 18, 2020 and September 11, 2018. FINDINGS: Breast Composition: There are scattered areas of fibroglandular density. There is a 6.4 mm x 10.2 mm well-defined nodule in the retroareolar region of the left breast. Correlation with ultrasound is recommended. Stable bilateral axillary nodes. No other significant abnormalities are identified. BI/SCRN MAMM (CAD)W/NAYLA BILAT IMPRESSION: 6.4 mm x 10.2 mm well-defined nodule in the retroareolar region of the left breast as described. Correlation with ultrasound is recommended. ASSESSMENT CATEGORY: BIRADS Category 0: Incomplete. Need additional imaging evaluation. A letter regarding these results will be sent to the patient by the facility within 30 days. Approximately 10% of breast cancers are not detected by mammography. A normal mammogram should not delay biopsy of a clinically suspicious abnormality. [id number] Electronically Signed: Jac Chandra MD at 9:54 EDT ,
== END | disposition home or self-care (01) ==
PROVIDERS: PCP Family Medicine; Referring Provider Nurse Practitioner Women's Health; Visit Provider Nurse Practitioner Women's Health
DX: Z12.31 Encounter for screening mammogram for malignant neoplasm of breast (principal)
CPT/HCPCS: 77063; 77067

== ENCOUNTER → 2022-12-10 | Outpatient (CLI) | payer OTHER, SELFPAY ==
--- NOTE | 2022-12-10 08:17 | US_ITS ---
STUDY: ULTRASOUND BREAST - LEFT REASON FOR EXAM: Female, 57 years old. Abnormal screening mammogram. TECHNIQUE: Axial and longitudinal images of the LEFT breast were performed with a high resolution ultrasound transducer. # OF IMAGES: 12 COMPARISON: Comparison is made with prior mammogram dated December 09, 2022. FINDINGS: LEFT Breast: The mammographic abnormality corresponds to a 9 mm x 9 mm x 5 mm complex cyst at the 6:00 position of the breast at 1 cm from the nipple. This most likely represents a cyst with possible hemorrhage. Cyst drainage is recommended. US/Breast Limited Unilateral IMPRESSION: 9 mm x 9 mm x 5 mm complex cyst in the retroareolar region of the left breast corresponding to the mammographic findings. Breast aspiration is recommended. ASSESSMENT CATEGORY: BIRADS Category 4: Suspicious - Biopsy Should Be Considered. A letter regarding these results will be sent to the patient by the facility within 30 days. Electronically Signed: Jac Chandra MD at 14:15 EDT ,
== END | disposition home or self-care (01) ==
LOC: OPUS 08:14
PROVIDERS: PCP Family Medicine; Referring Provider Nurse Practitioner Women's Health; Visit Provider Nurse Practitioner Women's Health
DX: R92.8 Other abnormal and inconclusive findings on diagnostic imaging of breast (principal)
CPT/HCPCS: 76642

== ENCOUNTER → 2023-08-08 | Outpatient (CLI) | payer OTHER, SELFPAY ==
[2023-08-08 12:24] LABS: Absolute Lymphocyte Count 1.95 X10^3/uL (0.83-4.51); Absolute Neutrophil Count 6.7 X10^3/uL (2.0-7.7); Basophil# 0.06 X10^3/uL; Basophil% 0.6 % (0-1); Eosinophil# 0.05 X10^3/uL; Eosinophils% 0.5 % (0-5); Hematocrit 44.3 % (37-47); Hemoglobin 14.6 g/dL (12.0-15.0); Lymphocyte # 1.95 X10^3/ul (0.83-4.51); Mean Corpuscular Hgb 30.4 pg (27.0-32.0); Mean Corpuscular Volume 92.1 fL (81-99); Mean Platelet Vol. 9.5 fl (6.2-12.0); Monocyte# 0.48 X10^3/uL; Monocyte% 5.2 % (0-10); NRBC Flagged by Analyzer 0 % (0-5); Neutrophil # 6.73 X10^3/uL (2.7-7.7); Neutrophil % 72.4 % (47-70); Platelet Count 350 K/mm3 (150-450); RBC Distribution Width CV 12.6 % (11.6-14.6); RBC Distribution Width SD 42.5 fl (35.1-43.9); Red Blood Count 4.81 M/mm3 (4.2-5.4); White Blood Count 9.3 K/mm3 (4.4-11.0)
[2023-08-08 12:36] LABS: Microalbumin,Random Urine 6.6 mg/L (NO RANGE EST.); Microalbumin:Creatinine Ratio 20.2 mg/g CRE (<30 mg/g CRE)
[2023-08-08 13:35] LABS: AST(SGOT) 14 U/L (15-37); Alanine Aminotransfer ALT/SGPT 22 U/L (13-56); Alkaline Phosphatase 86 U/L (45-117); Anion Gap 7 (5-15); BUN 14 mg/dL (7-18); BUN/Creat Ratio 15.7 RATIO (10-20); Calcium,Total 10.1 mg/dL (8.5-10.1); Chloride 105 mmol/L (98-107); Creatinine, Serum 0.89 mg/dL (0.55-1.02); EST Glomerular Filtration Rate 68 mL/min (>60); Est Glom Filt Rate - Afr Amer 83 mL/min (>60); Globulin 3.9 g/dL (2.2-4.2); Glucose 95 mg/dL (74-106); Potassium 3.6 mmol/L (3.5-5.1); Protein, Total 7.9 g/dL (6.4-8.2); Sodium Level 138 mmol/L (136-145); Thyroid Stim Hormone (TSH) 1.55 uIU/mL (0.358-3.74)
[2023-08-09 04:07] LABS: Fructosamine 202 umol/L (0-285)
== END | disposition home or self-care (01) ==
LOC: MFPLAB 11:10
PROVIDERS: PCP Family Medicine; Visit Provider Family Medicine
DX: E16.2 Hypoglycemia, unspecified (principal); I10 Essential (primary) hypertension; E66.9 Obesity, unspecified; Z68.36 Body mass index [BMI] 36.0-36.9, adult
CPT/HCPCS: 36415; 80053; 82043; 82570; 82985; 84443; 85025

== ENCOUNTER → 2024-09-05 | Outpatient (CLI) | payer OTHER, SELFPAY ==
--- NOTE | 2024-09-05 08:20 | BI_ITS ---
EXAM: SCRN MAMM (CAD)W/NAYLA BILAT DATE: 09/05/2024 CLINICAL HISTORY: F, Age 59 y/o , SCREENING BREAST CANCER RISK ASSESSMENT: Has not been calculated. TECHNIQUE: Bilateral screening digital breast tomosynthesis with 2D and 3D images. Computer aided detection. COMPARISON: Prior exam(s) dated 12/09/2022 and 09/18/2020. FINDINGS: TISSUE DENSITY: The breast tissue is almost entirely fatty. Bilateral Breast Mammographic Findings: There are no suspicious masses, suspicious clustered microcalcifications, architectural distortion or secondary signs of malignancy identified in either breast. There has been no overall significant change since the prior exam. Benign-appearing round microcalcifications are seen in both breasts. BI/SCRN MAMM (CAD)W/NAYLA BILAT IMPRESSION: OVERALL FINAL ASSESSMENT: BIRADS 2 BENIGN FINDING RECOMMENDATION: Routine annual follow-up in 1 Year A letter with findings and recommendations will be mailed to the patient. Reading Location: [id number]
== END | disposition home or self-care (01) ==
PROVIDERS: PCP Family Medicine; Referring Provider Family Medicine; Visit Provider Family Medicine
DX: Z12.31 Encounter for screening mammogram for malignant neoplasm of breast (principal)
CPT/HCPCS: 77063; 77067

== ENCOUNTER → 2024-09-18 | Outpatient (CLI) | payer OTHER, SELFPAY ==
[2024-09-18 15:50] LABS: Uric Acid 10.5 mg/dL (2.6-6.0)
== END | disposition home or self-care (01) ==
LOC: MTLAB 11:41
PROVIDERS: PCP Family Medicine; Referring Provider Family Medicine; Visit Provider Family Medicine
DX: Z00.01 Encounter for general adult medical examination with abnormal findings (principal)
CPT/HCPCS: 36415; 84550

== ENCOUNTER → 2024-09-20 | Outpatient (CLI) | payer OTHER, SELFPAY ==
--- NOTE | 2024-09-20 07:27 | US_ITS ---
PROCEDURE: ABD LIMITED W/ ELASTOGRAPHY REASON FOR EXAM: HALL COMPARISON: Prior study dated December 02, 2015. TECHNIQUE: Right upper quadrant abdominal ultrasound. Miguel ElastQ Imaging shear wave elastography for non-invasive assessment of liver tissue stiffness. Miguel EPIQ Elite. FINDINGS: LIVER: Size: Unremarkable Length: 17.3 cm Echotexture: Diffusely echogenic suggesting fatty infiltration Contour: Normal Lesions: None identified Elastography: EQI Med: 15.8 kPa EQI Med Jose: 2.25 m/s IQR/Med: 27 %* GALLBLADDER: Multiple echogenic gallstones are identified. COMMON BILE DUCT: Normal measuring 4 mm . PANCREAS: Visualized portions are sonographically unremarkable. Visualized portions of the right kidney are unremarkable. No right upper quadrant ascites. US/ABD Limited w/ Elastography IMPRESSION: SEVERE HEPATIC FIBROSIS / CIRRHOSIS Reference Values: SRU <1.37 m/s (5.7kPa): No to mild fibrosis 1.37 m/s - 2.2 m/s: Moderate to severe fibrosis >2.2 m/s (15kPa): Significant fibrosis / cirrhosis METAVIR Score F2 or higher: 1.34 m/s (5.7kPa) F3 or higher: 1.55 m/s (7.3kPa) F4: 1.80 m/s (10kPa) * If the IQR/Med is >30%, the variance in the measurements is a large and the a ccuracy of the measurement may be in question. Reading Location: [id number]
[2024-09-20 08:23] LABS: Absolute Lymphocyte Count 1.97 X10^3/uL (0.83-4.51); Absolute Neutrophil Count 5.3 X10^3/uL (2.0-7.7); Basophil# 0.04 X10^3/uL; Basophil% 0.5 % (0-1); Eosinophil# 0.11 X10^3/uL; Eosinophils% 1.4 % (0-5); Hematocrit 41.1 % (37-47); Hemoglobin 13.8 g/dL (12.0-15.0); Lymphocyte # 1.97 X10^3/ul (0.83-4.51); Lymphocyte % 24.7 % (19-41); Mean Corp Hgb Conc 33.6 g/dL (32-36); Mean Corpuscular Hgb 30.9 pg (27.0-32.0); Mean Corpuscular Volume 92.2 fL (81-99); Mean Platelet Vol. 9.7 fl (6.2-12.0); Monocyte# 0.54 X10^3/uL; Monocyte% 6.8 % (0-10); NRBC Flagged by Analyzer 0 % (0-5); Neutrophil % 66.2 % (47-70); Platelet Count 361 K/mm3 (150-450); RBC Distribution Width CV 12.2 % (11.6-14.6); RBC Distribution Width SD 41.3 fl (35.1-43.9); Red Blood Count 4.46 M/mm3 (4.2-5.4)
[2024-09-20 09:07] LABS: Hemoglobin A1c 5.5 % (<=5.6)
[2024-09-20 09:18] LABS: Cholesterol 140 mg/dL (<=200); High Density Lipoprotein 46 mg/dL; Low Density Lipoprotein Calc. 61 mg/dL; Triglycerides 162 mg/dL; Very Low Density Lipoprotein 32 mg/dL (5-40); cholesterol:hdl ratio screen 3.03
[2024-09-20 09:26] LABS: ALB/GLOB Ratio 1.2 RATIO (0.9-2.4); AST(SGOT) 29 U/L (<=31); Alanine Aminotransfer ALT/SGPT 27 U/L (<=34); Albumin, Serum 4.4 g/dL (3.4-4.8); Alkaline Phosphatase 87 U/L (35-104); Anion Gap 13 (5-15); BUN 10 mg/dL (4-19); BUN/Creat Ratio 13.6 RATIO (10-20); Calcium,Total 10.4 mg/dL (7.6-11.0); Carbon Dioxide 24.8 mmol/L (21.0-32.0); Chloride 100 mmol/L (98-108); Creatinine, Serum 0.76 mg/dL (0.70-1.20); EST Glomerular Filtration Rate 89 (>60); Globulin 3.6 g/dL (2.2-4.2); Glucose 91 mg/dL (70-99); Potassium 4.2 mmol/L (3.3-5.1); Protein, Total 7.9 g/dL (5.9-8.4); Sodium Level 137 mmol/L (133-145); Total Bilirubin 0.75 mg/dL (0.00-1.30)
== END | disposition home or self-care (01) ==
PROVIDERS: PCP Family Medicine; Referring Provider Family Medicine; Visit Provider Family Medicine
DX: K75.81 Nonalcoholic steatohepatitis (NASH) (principal)
CPT/HCPCS: 36415; 76705; 76981; 80053; 80061; 83036; 84443; 85025

== ENCOUNTER → 2024-11-22 | Outpatient (CLI) | payer OTHER, SELFPAY ==
[2024-11-22 13:05] LABS: Anion Gap 14 (5-15); BUN 16 mg/dL (4-19); BUN/Creat Ratio 18.8 RATIO (10-20); Calcium,Total 10.2 mg/dL (7.6-11.0); Carbon Dioxide 23.9 mmol/L (21.0-32.0); Chloride 100 mmol/L (98-108); Glucose 95 mg/dL (70-99); Potassium 4.1 mmol/L (3.3-5.1); Uric Acid 6.3 mg/dL (2.6-6.0)
[2024-11-22 13:22] LABS: Hepatitis B Surface Antigen Nonreactive (Nonreactive); Hepatitis C Antibody Nonreactive (Nonreactive)
== END | disposition home or self-care (01) ==
LOC: MTLAB 09:27
PROVIDERS: PCP Family Medicine; Referring Provider Nurse Practitioner Acute Care; Visit Provider Nurse Practitioner Acute Care
DX: K76.0 Fatty (change of) liver, not elsewhere classified (principal)
CPT/HCPCS: 36415; 80048; 84550; 86704; 86706; 86708; 86803; 87340